=== PATIENT | female | born 1935 | race Caucasian/White ===

== ENCOUNTER 2016-10-19 12:52 | Inpatient (IN) | payer OTHER, MEDICARE ==
[2016-10-19] VITALS (7 sets, daily range): BP systolic 122–144; BP diastolic 60–70; PULSE 66–90; RESP 16–28; TEMP 97.6–97.7; O2SAT 98–100
[~2016-10-19] VITALS: Ht 152.4 cm; Wt 68.4 kg
[~2016-10-19 12:52] MED LIST: DEXAMETHASONE SOD PHOS 20 MG/5 ML VIAL IV ONE; LACTATED RINGER'S 1000 ML INJ 2,000 ML IV ONE; ONDANSETRON HCL 4 MG/2 ML VIAL IV PUSH ONE; PROPOFOL 200 MG/20 ML AMP IV ONE; ePHEDrine/NS 25 MG/5 ML SYR IV ONE
[2016-10-19] MEDS ORDERED: ONDANSETRON HCL 4 MG/2 ML VIAL ONE ×2 (12:58→13:30)
[2016-10-19] MEDS ORDERED: ceFAZolin 2 GM PREMIX 50 ML ONE (12:58)
[2016-10-19] MEDS ORDERED: GENTAMICIN 80 MG PREMIX 100 ML ONE (12:58)
[2016-10-19] MEDS ORDERED: MORPHINE SULFATE 8 MG/ML INJ ONE (12:58)
[2016-10-19 13:11] LABS: I-STAT POTASSIUM 4.9 MMOL/L (3.5-4.9)
[2016-10-19] MEDS ORDERED: DIPHTH/TETANUS/ACEL PERTUSSIS (BOOSTER) 0.5 ML VIAL/PFS IM ONE (13:15)
[2016-10-19] MEDS ORDERED: SODIUM CHLOR 0.9% 1000 ML INJ 1,000 ML IV SCH (13:19)
[2016-10-19 13:21] LABS: AUTOMATED NEUTROPHIL # 8.7 TH/MM3 (1.8-7.7); BASOPHIL % 0.3 % (0.0-2.0); EOSINOPHIL # 0.1 TH/MM3 (0-0.4); EOSINOPHIL % 0.4 % (0.0-4.0); HEMATOCRIT 34.7 % (35.0-46.0); HEMO FLAGS DIFF FINAL; LYMPH % 24.3 % (9.0-44.0); LYMPHOCYTE # 3.1 TH/MM3 (1.0-4.8); MEAN CELL VOLUME 90.8 FL (80.0-100.0); MEAN CORPUSCULAR HEMOGLOBIN 29.4 PG (27.0-34.0); MEAN CORPUSCULAR HGB CONC 32.4 % (32.0-36.0); MONO % 7.2 % (0.0-8.0); NEUT % 67.8 % (16.0-70.0); PLATELET COUNT 340 TH/MM3 (150-450); RED BLOOD COUNT 3.82 MIL/MM3 (4.00-5.30); RED CELL DISTRIBUTION WIDTH 12.8 % (11.6-17.2); WHITE BLOOD COUNT 12.8 TH/MM3 (4.0-11.0)
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
[2016-10-19 13:29] LABS: PROTHROMBIN TIME - PATIENT 11.2 SEC (9.8-11.6)
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
[2016-10-19] MEDS ORDERED: MORPHINE SULFATE 4 MG/ML INJ IV PRN (13:30)
[2016-10-19] MEDS ORDERED: SODIUM CHLORIDE 0.9% FLUSH 10 ML FLUSH IV FLUSH PRN (13:30)
[2016-10-19] MEDS ORDERED: ONDANSETRON HCL 4 MG/2 ML VIAL IV PRN (13:30)
[2016-10-19] MEDS ORDERED: Post-op Orders (for Pharmacy) MISC XX ONE ×2 (13:30→17:15)
[2016-10-19] MEDS ORDERED: NALOXONE HCL 0.4 MG/ML AMP IV PRN ×2 (13:30→17:15)
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
[2016-10-19] MEDS ORDERED: GENTAMICIN SULFATE 80 MG/2 ML VIAL ONE (13:44)
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
[2016-10-19] MEDS: fentaNYL 25 MCG/HR PATCH T-DERMAL SCH (14:00)
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
[2016-10-19] MEDS ORDERED: ACETAMINOPHEN 1000 MG/100 ML VIAL IV ONE (15:07)
[2016-10-19] MEDS ORDERED: FAMOTIDINE 20 MG/2 ML VIAL ONE (15:08)
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
[2016-10-19] MEDS ORDERED: TIZA4TAB PO (16:32)
[2016-10-19] MEDS ORDERED: LOVA40TA PO (16:32)
[2016-10-19] MEDS ORDERED: TRIMSOL LEFT EYE (16:32)
[2016-10-19] MEDS ORDERED: LORA-392 PO (16:32)
[2016-10-19] MEDS ORDERED: TYLETAB34 PO (16:32)
[2016-10-19] MEDS ORDERED: POTA-243 PO (16:32)
[2016-10-19] MEDS ORDERED: BUME1TAB PO (16:32)
[2016-10-19] MEDS ORDERED: CALC0.25 PO (16:32)
[2016-10-19] MEDS ORDERED: ZOFR4TAB PO (16:32)
[2016-10-19] MEDS ORDERED: MISCELLANEOUS PHARMACY INFORMATION XX ONE (17:15)
[2016-10-19] MEDS ORDERED: MISCELLANEOUS NURSING INFORMATION XX PRN (17:15)
[2016-10-19] MEDS ORDERED: SODIUM CHLORIDE 0.9% FLUSH 5 ML FLUSH IVF PRN (17:15)
[2016-10-19] MEDS ORDERED: diphenhydrAMINE HCL 25 MG CAP PO PRN (17:15)
[2016-10-19] MEDS ORDERED: Gentamicin Consult Pharmacy 1 EA IV PRN (17:15)
[2016-10-19] MEDS ORDERED: MAGNESIUM HYDROXIDE SUSP 30 ML CUP PO PRN (17:15)
[2016-10-19] MEDS ORDERED: ACETAMINOPHEN/HYDROcodone 325 MG/5 MG TAB PO PRN ×2 (17:15)
[2016-10-19] MEDS ORDERED: MIDAZOLAM HCL 2 MG/2 ML VIAL ONE (17:53)
[2016-10-19] MEDS ORDERED: fentaNYL CITRATE 250 MCG/5 ML AMP ONE (17:53)
[2016-10-19] MEDS: DEXT 5%-NACL 0.45% 1000 ML INJ 1,000 ML IV SCH (18:00)
[2016-10-19] MEDS ORDERED: DO NOT ADM ANY ANTICOAGULANT DRUGS PRN (18:15)
[2016-10-19] MEDS: PANTOPRAZOLE SODIUM 40 MG VIAL IV SCH (18:15)
[2016-10-19] MEDS: MORPHINE SULFATE 4 MG/ML INJ IV PUSH PRN (20:20)
[2016-10-19] MEDS: ONDANSETRON HCL 4 MG/2 ML VIAL IVP PRN (20:21)
[2016-10-19] MEDS ORDERED: SODIUM CHLORIDE 0.9% FLUSH 10 ML FLUSH IV FLUSH SCH (21:00)
[2016-10-19] MEDS: DOCUSATE SODIUM 50 MG/SENNA 8.6 MG TAB PO SCH (21:00)
[2016-10-19] MEDS ORDERED: DOCUSATE SODIUM 100 MG CAP PO SCH (21:00)
[2016-10-19] MEDS: MAGNESIUM HYDROXIDE SUSP 30 ML CUP PO SCH (21:00)
[2016-10-19] MEDS: SODIUM CHLORIDE 0.9% FLUSH 5 ML FLUSH IVF SCH (21:00)
[2016-10-19] MEDS ORDERED: BACITRACIN TOP OINT 15 GM TUBE TOPICAL PRN (21:30)
[2016-10-19] MEDS: BACITRACIN TOP OINT 15 GM TUBE TOPICAL SCH (21:36)
[2016-10-20] VITALS (13 sets, daily range): BP systolic 109–160; BP diastolic 53–76; PULSE 90–115; RESP 15–23; TEMP 98.5–99.3; O2SAT 96–100
[2016-10-20] MEDS: MORPHINE SULFATE 4 MG/ML INJ IV PUSH PRN (01:35)
[2016-10-20] MEDS: DEXT 5%-NACL 0.45% 1000 ML INJ 1,000 ML IV SCH (05:12)
[2016-10-20 05:35] LABS: AUTOMATED NEUTROPHIL # 11.2 TH/MM3 (1.8-7.7); BASOPHIL % 0.2 % (0.0-2.0); BICARBONATE 20.9 MEQ/L (21.0-32.0); HEMATOCRIT 28.2 % (35.0-46.0); HEMO FLAGS DIFF FINAL; LYMPH % 5.8 % (9.0-44.0); LYMPHOCYTE # 0.8 TH/MM3 (1.0-4.8); MEAN CELL VOLUME 90.8 FL (80.0-100.0); MEAN CORPUSCULAR HEMOGLOBIN 29.3 PG (27.0-34.0); MEAN CORPUSCULAR HGB CONC 32.3 % (32.0-36.0); MONO % 7.9 % (0.0-8.0); NEUT % 86.1 % (16.0-70.0); PLATELET COUNT 281 TH/MM3 (150-450); POTASSIUM 4.5 MEQ/L (3.5-5.1); RED CELL DISTRIBUTION WIDTH 13.1 % (11.6-17.2)
[2016-10-20] MEDS: MULTIVITAMINS/MINERALS THERAPEUTIC TAB PO SCH (08:14)
[2016-10-20] MEDS: DOCUSATE SODIUM 50 MG/SENNA 8.6 MG TAB PO SCH ×2 (08:14→21:14)
[2016-10-20] MEDS: SODIUM CHLORIDE 0.9% FLUSH 5 ML FLUSH IVF SCH ×2 (08:14→21:00)
[2016-10-20] MEDS: fentaNYL 25 MCG/HR PATCH T-DERMAL SCH (08:14)
[2016-10-20] MEDS: BACITRACIN TOP OINT 15 GM TUBE TOPICAL SCH ×2 (08:14→21:15)
[2016-10-20] MEDS ORDERED: GENTAMICIN 80 MG PREMIX 100 ML IV SCH (09:00)
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
--- NOTE | 2016-10-20 09:34 | RADRPT ---
EXAM DATE/TIME: 10/20/2016 08:45 [facility] COMPARISON: KNEE LEFT LTD (1 OR 2VWS), October 20, 2016, 8:39. INDICATIONS : Follow-up left ankle fracture. MEDICAL HISTORY : None. SURGICAL HISTORY : None. ENCOUNTER: Subsequent ACUITY: 2 days PAIN SCORE: 10/10 LOCATION: Left ankle. FINDINGS: The examination demonstrates a mildly displaced fracture of the distal fibula. The ankle mortise appe ars adequately aligned. Note is made of a moderately displaced fracture of the fifth metatarsal. The remainder of the foot is not well visualized. CONCLUSION: 1. Moderately displaced distal fibular fracture. 2. Fracture of the fifth metatarsal. Sukhdev So MD on October 20, 2016 at 9:32 Board Certified Radiologist. This report was verified electronically.
[2016-10-20] MEDS ORDERED: KETOROLAC TROMETHAMINE 30 MG/ML (IVP) VIAL IV PUSH SCH (12:00)
[2016-10-20] MEDS ORDERED: GENTAMICIN INJ 110 MG in SODIUM CHLORIDE 0.9% INJ 100 ML IV SCH (13:00)
[2016-10-20] MEDS: PANTOPRAZOLE SODIUM 40 MG VIAL IV SCH (13:02)
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
[2016-10-20] MEDS: POTASSIUM CHLORIDE 10 MEQ CONTROLLED RELEASE TAB PO SCH (15:08)
[2016-10-20] MEDS: BUMETANIDE 1 MG TAB PO SCH (15:08)
--- NOTE | 2016-10-20 15:55 | RADRPT ---
EXAM DATE/TIME: 10/20/2016 13:41 [facility] COMPARISON: CT ABDOMEN & PELVIS W/O CONTRAST, October 19, 2016, 13:19. INDICATIONS : Abnormal labs. MEDICAL HISTORY : Gastroesophageal reflux disease. Hypercholesterolemia. Hypertension. Anemia. Arthritis. Left knee fr acture. Left ankle fracture.Syncope. SURGICAL HISTORY : Wound debridement. ENCOUNTER: Initial ACUITY: 1 day PAIN SCORE: 0/10 LOCATION: Bilateral flank MEASUREMENTS: RIGHT KIDNEY: 9.6 x 5.1 x 4.2 cm LEFT KIDNEY: 8.6 x 5.0 x 4.3 cm FINDINGS: RIGHT KIDNEY: Renal cortex is normal in thickness with mildly increased echotexture. There is a simple cyst in the mid kidney measuring 13 mm. There is no hydronephrosis. LEFT KIDNEY: Renal cortex is normal in thickness with mildly increased echotexture. No hydronephrosis, stone, or m ass is visualized. BLADDER: Decompressed and therefore not evaluated. CONCLUSION: 1. Both kidneys demonstrate mild increased echotexture characteristic of medical renal disease. There is no hydronephrosis. 2. Simple benign-appearing 13 mm right renal cyst. Kenneth Arredondo MD on October 20, 2016 at 15:51 Board Certified Radiologist. This report was verified electronically.
--- NOTE | 2016-10-20 16:22 | EKG ---
Date Performed: 10/19/2016 Time Performed: 19:35:40 PTAGE: 80 years EKG: ECTOPIC ATRIAL RHYTHM NONSPECIFIC T-WAVE ABNORMALITY ABNORMAL ECG NO PREVIOUS TRACING DOCTOR: Raul Castillo Interpretating Date/Time 10/20/2016 16:20:34
[2016-10-20] MEDS ORDERED: ENOXAPARIN SODIUM 30 MG/0.3 ML SYRINGE SQ SCH (17:00)
--- NOTE | 2016-10-20 17:04 | RADRPT ---
EXAM DATE/TIME: 10/20/2016 15:34 [facility] COMPARISON: US KIDNEY/RENAL/BLADDER, October 20, 2016, 13:41. INDICATIONS : Syncope. Carotid bruit. Trama. MEDICAL HISTORY : Hypercholesterolemia. Hypertension. Gastroesophageal reflux disease. Anemia. Arthritis. Left knee fr acture. Left ankle fracture.Syncope. SURGICAL HISTORY : Wound debridement. ENCOUNTER: Initial ACUITY: 1 day PAIN SCORE: 0/10 LOCATION: Bilateral neck PEAK SYSTOLIC VELOCITIES (cm/sec): ICA/CCA RATIO: Right: 1.3 Left: 1.0 ICA: Right: 124.2 Left: 145.6 CCA: Right: 93.3 Left: 139.2 ECA: Right: 111.7 Left: 106.2 VERTEBRAL: Right: 83.9 antegrade Left: 116.1 antegrade Elevated flow velocities and ICA/CCA ratios have been found to correlate with increased degrees of vessel stenosis, calculated as percentage of diameter relative to a normal segment of distal ICA/CCA FINDINGS: RIGHT CAROTID: No significant stenosis is visualized. The waveforms are within normal limits. LEFT CAROTID: No significant stenosis is visualized. The waveforms are within normal limits. VERTEBRAL ARTERIES: Antegrade flow is seen in both vertebral arteries. MISCELLANEOUS: None. CONCLUSION: 1. There is mild atherosclerotic plaquing in the bifurcations bilaterally. 2. There is no hemodynamically significant carotid artery stenosis identified. Sukhdev So MD on October 20, 2016 at 16:15 Board Certified Radiologist. This report was verified electronically.
[2016-10-20] MEDS: POLYMYXIN/TRIMETHOPRIM OPHT SOLN 10 ML BTL LEFT EYE SCH (17:58)
[2016-10-20] MEDS ORDERED: SODIUM CHLOR 0.9% 1000 ML INJ 1,000 ML IV ONE (18:15)
[2016-10-20] MEDS: SODIUM CHLOR 0.9% 1000 ML INJ 1,000 ML IV SCH (19:09)
--- NOTE | 2016-10-20 20:32 | RADRPT ---
EXAM DATE/TIME: 10/20/2016 20:12 [facility] COMPARISON: No previous studies available for comparison. INDICATIONS : Follow-up left foot fractures. MEDICAL HISTORY : None. SURGICAL HISTORY : None. ENCOUNTER: Subsequent ACUITY: 2 days PAIN SCORE: Non-responsive. LOCATION: Left foot. FINDINGS: There is a comminuted segmental fracture of the distal shaft and neck region of the fifth metatarsal seen through a cast which obscures fine bony detail. The proximal portion of fracture has slight dors al angulation and about one half shaft width of medial displacement. The distal portion of the fractu re has slight plantar angulation. No intra-articular fracture seen. No subluxations. Second through fifth hammertoe again noted. Severe degenerative changes are present of the first meta tarsophalangeal joint and sesamoids. CONCLUSION: Comminuted, mildly displaced/angulated segmental fracture distally of the left fifth metatarsal as ab ove. Kenneth Macario MD on October 20, 2016 at 20:28 Board Certified Radiologist. This report was verified electronically.
--- NOTE | 2016-10-20 20:35 | RADRPT ---
EXAM DATE/TIME: 10/20/2016 20:20 [facility] COMPARISON: FOOT RIGHT (1 VW), October 19, 2016, 12:47. INDICATIONS : Follow-up foot fractures. MEDICAL HISTORY : None. SURGICAL HISTORY : None. ENCOUNTER: Subsequent ACUITY: 2 days PAIN SCORE: Non-responsive. LOCATION: Right foot. FINDINGS: Comminuted intra-articular fracture with minimal displacement seen base of the great toe distal phala nx. There are comminuted, essentially nondisplaced fractures in the neck regions of the second and third metatarsals. Minimally displaced intra-articular fracture seen of the base of the fourth toe proximal phalanx. No significant step off or incongruity seen of the articular surfaces. There are no subluxations. Sev ere osteoarthritis again seen in the first metatarsophalangeal and sesamoid. CONCLUSION: Non-to minimally displaced multifocal fracturing of the right foot including intra-articular fracture s of the great toe distal phalanx and fourth toe proximal phalanx and neck fractures of the second an d third metatarsals. Alignment is unchanged, near anatomic. No subluxations. No new fracture. Kenneth Macario MD on October 20, 2016 at 20:31 Board Certified Radiologist. This report was verified electronically.
[2016-10-20] MEDS: HEPARIN SODIUM - SQ 10,000 UNITS/ML VIAL SQ SCH (21:00)
[2016-10-20] MEDS: MAGNESIUM HYDROXIDE SUSP 30 ML CUP PO SCH (21:14)
[2016-10-21 04:00] VITALS: BP 142/67; PULSE 110; RESP 20; TEMP 99.6; O2SAT 93
[2016-10-21] MEDS: SODIUM CHLOR 0.9% 1000 ML INJ 1,000 ML IV SCH ×2 (04:00→14:00)
[2016-10-21] MEDS: POLYMYXIN/TRIMETHOPRIM OPHT SOLN 10 ML BTL LEFT EYE SCH ×4 (06:31→17:33)
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
[2016-10-21 08:00] VITALS: BP 149/78; PULSE 104; PULSE 111; RESP 18; TEMP 98.2; O2SAT 94
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
[2016-10-21 08:57] VITALS: O2SAT 94
[2016-10-21] MEDS: BACITRACIN TOP OINT 15 GM TUBE TOPICAL SCH ×2 (09:00→22:39)
[2016-10-21] MEDS: SODIUM CHLORIDE 0.9% FLUSH 5 ML FLUSH IVF SCH ×2 (09:00→22:54)
[2016-10-21] MEDS: BUMETANIDE 1 MG TAB PO SCH (09:00)
[2016-10-21] MEDS: HEPARIN SODIUM - SQ 10,000 UNITS/ML VIAL SQ SCH ×2 (09:00→22:38)
[2016-10-21] MEDS: POTASSIUM CHLORIDE 10 MEQ CONTROLLED RELEASE TAB PO SCH (09:00)
[2016-10-21] MEDS: MULTIVITAMINS/MINERALS THERAPEUTIC TAB PO SCH (09:00)
[2016-10-21] MEDS: DOCUSATE SODIUM 50 MG/SENNA 8.6 MG TAB PO SCH ×2 (09:00→22:38)
[2016-10-21 11:01] LABS: AUTOMATED NEUTROPHIL # 5.9 TH/MM3 (1.8-7.7); BASOPHIL % 0.1 % (0.0-2.0); EOSINOPHIL % 0.1 % (0.0-4.0); HEMATOCRIT 22.2 % (35.0-46.0); HEMO FLAGS DIFF FINAL; LYMPH % 11.7 % (9.0-44.0); LYMPHOCYTE # 0.9 TH/MM3 (1.0-4.8); MEAN CELL VOLUME 90.1 FL (80.0-100.0); MEAN CORPUSCULAR HGB CONC 33.3 % (32.0-36.0); MONO % 11.4 % (0.0-8.0); NEUT % 76.7 % (16.0-70.0); PLATELET COUNT 205 TH/MM3 (150-450); RED BLOOD COUNT 2.46 MIL/MM3 (4.00-5.30); RED CELL DISTRIBUTION WIDTH 13.2 % (11.6-17.2); WHITE BLOOD COUNT 7.7 TH/MM3 (4.0-11.0)
[2016-10-21 11:15] VITALS: BP 132/62; PULSE 108; RESP 18; TEMP 97.1; O2SAT 91
[2016-10-21 11:49] LABS: CALCIUM-PROTEIN CORRECTED 8.1 MG/DL (8.5-10.1); POTASSIUM 4.7 MEQ/L (3.5-5.1); TOTAL BILIRUBIN ADULT 0.2 MG/DL (0.2-1.0)
[2016-10-21] MEDS ORDERED: PROPOFOL 200 MG/20 ML AMP IV ONE (12:00)
[2016-10-21] MEDS ORDERED: ONDANSETRON HCL 4 MG/2 ML VIAL IV PUSH ONE (12:00)
[2016-10-21] MEDS ORDERED: NEOSTIGMINE 3 MG/3 ML SYR IV ONE (12:00)
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
[2016-10-21] MEDS ORDERED: GENTAMICIN SULFATE 80 MG/2 ML VIAL ONE (12:07)
[2016-10-21] MEDS ORDERED: ceFAZolin INJ 1,000 MG VIAL ONE (12:07)
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
[2016-10-21] MEDS ORDERED: SODIUM CHLOR 0.9% 250 ML INJ 250 ML IV ONE (12:15)
[2016-10-21] MEDS ORDERED: ACETAMINOPHEN 1000 MG/100 ML VIAL IV ONE (12:16)
[2016-10-21] MEDS ORDERED: fentaNYL CITRATE 250 MCG/5 ML AMP ONE (12:17)
[2016-10-21] MEDS ORDERED: FAMOTIDINE 20 MG/2 ML VIAL ONE (12:19)
[2016-10-21] MEDS ORDERED: VANCOMYCIN HCL 1000 MG VIAL ONE (12:22)
[2016-10-21] MEDS ORDERED: MAGN400S PO (13:35)
[2016-10-21] MEDS ORDERED: SENN1TAB PO (13:35)
[2016-10-21] MEDS ORDERED: ceFAZolin 2 GM PREMIX 50 ML IV SCH (13:45)
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
[2016-10-21] MEDS ORDERED: LACTATED RINGER'S 1000 ML INJ 1,000 ML IV SCH (14:00)
--- NOTE | 2016-10-21 14:29 | RADRPT ---
EXAM DATE/TIME: 10/21/2016 13:07 [facility] COMPARISON: ANKLE LEFT COMPLETE ([id number]), October 20, 2016, 8:45. INDICATIONS : Left ankle fracture. MEDICAL HISTORY : Hypercholesterolemia. Hypertension. Gastroesophageal reflux disease. Anemia. Arthritis. Left knee fra cture. Left ankle fracture.Syncope. SURGICAL HISTORY : Wound debridement. ENCOUNTER: Subsequent ACUITY: 1 day PAIN SCORE: Non-responsive. LOCATION: Left ankle FINDINGS: Two view exam was performed of the left ankle. There is fracture in the distal fibula. There is prox imal and lateral displacement distal fragment. The ankle is normally aligned. CONCLUSION: Distal fibula fracture. Kenneth Zambrano MD on October 21, 2016 at 14:25 Board Certified Radiologist. This report was verified electronically.
[2016-10-21] MEDS ORDERED: DO NOT ADM ANY ANTICOAGULANT DRUGS PRN (14:46)
[2016-10-21] MEDS ORDERED: *LABETALOL HCL 100 MG/20 ML VIAL PERIprocedural Use ONLY ONE (14:46)
[2016-10-21] MEDS ORDERED: *RESP: ALBUTEROL 2.5 MG/3 ML NEB (PRN) PERIprocedural Use ONLY NEB ONE (14:49)
[2016-10-21] MEDS: PANTOPRAZOLE SODIUM 40 MG VIAL IV SCH (16:00)
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
[2016-10-21 17:37] VITALS: BP 158/72; PULSE 74; RESP 16; TEMP 98.3; O2SAT 94
[2016-10-21 18:02] LABS: BACTERIA, URINE RARE /hpf; BLOOD, URINE SMALL (NEG); COMMENT (UR) CULT NOT INDICATED; CULTURE IF INDICATED CULT NOT INDICATED; GLUCOSE,URINE NEG (NEG); KETONE, URINE NEG (NEG); MUCUS URINE FEW /lpf (OCC); NITRITE,URINE NEG (NEG); URINE COLOR YELLOW (YELLW/STRAW)
[2016-10-21] MEDS: BUMETANIDE INJ 1 MG/4 ML VIAL IV PUSH SCH (19:36)
[2016-10-21 20:00] VITALS: BP 159/66; PULSE 79; PULSE 85; RESP 20; TEMP 97.8; O2SAT 96
[2016-10-21 20:21] LABS: CKMB 5.4 NG/ML (0.5-3.6)
[2016-10-21] MEDS: MAGNESIUM HYDROXIDE SUSP 30 ML CUP PO SCH (22:38)
[2016-10-21] MEDS: ceFAZolin 1,000 MG/NS 100 ML IV SCH ×2 (22:43)
[2016-10-22] VITALS (9 sets, daily range): BP systolic 149–189; BP diastolic 68–85; PULSE 57–106; RESP 16–22; TEMP 98.4–99.4; O2SAT 93–97
[2016-10-22] MEDS: POLYMYXIN/TRIMETHOPRIM OPHT SOLN 10 ML BTL LEFT EYE SCH ×4 (06:20→17:18)
--- NOTE | 2016-10-22 07:01 | RADRPT ---
EXAM DATE/TIME: 10/22/2016 05:59 [facility] COMPARISON: CHEST SINGLE AP, October 21, 2016, 6:09. INDICATIONS : Cough. Chest pressure. MEDICAL HISTORY : Hypercholesterolemia. Hypertension Gastroesophageal reflux disease. Anemia. Arthritis. SURGICAL HISTORY : None. ENCOUNTER: Subsequent ACUITY: 3 days PAIN SCORE: 2/10 LOCATION: Bilateral chest FINDINGS: A single view of the chest demonstrates the lungs to be symmetrically aerated without evidence of mas s, infiltrate or effusion. The cardiomediastinal contours are unremarkable. Age indeterminate left-s ided rib fractures are again noted . Prominent density posterior to the heart likely large hiatal he rnia CONCLUSION: Lungs remain grossly clear except for minimal left basilar atelectasis. Suspected large hiatal hernia . No interval change. Juan C Carrion MD on October 22, 2016 at 6:57 Board Certified Radiologist. This report was verified electronically.
[2016-10-22 07:40] LABS: AUTOMATED NEUTROPHIL # 7.2 TH/MM3 (1.8-7.7); BASOPHIL % 0.1 % (0.0-2.0); HEMO FLAGS DIFF FINAL; LYMPHOCYTE # 0.6 TH/MM3 (1.0-4.8); MEAN CELL VOLUME 89.3 FL (80.0-100.0); MEAN CORPUSCULAR HEMOGLOBIN 30.6 PG (27.0-34.0); MEAN CORPUSCULAR HGB CONC 34.3 % (32.0-36.0); MONO % 9.5 % (0.0-8.0); NEUT % 83.4 % (16.0-70.0); PLATELET COUNT 206 TH/MM3 (150-450); RED BLOOD COUNT 2.35 MIL/MM3 (4.00-5.30); RED CELL DISTRIBUTION WIDTH 13.1 % (11.6-17.2); WHITE BLOOD COUNT 8.7 TH/MM3 (4.0-11.0)
[2016-10-22 08:05] LABS: ANION GAP 8 MEQ/L (5-15); AST (GOT) 29 U/L (15-37); BICARBONATE 21.5 MEQ/L (21.0-32.0); BLOOD UREA NITROGEN 50 MG/DL (7-18); CHLORIDE 110 MEQ/L (98-107); GLOMERULAR FILTRATION RATE 18 ML/MIN (>89); POTASSIUM 4.5 MEQ/L (3.5-5.1); SODIUM (NA) 139 MEQ/L (136-145)
[2016-10-22 08:16] LABS: ALKALINE PHOSPHATASE 80 U/L (45-117); ALT (GPT) LESS THAN 6 U/L (10-53); CALCIUM-PROTEIN CORRECTED 7.9 MG/DL (8.5-10.1); RANDOM GENTAMICIN 1.7 MCG/ML; TOTAL BILIRUBIN ADULT 0.2 MG/DL (0.2-1.0)
[2016-10-22] MEDS: DOCUSATE SODIUM 50 MG/SENNA 8.6 MG TAB PO SCH ×3 (08:59→21:00)
[2016-10-22] MEDS: oxyCODONE/ACETAMINOPHEN 5 MG/325 MG TAB PO PRN ×2 (08:59→15:35)
[2016-10-22] MEDS: MULTIVITAMINS/MINERALS THERAPEUTIC TAB PO SCH (08:59)
[2016-10-22] MEDS: BUMETANIDE INJ 1 MG/4 ML VIAL IV PUSH SCH (09:00)
[2016-10-22] MEDS: LACTULOSE SYRUP 20 GM/30 ML CUP PO SCH (09:00)
[2016-10-22] MEDS: HEPARIN SODIUM - SQ 10,000 UNITS/ML VIAL SQ SCH ×3 (09:00→21:00)
[2016-10-22] MEDS: SODIUM CHLORIDE 0.9% FLUSH 5 ML FLUSH IVF SCH ×2 (09:01→21:00)
[2016-10-22] MEDS: BACITRACIN TOP OINT 15 GM TUBE TOPICAL SCH ×2 (09:01→20:35)
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
--- NOTE | 2016-10-22 11:49 | HHI.NPPN ---
Subjective General Problems: Edema, Hypertension Renal Failure: Acute Interval History Renal function is slightly better. She is more awake today, has good urine output. (Cristina Felipe) Review of Systems Cardiovascular Cardiac: Edema (Cristina Felipe) Musculoskeletal MS: Pain/Stiffness (Cristina Felipe) Objective Data Data 10/21/16 10/22/16 19:00 07:00 Intake Total 1982 ml Output Total 550 ml 800 ml Balance 1432 ml -800 ml Intake Oral 0 ml IV Total 1482 ml Other 500 ml Output Urine Total 450 ml 800 ml Estimated Blood Loss 100 ml Vital Signs Date Time Temp Pulse Resp B/P Pulse Ox O2 Delivery O2 Flow Rate FiO2 10/22/16 08:00 98.9 101 16 181/79 95 10/22/16 04:00 99.3 97 20 149/71 94 10/22/16 00:00 99.1 89 20 150/68 97 10/21/16 20:00 97.8 85 20 159/66 96 10/21/16 20:00 79 10/21/16 19:00 Nasal Cannula 3.00 10/21/16 17:37 98.3 74 16 158/72 94 10/21/16 16:00 97.8 78 16 149/72 94 Nasal Cannula 3 10/21/16 15:45 75 16 149/70 93 Nasal Cannula 3 10/21/16 15:30 79 15 152/69 92 Nasal Cannula 3 10/21/16 15:15 84 15 160/75 91 Nasal Cannula 3 10/21/16 15:00 98 15 168/80 95 Simple Mask 8 10/21/16 14:45 98.2 105 16 178/82 94 Simple Mask 8 (Cristina Felipe) -: 10/22/16 0538 10/22/16 0538 Imaging Last 72 hours Impressions Chest X-Ray 10/22/16 0600 Signed Impressions: Service Date/Time: Saturday, October 22, 2016 05:59 - CONCLUSION: Lungs remain grossly clear except for minimal left basilar atelectasis. Suspected large hiatal hernia. No interval change. Juan C Carrion MD Chest X-Ray 10/21/16 0600 Signed Impressions: Service Date/Time: Friday, October 21, 2016 06:09 - CONCLUSION: 1. Left basilar atelectasis. 2. Multiple left-sided rib fractures without pneumothorax. 3. Minimal lucency medially adjacent to the left heart border is likely from hiatal hernia versus less likely pneumothorax. Lakhwinder Scott MD Ankle X-Ray 10/21/16 Signed Impressions: Service Date/Time: Friday, October 21, 2016 13:07 - CONCLUSION: Distal fibula fracture. Kenneth Zambrano MD Renal Ultrasound 10/20/16 Signed Impressions: Service Date/Time: Thursday, October 20, 2016 13:41 - CONCLUSION: 1. Both kidneys demonstrate mild increased echotexture characteristic of medical renal disease. There is no hydronephrosis. 2. Simple benign-appearing 13 mm right renal cyst. Kenneth Arredondo MD Knee X-Ray 10/20/16 Signed Impressions: Service Date/Time: Thursday, October 20, 2016 08:39 - CONCLUSION: 1. The exam demonstrates advanced tricompartmental osteoarthritis. 2. There is a large, high density effusion in the suprapatella bursa. I do not see a definite fracture however, with a high density effusion occult fracture and hemorrhage cannot be excluded. CT imaging of the knee could be performed for more definitive assessment if it is felt clinically warranted. Sukhdev So MD Foot X-Ray 10/20/16 Signed Impressions: Service Date/Time: Thursday, October 20, 2016 20:20 - CONCLUSION: Non-to minimally displaced multifocal fracturing of the right foot including intra-articular fractures of the great toe distal phalanx and fourth toe proximal phalanx and neck fractures of the second and third metatarsals. Alignment is unchanged, near anatomic. No subluxations. No new fracture. Kenneth Macario MD Foot X-Ray 10/20/16 Signed Impressions: Service Date/Time: Thursday, October 20, 2016 20:12 - CONCLUSION: Comminuted, mildly displaced/angulated segmental fracture distally of the left fifth metatarsal as above. Kenneth Macario MD Carotid Artery Ultrasound 10/20/16 Signed Impressions: Service Date/Time: Thursday, October 20, 2016 15:34 - CONCLUSION: 1. There is mild atherosclerotic plaquing in the bifurcations bilaterally. 2. There is no hemodynamically significant carotid artery stenosis identified. Sukhdev So MD Ankle X-Ray 10/20/16 0000 Signed Impressions: Service Date/Time: Thursday, October 20, 2016 08:45 - CONCLUSION: 1. Moderately displaced distal fibular fracture. 2. Fracture of the fifth metatarsal. Sukhdev So MD Pelvis X-Ray 10/19/16 130 Signed Impressions: Service Date/Time: Wednesday, October 19, 2016 12:47 - CONCLUSION: No acute disease. Chad Wilkes MD Maxillofacial CT 10/19/16 130 Signed Impressions: Service Date/Time: Wednesday, October 19, 2016 13:10 - CONCLUSION: Soft tissue swelling. No evidence of acute fracture or paranasal sinus disease. Intact temporal mandibular joints. Chad Wilkes MD Head CT 10/19/16 130 Signed Impressions: Service Date/Time: Wednesday, October 19, 2016 13:09 - CONCLUSION: Aging brain with chronic ischemic white matter changes. No evidence of acute infarct, hemorrhage, mass or edema. No extra-axial fluid collections. Intact skull Chad Wilkes MD Chest X-Ray 10/19/16 130 Signed Impressions: Service Date/Time: Wednesday, October 19, 2016 12:47 - CONCLUSION: No acute cardiopulmonary process. Nondisplaced fractures of the left fourth through seventh ribs Chad Wilkes MD Chest CT 10/19/16 130 Signed Impressions: Service Date/Time: Wednesday, October 19, 2016 13:19 - CONCLUSION: 1. Left clavicle and left rib fractures with mild contusion along the lateral margin the left upper lobe. 2. Otherwise clear lungs 3. 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 4. Intact mediastinal structures. Chad Wilkes MD Cervical Spine CT 10/19/16 130 Signed Impressions: Service Date/Time: Wednesday, October 19, 2016 13:10 - CONCLUSION: 1. No evidence of acute fracture or traumatic listhesis. 2. Advanced right-sided facet arthropathy. 3. Moderate degenerative disc disease. 4. No acute soft tissue abnormality. Chad Wilkes MD Abdomen/Pelvis CT 10/19/16 130 Signed Impressions: Service Date/Time: Wednesday, October 19, 2016 13:19 - CONCLUSION: 1. 2.2 cm hepatic cyst. 2. Large paraesophageal diaphragmatic hernia containing stomach, left. 3. No evidence of soft tissue or bony traumatic injury. Chad Wilkes MD Tubes & Lines: [place] (Cristina Felipe [employer]AR MECH[employer]IC) Physical Exam General Appearance: Well Developed, No Acute Distress, Comfortable Appearance Remarks multiple facial abrasion. (Cristina Felipe B. [employer] MECH[employer]IC) Throat Throat Exam: Oral Mucosa [place] & Moist (Cristina Felipe B. [employer] MECH[employer]IC) Pulmonary Resp Exam: No Distress, Crackles (Cristina Felipe B. [employer] MECH[employer]IC) Cardiology CV Exam: Regular, Normal Sinus Rhythm (Cristina Felipe B. [employer] ME[employer]IC) Gastrointestinal/Abdomen GI Exam: Soft, Non-Tender, Bowel Sounds Present (Cristina Felipe B. [employer]) Musculoskeletal MS Exam: Joints Intact, Unable to Ambulate MS Remarks both lower extremities are wrapped, wound vac on left (Cristina Felipe B. [employer] ME[employer]IC) Integumentary Skin Exam: Warm, Dry, Intact (Cristina Felipe B. [employer]AR MECH[employer]IC) Extremeties Extremities Exam: Pedal Pulses Palpable, Moderate Edema (Cristnia Felipe B. [employer]AR MECH[employer]IC) Neurologic Neuro Exam: Alert, Awake, Oriented, Speech Clear, Moving All Extremities ( Cristina Felipe B. [employer]AR MECH[employer]IC) Psychiatric Psych Exam: Appropriate Responses (Cristina Felipe BJennifer [employer]AR MECH[employer]IC) Assessment/Plan Discussed Condition With: Patient, Spouse Assessment Summary: CAR/Acute Renal Failure, Fluid/Volume Overload, Proteinuria , Hypertension Problem List: (1) Acute renal failure Plan: She had elevated creatinine on arrival, suggesting underlying CKD, no baseline labs for comparison renal US suggesting medical renal disease CPK is not that high so rhabdomyolysis is unlikely she was started on diuretics yesterday as she has developed edema and has positive fluid balance change Bumex to PO dosage, 1 mg BID monitor urine output quantify proteinuria avoid nephrotoxic medications, renally dose medications when appropriate repeat renal panel in AM (2) Trauma Plan: s/p surgery defer to trauma team, continue pain control, wound care (3) Anemia Plan: check iron profile (Cristina Felipe B. [employer] MECH[employer]) Plan patient was seen and examined. UA is not consistent with rhabdomyolysis. CPK only mildly elevated. Change Bumex to PO. Avoid nephrotoxic agents. (Jose Luis Blackburn MD) Cristina Felipe [facility] Oct 22, 2016 11:49 Jose Luis Blackburn MD Oct 22, 2016 18:33
[2016-10-22] MEDS: ceFAZolin 1,000 MG/NS 100 ML IV SCH ×2 (12:05)
[2016-10-22] MEDS ORDERED: PHARMACY ORDERED LAB ONE ×2 (12:45→14:00)
[2016-10-22] MEDS: PANTOPRAZOLE SODIUM 40 MG VIAL IV SCH (13:40)
[2016-10-22] MEDS: REMOVE OLD DURAGESIC (FENTANYL) PATCH T-DERMAL SCH (13:40)
[2016-10-22] MEDS: BUMETANIDE 1 MG TAB PO SCH (17:18)
[2016-10-22] MEDS: MAGNESIUM HYDROXIDE SUSP 30 ML CUP PO SCH ×2 (20:34→21:00)
[2016-10-23] VITALS (13 sets, daily range): BP systolic 133–186; BP diastolic 61–90; PULSE 75–98; RESP 17–20; TEMP 98.2–99.2; O2SAT 95–98
[2016-10-23 00:04] LABS: HEMATOCRIT 25.8 % (35.0-46.0); REVIEW FLAG FINAL
[2016-10-23] MEDS: ceFAZolin 1,000 MG/NS 100 ML IV SCH ×6 (00:30→22:16)
[2016-10-23] MEDS ORDERED: MORPHINE SULFATE 4 MG/ML INJ IV SCH (01:30)
[2016-10-23] MEDS ORDERED: ACETAMINOPHEN 1000 MG/100 ML VIAL IV SCH (01:30)
[2016-10-23] MEDS ORDERED: HALOPERIDOL LACTATE 5 MG/ML AMP IV PRN (02:00)
[2016-10-23] MEDS: POLYMYXIN/TRIMETHOPRIM OPHT SOLN 10 ML BTL LEFT EYE SCH ×4 (02:08→17:20)
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
[2016-10-23] MEDS ORDERED: BISACODYL 10 MG SUPP RECTAL ONE (09:00)
[2016-10-23] MEDS ORDERED: BISACODYL EC 5 MG TABEC PO ONE (09:00)
[2016-10-23] MEDS: SODIUM CHLORIDE 0.9% FLUSH 5 ML FLUSH IVF SCH ×2 (09:00→21:00)
[2016-10-23 09:14] LABS: HEMATOCRIT 25.5 % (35.0-46.0); MEAN CELL VOLUME 86.8 FL (80.0-100.0); MEAN CORPUSCULAR HEMOGLOBIN 29.7 PG (27.0-34.0); MEAN CORPUSCULAR HGB CONC 34.2 % (32.0-36.0); PLATELET COUNT 257 TH/MM3 (150-450); RED BLOOD COUNT 2.93 MIL/MM3 (4.00-5.30); RED CELL DISTRIBUTION WIDTH 14.6 % (11.6-17.2); REVIEW FLAG FINAL
[2016-10-23 09:46] LABS: ANION GAP 8 MEQ/L (5-15); BICARBONATE 22.7 MEQ/L (21.0-32.0); BLOOD UREA NITROGEN 51 MG/DL (7-18); CHLORIDE 108 MEQ/L (98-107); FERRITIN 535 NG/ML (8-252); GLOMERULAR FILTRATION RATE 21 ML/MIN (>89); POTASSIUM 4.1 MEQ/L (3.5-5.1); RANDOM GENTAMICIN 0.6 MCG/ML; SODIUM (NA) 139 MEQ/L (136-145); TRANSFERRIN IRON PROFILE 127 MG/DL (200-360)
[2016-10-23] MEDS: HEPARIN SODIUM - SQ 10,000 UNITS/ML VIAL SQ SCH ×2 (10:03→22:15)
[2016-10-23] MEDS: LACTULOSE SYRUP 20 GM/30 ML CUP PO SCH (10:03)
[2016-10-23] MEDS: DOCUSATE SODIUM 50 MG/SENNA 8.6 MG TAB PO SCH ×2 (10:04→22:15)
[2016-10-23] MEDS: BUMETANIDE 1 MG TAB PO SCH ×2 (10:04→17:23)
[2016-10-23] MEDS: MULTIVITAMINS/MINERALS THERAPEUTIC TAB PO SCH (10:21)
[2016-10-23] MEDS: BACITRACIN TOP OINT 15 GM TUBE TOPICAL SCH ×2 (10:22→22:15)
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
[2016-10-23] MEDS: MORPHINE SULFATE 4 MG/ML INJ IV PRN (11:22)
[2016-10-23] MEDS: ACETAMINOPHEN 1000 MG/100 ML VIAL IV PRN (12:24)
[2016-10-23] MEDS: PANTOPRAZOLE SODIUM 40 MG VIAL IV SCH (13:32)
[2016-10-23] MEDS: ENALAPRILAT 1.25 MG/ML VIAL IV PUSH PRN (15:02)
--- NOTE | 2016-10-23 15:48 | HHI.NPPN ---
Subjective General Problems: Edema, Hypertension Renal Failure: Acute Interval History Renal function is better. She is having some pain. Good urine output. (Cristina Felipe) Review of Systems Cardiovascular Cardiac: Edema (Cristian Felipe) Musculoskeletal MS: Pain/Stiffness (Cristina Felipe) Objective Data Data 10/22/16 10/23/16 19:00 07:00 Intake Total 360 ml Output Total 1550 ml 1450 ml Balance -1190 ml -1450 ml Intake Oral 360 ml Output Urine Total 1550 ml 1450 ml Vital Signs Date Time Temp Pulse Resp B/P Pulse Ox O2 Delivery O2 Flow Rate FiO2 10/23/16 14:51 97 Nasal Cannula 3.00 10/23/16 14:13 95 185/88 10/23/16 12:00 98.6 94 17 186/87 97 10/23/16 09:54 96 Nasal Cannula 3.00 10/23/16 08:00 98.7 80 17 182/84 98 10/23/16 04:45 95 10/23/16 04:00 98.7 75 20 133/61 95 10/23/16 02:34 18 10/23/16 02:34 18 10/23/16 02:32 98.5 98 18 163/73 96 10/23/16 01:12 98 18 182/90 96 10/23/16 00:42 98.2 97 20 184/79 95 10/22/16 20:30 105 10/22/16 20:00 Nasal Cannula 3.00 10/22/16 20:00 98.4 57 18 166/85 10/22/16 16:25 99.1 100 22 189/75 96 10/22/16 16:00 99.3 103 16 177/77 94 (Cristina Felipe) -: 10/23/16 0821 10/23/16 0821 Imaging Last 72 hours Impressions Chest X-Ray 10/22/16599 Signed Impressions: Service Date/Time: Saturday, October 22, 2016 05:59 - CONCLUSION: Lungs remain grossly clear except for minimal left basilar atelectasis. Suspected large hiatal hernia. No interval change. Juan C Carrion MD Chest X-Ray 10/21/16 06 Signed Impressions: Service Date/Time: Friday, October 21, 2016 06:09 - CONCLUSION: 1. Left basilar atelectasis. 2. Multiple left-sided rib fractures without pneumothorax. 3. Minimal lucency medially adjacent to the left heart border is likely from hiatal hernia versus less likely pneumothorax. Lakhwinder Scott MD Ankle X-Ray 10/21/16 0000 Signed Impressions: Service Date/Time: Friday, October 21, 2016 13:07 - CONCLUSION: Distal fibula fracture. Kenneth Zambrano MD Tubes & Lines: [place] (Cristina Felipe B. TELEPHONE INTERCEPTOR OPERATOR) Physical Exam General Appearance: Well Developed, No Acute Distress, Comfortable Appearance Remarks multiple facial abrasion. (Cristina Felipe B. TELEPHONE INTERCEPTOR OPERATOR) Throat Throat Exam: Oral Mucosa [place] & Moist (Rocael Felipeon B. TELEPHONE INTERCEPTOR OPERATOR) Pulmonary Resp Exam: No Distress, Crackles (DestineeCristina B. TELEPHONE INTERCEPTOR OPERATOR) Cardiology CV Exam: Regular, Normal Sinus Rhythm (Cristina Felipe B. TELEPHONE INTERCEPTOR OPERATOR) Gastrointestinal/Abdomen GI Exam: Soft, Non-Tender, Bowel Sounds Present (DestineeCristina B. TELEPHONE INTERCEPTOR OPERATOR) Musculoskeletal MS Exam: Joints Intact, Unable to Ambulate MS Remarks both lower extremities are wrapped, wound vac on left (Cristina Felipe B. TELEPHONE INTERCEPTOR OPERATOR) Integumentary Skin Exam: Warm, Dry, Intact (DestineeCristina B. TELEPHONE INTERCEPTOR OPERATOR) Extremeties Extremities Exam: Pedal Pulses Palpable, Moderate Edema (DestineeCristina B. TELEPHONE INTERCEPTOR OPERATOR) Neurologic Neuro Exam: Alert, Awake, Oriented, Speech Clear, Moving All Extremities ( Cristina Felipe B. TELEPHONE INTERCEPTOR OPERATOR) Psychiatric Psych Exam: Appropriate Responses (Cristina Felipe B. TELEPHONE INTERCEPTOR OPERATOR) Assessment/Plan Discussed Condition With: Patient, Spouse Assessment Summary: CAR/Acute Renal Failure, Fluid/Volume Overload, Proteinuria , Hypertension Problem List: (1) Acute renal failure Plan: may have underlying CKD, no baseline labs for comparison renal US suggesting medical renal disease no electrolyte concerns continue Bumex BID, having good response monitor urine output avoid nephrotoxic medications, renally dose medications when appropriate daily renal panel (2) Trauma Plan: s/p surgery defer to trauma team, continue pain control, wound care (3) Anemia Plan: slight iron deficiency start oral iron (Cristina Felipe) Plan patient was seen and examined. Renal function is improving. Continue Bumex cautiously. (Jose Luis Blackburn MD) Cristina Felipe Oct 23, 2016 15:48 Jose Luis Blackburn MD Oct 24, 2016 20:25
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
[2016-10-23] MEDS: FERROUS SULFATE 325 MG (65 MG ELEMENTAL IRON) TAB PO SCH (17:23)
[2016-10-23] MEDS ORDERED: TRAM50TA PO (19:57)
[2016-10-23] MEDS ORDERED: DIFL0.0512 (19:59)
[2016-10-23] MEDS ORDERED: FERR325T8 PO (20:00)
[2016-10-23] MEDS ORDERED: OMEP20TA PO (20:01)
[2016-10-23] MEDS ORDERED: AMLO10TA2 PO (20:01)
[2016-10-23] MEDS ORDERED: ATOR10TA15 PO (20:02)
[2016-10-23] MEDS ORDERED: FLUO40CA PO (20:03)
[2016-10-23] MEDS: MAGNESIUM HYDROXIDE SUSP 30 ML CUP PO SCH (21:00)
[2016-10-23] MEDS: oxyCODONE/ACETAMINOPHEN 5 MG/325 MG TAB PO PRN (22:19)
[2016-10-24] VITALS (10 sets, daily range): BP systolic 137–195; BP diastolic 65–91; PULSE 72–100; RESP 16–20; TEMP 97.5–99; O2SAT 94–96
[2016-10-24] MEDS: POLYMYXIN/TRIMETHOPRIM OPHT SOLN 10 ML BTL LEFT EYE SCH ×4 (00:32→18:00)
[2016-10-24] MEDS: ENALAPRILAT 1.25 MG/ML VIAL IV PUSH PRN (06:34)
[2016-10-24] MEDS: oxyCODONE/ACETAMINOPHEN 5 MG/325 MG TAB PO PRN (06:35)
[2016-10-24] MEDS ORDERED: cloNIDine HCL 0.1 MG TAB PO PRN (08:15)
[2016-10-24] MEDS: LACTULOSE SYRUP 20 GM/30 ML CUP PO SCH (08:39)
[2016-10-24] MEDS: FAMOTIDINE 20 MG TAB PO SCH ×2 (08:40→22:09)
[2016-10-24] MEDS: DOCUSATE SODIUM 50 MG/SENNA 8.6 MG TAB PO SCH ×2 (08:40→21:00)
[2016-10-24] MEDS: MULTIVITAMINS/MINERALS THERAPEUTIC TAB PO SCH (08:40)
[2016-10-24] MEDS: FERROUS SULFATE 325 MG (65 MG ELEMENTAL IRON) TAB PO SCH (08:40)
[2016-10-24] MEDS: ATORVASTATIN 10 MG TAB PO SCH (08:40)
[2016-10-24] MEDS: HEPARIN SODIUM - SQ 10,000 UNITS/ML VIAL SQ SCH ×2 (08:41→22:16)
[2016-10-24] MEDS: BUMETANIDE 1 MG TAB PO SCH ×2 (08:41→18:04)
[2016-10-24] MEDS: BACITRACIN TOP OINT 15 GM TUBE TOPICAL SCH ×2 (08:42→22:08)
[2016-10-24] MEDS: SODIUM CHLORIDE 0.9% FLUSH 5 ML FLUSH IVF SCH ×2 (08:43→22:08)
[2016-10-24] MEDS ORDERED: FLUoxetine HCL 20 MG CAP PO SCH (09:00)
[2016-10-24] MEDS ORDERED: FERROUS SULFATE 325 MG (65 MG ELEMENTAL IRON) TAB PO SCH (09:00)
[2016-10-24] MEDS: FLUoxetine HCL 20 MG CAP PO SCH (09:20)
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
[2016-10-24] MEDS: ceFAZolin 1,000 MG/NS 100 ML IV SCH ×2 (12:11)
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
[2016-10-24 12:43] LABS: BICARBONATE 21.2 MEQ/L (21.0-32.0); POTASSIUM 3.6 MEQ/L (3.5-5.1)
[2016-10-24 14:04] LABS: HEMATOCRIT 26.4 % (35.0-46.0); MEAN CELL VOLUME 88.3 FL (80.0-100.0); MEAN CORPUSCULAR HEMOGLOBIN 29.6 PG (27.0-34.0); MEAN CORPUSCULAR HGB CONC 33.5 % (32.0-36.0); PLATELET COUNT 324 TH/MM3 (150-450); REVIEW FLAG FINAL; WHITE BLOOD COUNT 11.2 TH/MM3 (4.0-11.0)
--- NOTE | 2016-10-24 17:04 | HHI.PR ---
Subjective Subjective Notes pt states pain cotrolled pos BM no complaints Objective Vitals/I&O Vital Signs Date Time Temp Pulse Resp B/P Pulse Ox O2 Delivery O2 Flow Rate FiO2 10/24/16 12:00 99.0 100 20 142/65 94 10/24/16 09:58 Nasal Cannula 3.00 Labs Laboratory Tests Test 10/24/16 10:38 White Blood Count 11.2 Red Blood Count 3.00 Hemoglobin 8.9 Hematocrit 26.4 Mean Corpuscular Volume 88.3 Mean Corpuscular Hemoglobin 29.6 Mean Corpuscular Hemoglobin 33.5 Concent Red Cell Distribution Width 14.0 Platelet Count 324 Mean Platelet Volume 8.6 Sodium Level 136 Potassium Level 3.6 Chloride Level 102 Carbon Dioxide Level 21.2 Anion Gap 13 Blood Urea Nitrogen 57 Creatinine 1.98 Estimat Glomerular Filtration 24 Rate Random Glucose 71 Calcium Level 8.5 Radiology Last Impressions Chest X-Ray 10/21/16 0600 Signed Impressions: Service Date/Time: Friday, October 21, 2016 06:09 - CONCLUSION: 1. Left basilar atelectasis. 2. Multiple left-sided rib fractures without pneumothorax. 3. Minimal lucency medially adjacent to the left heart border is likely from hiatal hernia versus less likely pneumothorax. Lakhwinder Scott MD Renal Ultrasound 10/20/16 0000 Signed Impressions: Service Date/Time: Thursday, October 20, 2016 13:41 - CONCLUSION: 1. Both kidneys demonstrate mild increased echotexture characteristic of medical renal disease. There is no hydronephrosis. 2. Simple benign-appearing 13 mm right renal cyst. Kenneth Arredondo MD Knee X-Ray 10/20/16 0000 Signed Impressions: Service Date/Time: Thursday, October 20, 2016 08:39 - CONCLUSION: 1. The exam demonstrates advanced tricompartmental osteoarthritis. 2. There is a large, high density effusion in the suprapatella bursa. I do not see a definite fracture however, with a high density effusion occult fracture and hemorrhage cannot be excluded. CT imaging of the knee could be performed for more definitive assessment if it is felt clinically warranted. Sukhdev So MD Foot X-Ray 10/20/16 0000 Signed Impressions: Service Date/Time: Thursday, October 20, 2016 20:20 - CONCLUSION: Non-to minimally displaced multifocal fracturing of the right foot including intra-articular fractures of the great toe distal phalanx and fourth toe proximal phalanx and neck fractures of the second and third metatarsals. Alignment is unchanged, near anatomic. No subluxations. No new fracture. Kenneth Macario MD Carotid Artery Ultrasound 10/20/16 0000 Signed Impressions: Service Date/Time: Thursday, October 20, 2016 15:34 - CONCLUSION: 1. There is mild atherosclerotic plaquing in the bifurcations bilaterally. 2. There is no hemodynamically significant carotid artery stenosis identified. Sukhdev So MD Ankle X-Ray 10/20/16 0000 Signed Impressions: Service Date/Time: Thursday, October 20, 2016 08:45 - CONCLUSION: 1. Moderately displaced distal fibular fracture. 2. Fracture of the fifth metatarsal. Sukhdev So MD Pelvis X-Ray 10/19/16 1303 Signed Impressions: Service Date/Time: Wednesday, October 19, 2016 12:47 - CONCLUSION: No acute disease. Chad Wilkes MD Maxillofacial CT 10/19/16 130 Signed Impressions: Service Date/Time: Wednesday, October 19, 2016 13:10 - CONCLUSION: Soft tissue swelling. No evidence of acute fracture or paranasal sinus disease. Intact temporal mandibular joints. Chad Wilkes MD Head CT 10/19/16 130 Signed Impressions: Service Date/Time: Wednesday, October 19, 2016 13:09 - CONCLUSION: Aging brain with chronic ischemic white matter changes. No evidence of acute infarct, hemorrhage, mass or edema. No extra-axial fluid collections. Intact skull Chad Wilkes MD Chest CT 10/19/16 130 Signed Impressions: Service Date/Time: Wednesday, October 19, 2016 13:19 - CONCLUSION: 1. Left clavicle and left rib fractures with mild contusion along the lateral margin the left upper lobe. 2. Otherwise clear lungs 3. 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 4. Intact mediastinal structures. Chad Wilkes MD Cervical Spine CT 10/19/16 1303 Signed Impressions: Service Date/Time: Wednesday, October 19, 2016 13:10 - CONCLUSION: 1. No evidence of acute fracture or traumatic listhesis. 2. Advanced right-sided facet arthropathy. 3. Moderate degenerative disc disease. 4. No acute soft tissue abnormality. Chad Wilkes MD Abdomen/Pelvis CT 10/19/16 1303 Signed Impressions: Service Date/Time: Wednesday, October 19, 2016 13:19 - CONCLUSION: 1. 2.2 cm hepatic cyst. 2. Large paraesophageal diaphragmatic hernia containing stomach, left. 3. No evidence of soft tissue or bony traumatic injury. Chad Wilkes MD Tibia/Fibula X-Ray 10/19/16 0000 Signed Impressions: Service Date/Time: Wednesday, October 19, 2016 12:47 - CONCLUSION: Ankle fracture and foot fracture. Recommend complete 3 view ankle films and foot films Kenneth Ignacio MD Shoulder X-Ray 10/19/16 0000 Signed Impressions: Service Date/Time: Wednesday, October 19, 2016 00:00 - CONCLUSION: 1. Intact glenohumeral joint 2. Fractured left clavicle 3. Left rib fractures. Chad Wilkes MD Femur X-Ray 10/19/16 0000 Signed Impressions: Service Date/Time: Wednesday, October 19, 2016 12:47 - CONCLUSION: Unremarkable examination of the left femur. Kenneth Ignacio MD Lungs: Clear Abdomen: Non-tender Extremities: Other A/P Problem List: (1) Rib fractures (2) Laceration of lip (3) Avulsion of skin of lower leg (4) Foot fracture, right (5) Foot fracture, left (6) Closed left clavicular fracture Assessment and Plan S?P LONG-TERM multiple orthopedic injuries wound vac to be changed thursday by ortho RF being managed by nephrology Cont PT Problem Qualifiers (1) Rib fractures: Qualified Code: S22.42XA - Closed fracture of multiple ribs of left side, initial encounter (2) Laceration of lip: Qualified Code: S01.511A - Lip laceration, initial encounter (3) Avulsion of skin of lower leg: Qualified Code: S81.802A - Avulsion of skin of left lower leg, initial encounter (4) Foot fracture, right: Qualified Code: S92.901A - Closed fracture of right foot, initial encounter (5) Foot fracture, left: Qualified Code: S92.902A - Closed fracture of left foot, initial encounter (6) Closed left clavicular fracture: Qualified Code: S42.002A - Closed nondisplaced fracture of left clavicle, unspecified part of clavicle, initial encounter Jm Mireles MD Oct 24, 2016 17:04
[2016-10-24] MEDS: ONDANSETRON HCL 4 MG/2 ML VIAL IVP PRN (19:01)
[2016-10-24] MEDS: MAGNESIUM HYDROXIDE SUSP 30 ML CUP PO SCH (21:00)
[2016-10-25] VITALS (9 sets, daily range): BP systolic 119–194; BP diastolic 58–88; PULSE 70–109; RESP 16–20; TEMP 98–99.9; O2SAT 93–98
[2016-10-25] MEDS: MORPHINE SULFATE 4 MG/ML INJ IV PRN (00:15)
[2016-10-25] MEDS: ENALAPRILAT 1.25 MG/ML VIAL IV PUSH PRN (01:15)
[2016-10-25] MEDS: POLYMYXIN/TRIMETHOPRIM OPHT SOLN 10 ML BTL LEFT EYE SCH ×5 (05:06→23:49)
[2016-10-25] MEDS: MULTIVITAMINS/MINERALS THERAPEUTIC TAB PO SCH (08:54)
[2016-10-25] MEDS: FLUoxetine HCL 20 MG CAP PO SCH (08:54)
[2016-10-25] MEDS: ATORVASTATIN 10 MG TAB PO SCH (08:54)
[2016-10-25] MEDS: FERROUS SULFATE 325 MG (65 MG ELEMENTAL IRON) TAB PO SCH (08:55)
[2016-10-25] MEDS: oxyCODONE/ACETAMINOPHEN 5 MG/325 MG TAB PO PRN ×3 (08:55→21:57)
[2016-10-25] MEDS: BUMETANIDE 1 MG TAB PO SCH (08:55)
[2016-10-25] MEDS: DOCUSATE SODIUM 50 MG/SENNA 8.6 MG TAB PO SCH ×2 (08:55→21:58)
[2016-10-25] MEDS: FAMOTIDINE 20 MG TAB PO SCH ×2 (08:55→21:58)
[2016-10-25] MEDS: LACTULOSE SYRUP 20 GM/30 ML CUP PO SCH (08:55)
[2016-10-25] MEDS: SODIUM CHLORIDE 0.9% FLUSH 5 ML FLUSH IVF SCH ×2 (09:00→21:59)
[2016-10-25] MEDS: BACITRACIN TOP OINT 15 GM TUBE TOPICAL SCH ×2 (09:00→21:58)
[2016-10-25] MEDS: HEPARIN SODIUM - SQ 10,000 UNITS/ML VIAL SQ SCH ×2 (09:02→21:57)
--- NOTE | 2016-10-25 11:19 | PD.ORT.PN ---
Subjective Subjective Remarks no change. no issues. no CP/SOB Objective Vitals Vital Signs Date Time Temp Pulse Resp B/P Pulse Ox O2 Delivery O2 Flow Rate FiO2 10/25/16 08:45 98.0 92 18 177/77 98 10/25/16 04:00 98.8 90 16 171/78 98 10/25/16 02:05 92 143/67 10/25/16 01:12 94 178/83 10/25/16 00:10 Nasal Cannula 3.00 10/25/16 00:00 98.1 95 16 194/88 97 10/24/16 22:40 89 10/24/16 20:32 95 Nasal Cannula 3.00 10/24/16 20:00 98.2 89 16 172/79 95 10/24/16 12:00 99.0 100 20 142/65 94 I/O 10/24/16 10/24/16 10/24/16 10/25/16 10/25/16 10/25/16 07:00 15:00 23:00 07:00 15:00 23:00 Output Total 1000 ml 1000 ml 450 ml Balance -1000 ml -1000 ml -450 ml Output Urine Total 1000 ml 1000 ml 450 ml # Bowel Movements 1 Result Diagram: 10/24/16 1038 10/24/16 1038 Objective Remarks LLE: Dressings clean and dry. intact. +vac. good seal. vac removed at bedside. wounds visualized. healing. no drainage. skin flap viable. RLE: dressings clean and dry Assessment & Plan Assessment and Plan 1) Left Leg degloving with lateral malleolus fx s/p I&D with vac change - POD 4 2) s/p right leg degloving with I&D and wound closure - POD 7 3) Left clavicle Fracture - nonop -maintain vac at all times -will place in fracture boot for right foot fractures. Dr Monroy will be managing nonop foot fractures. -NWB LLE -Heel weight bearing with boot on to RLE -sling for left clavicle fracture and NWB -will do another vac change thursday. Randy Quick Jr., MD Oct 25, 2016 11:18
[2016-10-25] MEDS: REMOVE OLD DURAGESIC (FENTANYL) PATCH T-DERMAL SCH (12:37)
[2016-10-25] MEDS ORDERED: NIFEdipine 10 MG CAP PO ONE (13:45)
[2016-10-25] MEDS ORDERED: SODIUM CHLOR 0.9% 1000 ML INJ 1,000 ML IV SCH (13:45)
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
--- NOTE | 2016-10-25 18:43 | HHI.NPPN ---
Subjective General Problems: Edema, Hypertension Renal Failure: Acute Additional Remarks Feeling tired today Review of Systems Cardiovascular Cardiac: Edema Gastrointestinal Gastrointestinal: Diarrhea Musculoskeletal MS: Pain/Stiffness Objective Data Data 10/24/16 10/25/16 19:00 07:00 Output Total 1450 ml Balance -1450 ml Output Urine Total 1450 ml # Bowel Movements 1 Vital Signs Date Time Temp Pulse Resp B/P Pulse Ox O2 Delivery O2 Flow Rate FiO2 10/25/16 17:22 98.8 94 20 137/60 95 10/25/16 12:22 99.5 97 18 166/74 10/25/16 11:00 95 Nasal Cannula 2.50 10/25/16 11:00 95 Nasal Cannula 2.50 10/25/16 08:45 98.0 92 18 177/77 98 10/25/16 04:00 98.8 90 16 171/78 98 10/25/16 02:05 92 143/67 10/25/16 01:12 94 178/83 10/25/16 00:10 Nasal Cannula 3.00 10/25/16 00:00 98.1 95 16 194/88 97 10/24/16 22:40 89 10/24/16 20:32 95 Nasal Cannula 3.00 10/24/16 20:00 98.2 89 16 172/79 95 -: 10/24/16 1038 10/24/16 1038 Tubes & Lines: Randolph Physical Exam General Appearance: Well Developed, No Acute Distress, Comfortable Throat Throat Exam: Oral Mucosa [place] & Moist Pulmonary Resp Exam: No Distress, Crackles Cardiology CV Exam: Regular, Normal Sinus Rhythm Gastrointestinal/Abdomen GI Exam: Soft, Non-Tender, Bowel Sounds Present Musculoskeletal MS Exam: Joints Intact, Unable to Ambulate Integumentary Skin Exam: Warm, Dry, Intact Extremeties Extremities Exam: Pedal Pulses Palpable, Moderate Edema Neurologic Neuro Exam: Alert, Awake, Oriented, Speech Clear, Moving All Extremities Psychiatric Psych Exam: Appropriate Responses Assessment/Plan Discussed Condition With: Patient, Spouse Assessment Summary: CAR/Acute Renal Failure, Fluid/Volume Overload, Proteinuria , Hypertension Problem List: (1) Acute renal failure Plan: may have underlying CKD, no baseline labs for comparison renal function has been improving Continue PO bumex 1mg qd. no acute electrolyte concerns monitor urine output , remove randolph when able avoid nephrotoxic medications, renally dose medications when appropriate daily renal panel (2) Trauma Plan: s/p surgery defer to trauma team, continue pain control, wound care (3) Anemia Plan: slight iron deficiency on oral iron Sukhdev Hart MD Oct 25, 2016 18:43
[2016-10-25] MEDS: MAGNESIUM HYDROXIDE SUSP 30 ML CUP PO SCH (21:58)
[2016-10-25] MEDS: METOPROLOL TARTRATE 25 MG TAB PO SCH (21:58)
[2016-10-25] MEDS ORDERED: NIFEdipine 10 MG CAP PO SCH (22:00)
[2016-10-26 00:30] VITALS: BP 124/60; PULSE 83; PULSE 99; RESP 17; TEMP 98.7; O2SAT 93
[2016-10-26 04:30] VITALS: BP 152/65; PULSE 83; RESP 17; TEMP 98.5; O2SAT 93
[2016-10-26] MEDS: POLYMYXIN/TRIMETHOPRIM OPHT SOLN 10 ML BTL LEFT EYE SCH ×3 (05:23→18:03)
[2016-10-26 08:00] VITALS: BP 142/65; PULSE 74; RESP 18; TEMP 98.9; O2SAT 91
[2016-10-26] MEDS: BACITRACIN TOP OINT 15 GM TUBE TOPICAL SCH ×2 (08:41→21:29)
[2016-10-26] MEDS: FLUoxetine HCL 20 MG CAP PO SCH (08:41)
[2016-10-26] MEDS: FERROUS SULFATE 325 MG (65 MG ELEMENTAL IRON) TAB PO SCH (08:41)
[2016-10-26] MEDS: BUMETANIDE 1 MG TAB PO SCH (08:41)
[2016-10-26] MEDS: LACTULOSE SYRUP 20 GM/30 ML CUP PO SCH (08:41)
[2016-10-26] MEDS: METOPROLOL TARTRATE 25 MG TAB PO SCH ×2 (08:41→21:28)
[2016-10-26] MEDS: HEPARIN SODIUM - SQ 10,000 UNITS/ML VIAL SQ SCH ×2 (08:41→21:28)
[2016-10-26] MEDS: DOCUSATE SODIUM 50 MG/SENNA 8.6 MG TAB PO SCH ×2 (08:41→21:28)
[2016-10-26] MEDS: SODIUM CHLORIDE 0.9% FLUSH 5 ML FLUSH IVF SCH ×2 (08:41→21:29)
[2016-10-26] MEDS: MULTIVITAMINS/MINERALS THERAPEUTIC TAB PO SCH (08:41)
[2016-10-26] MEDS: FAMOTIDINE 20 MG TAB PO SCH ×2 (08:41→21:28)
[2016-10-26] MEDS: ATORVASTATIN 10 MG TAB PO SCH (08:41)
[2016-10-26 10:47] LABS: AUTOMATED NEUTROPHIL # 12.1 TH/MM3 (1.8-7.7); BASOPHIL # 0.1 TH/MM3 (0-0.2); BASOPHIL % 0.4 % (0.0-2.0); EOSINOPHIL # 0.2 TH/MM3 (0-0.4); EOSINOPHIL % 1.5 % (0.0-4.0); HEMATOCRIT 26.1 % (35.0-46.0); HEMO FLAGS DIFF FINAL; LYMPHOCYTE # 1.2 TH/MM3 (1.0-4.8); MEAN CELL VOLUME 87.5 FL (80.0-100.0); MEAN CORPUSCULAR HEMOGLOBIN 29.3 PG (27.0-34.0); MEAN CORPUSCULAR HGB CONC 33.5 % (32.0-36.0); MONO % 9.2 % (0.0-8.0); NEUT % 80.9 % (16.0-70.0); PLATELET COUNT 364 TH/MM3 (150-450); RED BLOOD COUNT 2.98 MIL/MM3 (4.00-5.30); RED CELL DISTRIBUTION WIDTH 13.7 % (11.6-17.2)
[2016-10-26 10:55] LABS: BICARBONATE 25.3 MEQ/L (21.0-32.0); POTASSIUM 3.7 MEQ/L (3.5-5.1)
[2016-10-26] MEDS: oxyCODONE/ACETAMINOPHEN 5 MG/325 MG TAB PO PRN ×2 (11:15→21:29)
--- NOTE | 2016-10-26 13:06 | RADRPT ---
EXAM DATE/TIME: 10/26/2016 12:23 [facility] COMPARISON: CHEST SINGLE AP, October 22, 2016, 5:59. INDICATIONS : Cough. MEDICAL HISTORY : Gastroesophageal reflux disease. Hypercholesterolemia. Hypertension. Anemia. SURGICAL HISTORY : wound debridement ENCOUNTER: Subsequent ACUITY: 3 days PAIN SCORE: 6/10 LOCATION: Bilateral upper chest FINDINGS: A single view of the chest demonstrates left basilar density. Cardiomegaly. The cardiomediastinal con tours are unremarkable. Osseous structures are intact. Hiatal hernia again seen. CONCLUSION: Persistent left basilar airspace disease. Lakhwinder Scott MD on October 26, 2016 at 13:03 Board Certified Radiologist. This report was verified electronically.
[2016-10-26 15:19] VITALS: PULSE 75
[2016-10-26 16:38] VITALS: BP 133/62; PULSE 80; RESP 20; TEMP 99.1; O2SAT 91
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
[2016-10-26] MEDS: LACTOBACILLUS ACIDOPHILUS TAB PO SCH (18:02)
[2016-10-26] MEDS: cefTRIAXone INJ 1,000 MG in SODIUM CHLORIDE 0.9% INJ 100 ML IV SCH (18:02)
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
[2016-10-26 20:00] VITALS: BP 141/64; PULSE 90; RESP 16; TEMP 99.8; O2SAT 93
[2016-10-26] MEDS: MAGNESIUM HYDROXIDE SUSP 30 ML CUP PO SCH (21:27)
[2016-10-26 22:29] LABS: BACTERIA, URINE OCC /hpf; BLOOD, URINE SMALL (NEG); GLUCOSE,URINE NEG (NEG); KETONE, URINE 10 mg/dL (NEG); MUCUS URINE FEW /lpf (OCC); NITRITE,URINE NEG (NEG); PH, URINE 5.5 (5.0-8.5); SQUAMOUS EPITHELIAL CELL URINE <1 /hpf (0-5); URINE COLOR YELLOW (YELLW/STRAW)
[2016-10-26 22:30] LABS: COMMENT (UR) CATH-CULTURE IND; CULTURE IF INDICATED CATH CULTURE IND
[2016-10-27] VITALS (7 sets, daily range): BP systolic 125–161; BP diastolic 58–86; PULSE 73–91; RESP 16–18; TEMP 98.6–99.1; O2SAT 94–96
[2016-10-27] MEDS: POLYMYXIN/TRIMETHOPRIM OPHT SOLN 10 ML BTL LEFT EYE SCH ×4 (05:21→17:23)
--- NOTE | 2016-10-27 07:14 | PD.ORT.PN ---
Subjective Subjective Remarks POD 6 s/p I&D left leg vac change day 3 s/p left lateral mal fx s/p multiple wounds right leg s/p right foot fractures s/p left clavicle fracture doing well. no complaints. no changes. nurse reports patient has been slightly confused. Objective Vitals Vital Signs Date Time Temp Pulse Resp B/P (MAP) Pulse Ox O2 Delivery O2 Flow Rate FiO2 10/27/16 04:30 98.6 76 16 145/69 (94) 95 10/27/16 02:15 90 10/27/16 00:47 98.9 73 16 125/58 (80) 95 10/26/16 20:00 99.8 90 16 141/64 (89) 93 10/26/16 19:04 Room Air 10/26/16 16:38 99.1 80 20 133/62 (85) 91 10/26/16 15:19 75 10/26/16 14:16 Room Air 10/26/16 08:00 98.9 74 18 142/65 (90) 91 I/O 10/26/16 10/26/16 10/26/16 10/27/16 10/27/16 10/27/16 07:00 15:00 23:00 07:00 15:00 23:00 Intake Total 120 ml 340 ml 240 ml Output Total 250 ml 725 ml 650 ml Balance -130 ml -385 ml -410 ml Intake Oral 120 ml 240 ml 240 ml IV Total 100 ml Output Urine Total 250 ml 725 ml 650 ml Result Diagram: 10/26/16 0750 10/26/16 0750 Objective Remarks LLE: Dressings clean and dry. intact. +vac. good seal. RLE: dressings clean and dry. +fracture boot LUE: no sling present. nvi. pain with movement Assessment & Plan Assessment and Plan 1) Left Leg degloving with lateral malleolus fx s/p I&D with vac change - POD 6 / s/p vac change at bedside POD 3 2) s/p right leg degloving with I&D and wound closure - POD 8 3) Left clavicle Fracture - nonop -maintain vac at all times -will place in fracture boot for right foot fractures. Dr Monroy will be managing nonop foot fractures. -NWB LLE -Heel weight bearing with boot on to RLE -sling for left clavicle fracture and NWB -plan for OR tomorrow for I&D and possible wound closure left ankle -sign consents -npo after MN Kana Walter Oct 27, 2016 07:14
[2016-10-27] MEDS: HEPARIN SODIUM - SQ 10,000 UNITS/ML VIAL SQ SCH ×3 (07:41→21:41)
[2016-10-27] MEDS: MULTIVITAMINS/MINERALS THERAPEUTIC TAB PO SCH (08:08)
[2016-10-27] MEDS: LACTOBACILLUS ACIDOPHILUS TAB PO SCH ×3 (08:08→17:23)
[2016-10-27] MEDS: LACTULOSE SYRUP 20 GM/30 ML CUP PO SCH (08:08)
[2016-10-27] MEDS: METOPROLOL TARTRATE 25 MG TAB PO SCH ×2 (08:09→21:41)
[2016-10-27] MEDS: ATORVASTATIN 10 MG TAB PO SCH (08:10)
[2016-10-27] MEDS: FLUoxetine HCL 20 MG CAP PO SCH (08:10)
[2016-10-27] MEDS: FAMOTIDINE 20 MG TAB PO SCH ×2 (08:11→21:41)
[2016-10-27] MEDS: SODIUM CHLORIDE 0.9% FLUSH 5 ML FLUSH IVF SCH ×2 (08:11→21:00)
[2016-10-27] MEDS: FERROUS SULFATE 325 MG (65 MG ELEMENTAL IRON) TAB PO SCH (08:11)
[2016-10-27] MEDS: BUMETANIDE 1 MG TAB PO SCH (08:11)
[2016-10-27] MEDS: DOCUSATE SODIUM 50 MG/SENNA 8.6 MG TAB PO SCH ×2 (08:11→21:41)
[2016-10-27] MEDS: BACITRACIN TOP OINT 15 GM TUBE TOPICAL SCH ×2 (08:12→21:41)
[2016-10-27 08:42] LABS: MAGNESIUM 2.3 MG/DL (1.5-2.5); POTASSIUM 3.5 MEQ/L (3.5-5.1)
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
[2016-10-27 12:03] LABS: AUTOMATED NEUTROPHIL # 11.2 TH/MM3 (1.8-7.7); BASOPHIL % 0.2 % (0.0-2.0); EOSINOPHIL # 0.1 TH/MM3 (0-0.4); EOSINOPHIL % 0.7 % (0.0-4.0); HEMATOCRIT 28.6 % (35.0-46.0); HEMO FLAGS DIFF FINAL; LYMPH % 8.6 % (9.0-44.0); LYMPHOCYTE # 1.2 TH/MM3 (1.0-4.8); MEAN CELL VOLUME 86.6 FL (80.0-100.0); MEAN CORPUSCULAR HEMOGLOBIN 29.1 PG (27.0-34.0); MEAN CORPUSCULAR HGB CONC 33.6 % (32.0-36.0); NEUT % 82.5 % (16.0-70.0); PLATELET COUNT 531 TH/MM3 (150-450); RED BLOOD COUNT 3.31 MIL/MM3 (4.00-5.30); RED CELL DISTRIBUTION WIDTH 13.6 % (11.6-17.2); WHITE BLOOD COUNT 13.6 TH/MM3 (4.0-11.0)
--- NOTE | 2016-10-27 12:50 | HHI.NPPN ---
Subjective General Problems: Edema, Hypertension Renal Failure: Acute Interval History Renal function is stable. She does have a course cough. (Cristina Felipe) Review of Systems Cardiovascular Cardiac: Edema Cardiac Remarks edema improved (Cristina Felipe) Gastrointestinal Gastrointestinal: Diarrhea (Cristina Felipe) Musculoskeletal MS: Pain/Stiffness (Cristina Felipe) Objective Data Data 10/27/16 10/28/16 18:59 06:59 Output Total 825 ml Balance -825 ml Output Urine Total 825 ml Vital Signs Date Time Temp Pulse Resp B/P (MAP) Pulse Ox O2 Delivery O2 Flow Rate FiO2 10/27/16 12:36 99.1 77 16 161/67 (98) 96 10/27/16 10:02 98.6 83 16 158/70 (99) 94 10/27/16 04:30 98.6 76 16 145/69 (94) 95 10/27/16 02:15 90 10/27/16 00:47 98.9 73 16 125/58 (80) 95 10/26/16 20:00 99.8 90 16 141/64 (89) 93 10/26/16 19:04 Room Air 10/26/16 16:38 99.1 80 20 133/62 (85) 91 10/26/16 15:19 75 10/26/16 14:16 Room Air (Cristina Felipe) -: 10/27/16 1136 10/27/16 0755 Microbiology 10/26/16 Urine Culture, Received Pending Imaging Last Impressions Chest X-Ray 10/22/16 0600 Signed Impressions: Service Date/Time: Saturday, October 22, 2016 05:59 - CONCLUSION: Lungs remain grossly clear except for minimal left basilar atelectasis. Suspected large hiatal hernia. No interval change. Juan C Carrion MD Ankle X-Ray 10/21/16 0000 Signed Impressions: Service Date/Time: Friday, October 21, 2016 13:07 - CONCLUSION: Distal fibula fracture. Kenneth Zambrano MD Renal Ultrasound 10/20/16 0000 Signed Impressions: Service Date/Time: Thursday, October 20, 2016 13:41 - CONCLUSION: 1. Both kidneys demonstrate mild increased echotexture characteristic of medical renal disease. There is no hydronephrosis. 2. Simple benign-appearing 13 mm right renal cyst. Kenneth Arredondo MD Knee X-Ray 10/20/16 0000 Signed Impressions: Service Date/Time: Thursday, October 20, 2016 08:39 - CONCLUSION: 1. The exam demonstrates advanced tricompartmental osteoarthritis. 2. There is a large, high density effusion in the suprapatella bursa. I do not see a definite fracture however, with a high density effusion occult fracture and hemorrhage cannot be excluded. CT imaging of the knee could be performed for more definitive assessment if it is felt clinically warranted. Sukhdev So MD Foot X-Ray 10/20/16 0000 Signed Impressions: Service Date/Time: Thursday, October 20, 2016 20:20 - CONCLUSION: Non-to minimally displaced multifocal fracturing of the right foot including intra-articular fractures of the great toe distal phalanx and fourth toe proximal phalanx and neck fractures of the second and third metatarsals. Alignment is unchanged, near anatomic. No subluxations. No new fracture. Kenneth Macario MD Carotid Artery Ultrasound 10/20/16 0000 Signed Impressions: Service Date/Time: Thursday, October 20, 2016 15:34 - CONCLUSION: 1. There is mild atherosclerotic plaquing in the bifurcations bilaterally. 2. There is no hemodynamically significant carotid artery stenosis identified. Sukhdev So MD Pelvis X-Ray 10/19/16 1303 Signed Impressions: Service Date/Time: Wednesday, October 19, 2016 12:47 - CONCLUSION: No acute disease. Chad Wilkes MD Maxillofacial CT 10/19/16 1303 Signed Impressions: Service Date/Time: Wednesday, October 19, 2016 13:10 - CONCLUSION: Soft tissue swelling. No evidence of acute fracture or paranasal sinus disease. Intact temporal mandibular joints. Chad Wilkes MD Head CT 10/19/16 130 Signed Impressions: Service Date/Time: Wednesday, October 19, 2016 13:09 - CONCLUSION: Aging brain with chronic ischemic white matter changes. No evidence of acute infarct, hemorrhage, mass or edema. No extra-axial fluid collections. Intact skull Chad Wilkes MD Chest CT 10/19/16 1303 Signed Impressions: Service Date/Time: Wednesday, October 19, 2016 13:19 - CONCLUSION: 1. Left clavicle and left rib fractures with mild contusion along the lateral margin the left upper lobe. 2. Otherwise clear lungs 3. 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 4. Intact mediastinal structures. Chad Wilkes MD Cervical Spine CT 10/19/16 1303 Signed Impressions: Service Date/Time: Wednesday, October 19, 2016 13:10 - CONCLUSION: 1. No evidence of acute fracture or traumatic listhesis. 2. Advanced right-sided facet arthropathy. 3. Moderate degenerative disc disease. 4. No acute soft tissue abnormality. Chad Wilkes MD Abdomen/Pelvis CT 10/19/16 1303 Signed Impressions: Service Date/Time: Wednesday, October 19, 2016 13:19 - CONCLUSION: 1. 2.2 cm hepatic cyst. 2. Large paraesophageal diaphragmatic hernia containing stomach, left. 3. No evidence of soft tissue or bony traumatic injury. Chad Wilkes MD Tibia/Fibula X-Ray 10/19/16 0000 Signed Impressions: Service Date/Time: Wednesday, October 19, 2016 12:47 - CONCLUSION: Ankle fracture and foot fracture. Recommend complete 3 view ankle films and foot films Kenneth Ignacio MD Shoulder X-Ray 10/19/16 0000 Signed Impressions: Service Date/Time: Wednesday, October 19, 2016 00:00 - CONCLUSION: 1. Intact glenohumeral joint 2. Fractured left clavicle 3. Left rib fractures. Chad Wilkes MD Femur X-Ray 10/19/16 0000 Signed Impressions: Service Date/Time: Wednesday, October 19, 2016 12:47 - CONCLUSION: Unremarkable examination of the left femur. Kenneth Ignacio MD Tubes & Lines: Randolph (Cristina Felipe) Physical Exam General Appearance: Well Developed, No Acute Distress, Comfortable Appearance Remarks multiple facial abrasion. (Cristina Felipe B. MACHINE OPERATIONS SUPERVISOR) Throat Throat Exam: Oral Mucosa [place] & Moist (Cristina Felipe MACHINE OPERATIONS SUPERVISOR) Pulmonary Resp Exam: Breath Sounds Equal, No Distress, Crackles, Rhonchi, Sputum (Cristina Felipe MACHINE OPERATIONS SUPERVISOR) Cardiology CV Exam: Regular, Normal Sinus Rhythm (Cristina Felipe) Gastrointestinal/Abdomen GI Exam: Soft, Non-Tender, Bowel Sounds Present (Cristina Felipe) Musculoskeletal MS Exam: Joints Intact, Unable to Ambulate MS Remarks both lower extremities are wrapped, wound vac on left (Cristina Felipe) Integumentary Skin Exam: Warm, Dry, Intact (Cristina Felipe) Extremeties Extremities Exam: Pedal Pulses Palpable, Moderate Edema (Cristina Felipe) Neurologic Neuro Exam: Alert, Awake, Oriented, Speech Clear, Moving All Extremities (Cristina Felipe) Psychiatric Psych Exam: Appropriate Responses (Cristina Felipe) Assessment/Plan Discussed Condition With: Patient, Spouse Assessment Summary: CAR/Acute Renal Failure, Fluid/Volume Overload, Proteinuria , Hypertension Problem List: (1) Acute renal failure ICD Codes: N17.9 - Acute kidney failure, unspecified Status: Acute Plan: may have underlying CKD, no baseline labs for comparison renal function has been improving continue bumex once daily po intake encouraged no acute electrolyte concerns monitor urine output , remove randolph when able avoid nephrotoxic medications, renally dose medications when appropriate daily renal panel (2) Trauma ICD Codes: T14.90 - Injury, unspecified Status: Acute Plan: s/p surgery defer to trauma team, continue pain control, wound care she may need additional surgeries (3) Anemia ICD Codes: D64.9 - Anemia, unspecified Status: Acute Plan: slight iron deficiency on oral iron (Cristina Felipe) Plan patient was seen and examined. Agree with above assessment and plan. (Jose Luis Blackburn MD) Cristina Felipe Oct 27, 2016 12:50 Jose Luis Blackburn MD Oct 28, 2016 11:23
--- NOTE | 2016-10-27 13:58 | HHI.PR ---
Subjective Subjective Notes Complains that everything hurts Reports her appetite is the same as it is when she is at home Objective Vitals/I&O Vital Signs Date Time Temp Pulse Resp B/P (MAP) Pulse Ox O2 Delivery O2 Flow Rate FiO2 10/27/16 12:36 99.1 77 16 161/67 (98) 96 10/26/16 19:04 Room Air 10/26/16 00:03 2.50 Labs Laboratory Tests Test 10/26/16 21:50 10/27/16 07:55 10/27/16 11:36 Urine Color YELLOW Urine Turbidity CLEAR Urine pH 5.5 Urine Specific Dinosaur 1.015 Urine Protein 30 Urine Glucose (UA) NEG Urine Ketones 10 Urine Occult Blood SMALL Urine Nitrite NEG Urine Bilirubin NEG Urine Urobilinogen LESS THAN 2.0 Urine Leukocyte Esterase NEG Urine RBC 2 Urine WBC 3 Urine Squamous Epithelial Cells <1 Urine Amorphous Sediment RARE Urine Bacteria OCC Urine Mucus FEW Microscopic Urinalysis Comment CATH-CULTURE IND Blood Urea Nitrogen 59 Creatinine 1.60 Random Glucose 70 Calcium Level 8.4 Magnesium Level 2.3 Sodium Level 134 Potassium Level 3.5 Chloride Level 102 Carbon Dioxide Level 18.0 Anion Gap 14 Estimat Glomerular Filtration Rate 31 White Blood Count 13.6 Red Blood Count 3.31 Hemoglobin 9.6 Hematocrit 28.6 Mean Corpuscular Volume 86.6 Mean Corpuscular Hemoglobin 29.1 Mean Corpuscular Hemoglobin Concent 33.6 Red Cell Distribution Width 13.6 Platelet Count 531 Mean Platelet Volume 7.3 Neutrophils (%) (Auto) 82.5 Lymphocytes (%) (Auto) 8.6 Monocytes (%) (Auto) 8.0 Eosinophils (%) (Auto) 0.7 Basophils (%) (Auto) 0.2 Neutrophils # (Auto) 11.2 Lymphocytes # (Auto) 1.2 Monocytes # (Auto) 1.1 Eosinophils # (Auto) 0.1 Basophils # (Auto) 0.0 CBC Comment DIFF FINAL Differential Comment Date/Time Source Procedure Growth Status 10/26/16 21:50 Urine Catheterized Urine Urine Culture Pending Received Radiology Last Impressions Chest X-Ray 10/21/16 0600 Signed Impressions: Service Date/Time: Friday, October 21, 2016 06:09 - CONCLUSION: 1. Left basilar atelectasis. 2. Multiple left-sided rib fractures without pneumothorax. 3. Minimal lucency medially adjacent to the left heart border is likely from hiatal hernia versus less likely pneumothorax. Lakhwinder Soctt MD Renal Ultrasound 10/20/16 0000 Signed Impressions: Service Date/Time: Thursday, October 20, 2016 13:41 - CONCLUSION: 1. Both kidneys demonstrate mild increased echotexture characteristic of medical renal disease. There is no hydronephrosis. 2. Simple benign-appearing 13 mm right renal cyst. Kenneth Arredondo MD Knee X-Ray 10/20/16 0000 Signed Impressions: Service Date/Time: Thursday, October 20, 2016 08:39 - CONCLUSION: 1. The exam demonstrates advanced tricompartmental osteoarthritis. 2. There is a large, high density effusion in the suprapatella bursa. I do not see a definite fracture however, with a high density effusion occult fracture and hemorrhage cannot be excluded. CT imaging of the knee could be performed for more definitive assessment if it is felt clinically warranted. Sukhdev So MD Foot X-Ray 10/20/16 0000 Signed Impressions: Service Date/Time: Thursday, October 20, 2016 20:20 - CONCLUSION: Non-to minimally displaced multifocal fracturing of the right foot including intra-articular fractures of the great toe distal phalanx and fourth toe proximal phalanx and neck fractures of the second and third metatarsals. Alignment is unchanged, near anatomic. No subluxations. No new fracture. Kenneth Macario MD Carotid Artery Ultrasound 10/20/16 0000 Signed Impressions: Service Date/Time: Thursday, October 20, 2016 15:34 - CONCLUSION: 1. There is mild atherosclerotic plaquing in the bifurcations bilaterally. 2. There is no hemodynamically significant carotid artery stenosis identified. Sukhdev So MD Ankle X-Ray 10/20/16 0000 Signed Impressions: Service Date/Time: Thursday, October 20, 2016 08:45 - CONCLUSION: 1. Moderately displaced distal fibular fracture. 2. Fracture of the fifth metatarsal. Sukhdev So MD Pelvis X-Ray 10/19/16 1303 Signed Impressions: Service Date/Time: Wednesday, October 19, 2016 12:47 - CONCLUSION: No acute disease. Chad Wilkes MD Maxillofacial CT 10/19/16 1303 Signed Impressions: Service Date/Time: Wednesday, October 19, 2016 13:10 - CONCLUSION: Soft tissue swelling. No evidence of acute fracture or paranasal sinus disease. Intact temporal mandibular joints. Chad Wilkes MD Head CT 10/19/16 1303 Signed Impressions: Service Date/Time: Wednesday, October 19, 2016 13:09 - CONCLUSION: Aging brain with chronic ischemic white matter changes. No evidence of acute infarct, hemorrhage, mass or edema. No extra-axial fluid collections. Intact skull Chad Wilkes MD Chest CT 10/19/16 1303 Signed Impressions: Service Date/Time: Wednesday, October 19, 2016 13:19 - CONCLUSION: 1. Left clavicle and left rib fractures with mild contusion along the lateral margin the left upper lobe. 2. Otherwise clear lungs 3. 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 4. Intact mediastinal structures. Chad Wilkes MD Cervical Spine CT 10/19/16 1303 Signed Impressions: Service Date/Time: Wednesday, October 19, 2016 13:10 - CONCLUSION: 1. No evidence of acute fracture or traumatic listhesis. 2. Advanced right-sided facet arthropathy. 3. Moderate degenerative disc disease. 4. No acute soft tissue abnormality. Chad Wilkes MD Abdomen/Pelvis CT 10/19/16 1303 Signed Impressions: Service Date/Time: Wednesday, October 19, 2016 13:19 - CONCLUSION: 1. 2.2 cm hepatic cyst. 2. Large paraesophageal diaphragmatic hernia containing stomach, left. 3. No evidence of soft tissue or bony traumatic injury. Chad Wilkes MD Tibia/Fibula X-Ray 10/19/16 0000 Signed Impressions: Service Date/Time: Wednesday, October 19, 2016 12:47 - CONCLUSION: Ankle fracture and foot fracture. Recommend complete 3 view ankle films and foot films Kenneth Ignacio MD Shoulder X-Ray 10/19/16 0000 Signed Impressions: Service Date/Time: Wednesday, October 19, 2016 00:00 - CONCLUSION: 1. Intact glenohumeral joint 2. Fractured left clavicle 3. Left rib fractures. Chad Wilkes MD Femur X-Ray 10/19/16 0000 Signed Impressions: Service Date/Time: Wednesday, October 19, 2016 12:47 - CONCLUSION: Unremarkable examination of the left femur. Kenneth Ignacio MD Narrative Exam GENERAL: 81 year old well-nourished, well developed female lying in bed in no distress. SKIN: Warm and dry. LEFT chin ecchymosis and facial abrasions noted. HEAD: Normocephalic. EYES: PERRL. ENT: No nasal bleeding or discharge. Mucous membranes pink and moist. NECK: Trachea midline. No JVD. CARDIOVASCULAR: Regular rate and rhythm. RESPIRATORY: No accessory muscle use. Lungs clear to auscultation. Breath sounds equal bilaterally. GASTROINTESTINAL: Abdomen soft, non-tender, nondistended. + BS. MUSCULOSKELETAL: Extremities without cyanosis, or edema. LLE soft splint with wound vac in place. RLE racquel wrap and fracture boot. MAEW. NEUROLOGICAL: Awake and alert. Normal speech. A/P Problem List: (1) Rib fractures ICD Codes: S22.39XA - Fracture of one rib, unspecified side, initial encounter for closed fracture Status: Acute (2) Laceration of lip ICD Codes: S01.511A - Laceration without foreign body of lip, initial encounter Status: Acute (3) Avulsion of skin of lower leg ICD Codes: S81.809A - Avulsion of skin of lower leg Status: Acute (4) Foot fracture, right ICD Codes: S92.901A - Unspecified fracture of right foot, initial encounter for closed fracture Status: Acute (5) Foot fracture, left ICD Codes: S92.902A - Unspecified fracture of left foot, initial encounter for closed fracture Status: Acute (6) Closed left clavicular fracture ICD Codes: S42.002A - Fracture of unspecified part of left clavicle, initial encounter for closed fracture Status: Acute Assessment and Plan INJURIES: LEFT lip laceration LEFT front incisor fx LEFT clavicle fx (non-op) LEFT rib fx (4-7) Pulmonary contusions LEFT lower leg degloving injury LEFT distal tibia fx RIGHT lower leg degloving injury RIGHT great, 2nd, 3rd, and 4th phalanx fxs (non-op) LEFT 5th phalanx fx (non-op) 10/19: Bilateral lower extremity I&D w/ wound vac to LEFT. LEFT ankle and LEFT patellar arthrotomy. Repair of tendons 10/21: I&D LEFT patella and knee. I&D LEFT fibula, talus and ankle. Complex closure of 20cm laceration. LEFT wound vac application Diet: ADA Pulm: IS, acapella, EZ-pap. Pain: Percocet. Morphine IV. Tylenol IV. Activity: OOB to stretcher chair. PT and OT ordered (NWB LLE, NWB LUE, Heel weight bearing with boot on to RLE) GI: Pepcid BID. Bowel: Colace BID. MOM. Lactulose. LBM: 10/24 DVT: SCD's. Heparin 5000 BID LEFT rib fxs, Pulmonary contusions Supportive care Pain control Pulmonary toileting OOB-PT RIGHT great, 2nd, 3rd, and 4th phalanx fxs, LEFT 5th phalanx fx, LEFT clavicle fx Orthopedics consulted Nonoperative management Pain control NWB LUE, Heel weight bearing with boot on to RLE Maintain sling to LUE BILATERAL lower leg degloving injury, LEFT distal tibia fx Orthopedics consulted 10/19: Bilateral lower extremity I&D w/ wound vac to LEFT. LEFT ankle and LEFT patellar arthrotomy. Repair of tendons 10/21: I&D LEFT patella and knee. I&D LEFT fibula, talus and ankle. Complex closure of 20cm laceration. LEFT wound vac application. Wound vac changes as ordered by Ortho Maintain sling to LUE OOB- PT/OT IV abx: Ancef. Rocephin NWB LLE, NWB LUE, Heel weight bearing with boot on to RLE OR tomorrow for left leg with Ortho Hypertension HEPAS consulted for medical management Norvasc Metoprolol Clonidine ARF Nephrology following Bumex 1 mg daily Avoid nephrotoxic agents Monitor creatinine Plan of care discussed with patient at bedside. No family at bedside. Case management consult to assist with discharge planning. Patient will likely need inpatient rehabilitation placement. Attending Statement patient seen at bedside will need rehab continue pain control Attestation The exam, history, and the medical decision-making described in the above note were completed with the assistance of the mid-level provider. I reviewed and agree with the findings presented. I attest that I had a [id number] encounter with the patient on the same day, and personally performed and documented my assessment and findings in the medical record. Problem Qualifiers (1) Rib fractures: (2) Laceration of lip: (3) Avulsion of skin of lower leg: (4) Foot fracture, right: (5) Foot fracture, left: (6) Closed left clavicular fracture: Felix Glover Oct 27, 2016 13:58 Abimael Chung MD Nov 03, 2016 22:03
[2016-10-27] MEDS: cefTRIAXone INJ 1,000 MG in SODIUM CHLORIDE 0.9% INJ 100 ML IV SCH (17:23)
[2016-10-27] MEDS ORDERED: SODIUM CHLORID 0.9% 500 ML IV PRN (19:00)
[2016-10-27] MEDS ORDERED: METOPROLOL TARTRATE 25 MG TAB PO PRN (19:00)
[2016-10-27] MEDS ORDERED: CHLORHEXIDINE GLUCONATE 2 % 1 PACK (2 CLOTHS) TOPICAL PRN (19:00)
[2016-10-27] MEDS ORDERED: LACTATED RINGER'S 1000 ML IV PRN (19:00)
[2016-10-27] MEDS ORDERED: POVIDONE IODINE 5% (ANTISEPSIS KIT) 4 APPLICATIONS EACH NARE PRN (19:00)
[2016-10-27] MEDS ORDERED: INSULIN HUMAN REGULAR 1,000 UNITS/10 ML VIAL SQ PRN (19:00)
[2016-10-27] MEDS: MAGNESIUM HYDROXIDE SUSP 30 ML CUP PO SCH (21:40)
[2016-10-28] VITALS: BP 154/68; PULSE 73; RESP 18; TEMP 99.2; O2SAT 95
[2016-10-28 04:00] VITALS: BP 159/70; PULSE 88; RESP 18; TEMP 98.3; O2SAT 92
[2016-10-28] MEDS: POLYMYXIN/TRIMETHOPRIM OPHT SOLN 10 ML BTL LEFT EYE SCH ×4 (05:52→17:10)
[2016-10-28 05:57] LABS: BICARBONATE 24.1 MEQ/L (21.0-32.0); POTASSIUM 3.3 MEQ/L (3.5-5.1)
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
[2016-10-28] MEDS: HEPARIN SODIUM - SQ 10,000 UNITS/ML VIAL SQ SCH ×3 (07:16→21:03)
[2016-10-28 08:00] VITALS: BP 145/66; PULSE 88; RESP 16; TEMP 98.7; O2SAT 96
[2016-10-28] MEDS: DOCUSATE SODIUM 50 MG/SENNA 8.6 MG TAB PO SCH ×2 (08:36→20:51)
[2016-10-28] MEDS: FLUoxetine HCL 20 MG CAP PO SCH (08:36)
[2016-10-28] MEDS: FAMOTIDINE 20 MG TAB PO SCH ×2 (08:37→20:51)
[2016-10-28] MEDS: MULTIVITAMINS/MINERALS THERAPEUTIC TAB PO SCH (08:38)
[2016-10-28] MEDS: ATORVASTATIN 10 MG TAB PO SCH (08:38)
[2016-10-28] MEDS: FERROUS SULFATE 325 MG (65 MG ELEMENTAL IRON) TAB PO SCH (08:38)
[2016-10-28] MEDS: LACTOBACILLUS ACIDOPHILUS TAB PO SCH ×3 (08:38→17:10)
[2016-10-28] MEDS: SODIUM CHLORIDE 0.9% FLUSH 5 ML FLUSH IVF SCH ×2 (08:39→20:51)
[2016-10-28] MEDS: METOPROLOL TARTRATE 25 MG TAB PO SCH ×2 (08:39→20:51)
[2016-10-28] MEDS: BUMETANIDE 1 MG TAB PO SCH (08:39)
[2016-10-28] MEDS: LACTULOSE SYRUP 20 GM/30 ML CUP PO SCH (08:39)
[2016-10-28] MEDS: BACITRACIN TOP OINT 15 GM TUBE TOPICAL SCH ×2 (08:40→20:51)
[2016-10-28] MEDS ORDERED: POTASSIUM CHLORIDE 10 MEQ CONTROLLED RELEASE TAB PO ONE (08:45)
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
[2016-10-28 12:00] VITALS: BP 134/64; PULSE 73; RESP 16; TEMP 98.9; O2SAT 98
[2016-10-28] MEDS ORDERED: fentaNYL CITRATE 250 MCG/5 ML AMP IV ONE (12:00)
[2016-10-28] MEDS ORDERED: ePHEDrine/NS 25 MG/5 ML SYR IV ONE (12:00)
[2016-10-28] MEDS ORDERED: LACTATED RINGER'S 1000 ML INJ 1,000 ML IV ONE (12:00)
[2016-10-28] MEDS ORDERED: PROPOFOL 200 MG/20 ML AMP IV ONE (12:00)
[2016-10-28] MEDS ORDERED: ONDANSETRON HCL 4 MG/2 ML VIAL IV PUSH ONE (12:00)
[2016-10-28] MEDS: REMOVE OLD DURAGESIC (FENTANYL) PATCH T-DERMAL SCH (12:33)
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
--- NOTE | 2016-10-28 12:53 | HHI.PR ---
Subjective Subjective Notes OR today with Ortho for LEFT leg I&D and wound closure OOB in wheelchair, complains of leg pain but not taking pain medications Objective Vitals/I&O Vital Signs Date Time Temp Pulse Resp B/P (MAP) Pulse Ox O2 Delivery O2 Flow Rate FiO2 10/28/16 12:00 98.9 73 16 134/64 (87) 98 10/26/16 19:04 Room Air 10/26/16 00:03 2.50 Labs Laboratory Tests Test 10/28/16 04:27 Blood Urea Nitrogen 47 Creatinine 1.49 Random Glucose 109 Calcium Level 8.4 Sodium Level 138 Potassium Level 3.3 Chloride Level 101 Carbon Dioxide Level 24.1 Anion Gap 13 Estimat Glomerular Filtration Rate 33 Date/Time Source Procedure Growth Status 10/26/16 21:50 Urine Catheterized Urine Urine Culture - Final NO GROWTH IN 48 HOURS. Complete Radiology Last Impressions Chest X-Ray 10/21/16 0600 Signed Impressions: Service Date/Time: Friday, October 21, 2016 06:09 - CONCLUSION: 1. Left basilar atelectasis. 2. Multiple left-sided rib fractures without pneumothorax. 3. Minimal lucency medially adjacent to the left heart border is likely from hiatal hernia versus less likely pneumothorax. Lakhwinder Scott MD Renal Ultrasound 10/20/16 0000 Signed Impressions: Service Date/Time: Thursday, October 20, 2016 13:41 - CONCLUSION: 1. Both kidneys demonstrate mild increased echotexture characteristic of medical renal disease. There is no hydronephrosis. 2. Simple benign-appearing 13 mm right renal cyst. Kenneth Arredondo MD Knee X-Ray 10/20/16 0000 Signed Impressions: Service Date/Time: Thursday, October 20, 2016 08:39 - CONCLUSION: 1. The exam demonstrates advanced tricompartmental osteoarthritis. 2. There is a large, high density effusion in the suprapatella bursa. I do not see a definite fracture however, with a high density effusion occult fracture and hemorrhage cannot be excluded. CT imaging of the knee could be performed for more definitive assessment if it is felt clinically warranted. Sukhdev So MD Foot X-Ray 10/20/16 0000 Signed Impressions: Service Date/Time: Thursday, October 20, 2016 20:20 - CONCLUSION: Non-to minimally displaced multifocal fracturing of the right foot including intra-articular fractures of the great toe distal phalanx and fourth toe proximal phalanx and neck fractures of the second and third metatarsals. Alignment is unchanged, near anatomic. No subluxations. No new fracture. Kenneth Macario MD Carotid Artery Ultrasound 10/20/16 0000 Signed Impressions: Service Date/Time: Thursday, October 20, 2016 15:34 - CONCLUSION: 1. There is mild atherosclerotic plaquing in the bifurcations bilaterally. 2. There is no hemodynamically significant carotid artery stenosis identified. Sukhdev So MD Ankle X-Ray 10/20/16 0000 Signed Impressions: Service Date/Time: Thursday, October 20, 2016 08:45 - CONCLUSION: 1. Moderately displaced distal fibular fracture. 2. Fracture of the fifth metatarsal. Sukhdev So MD Pelvis X-Ray 10/19/16 130 Signed Impressions: Service Date/Time: Wednesday, October 19, 2016 12:47 - CONCLUSION: No acute disease. Chad Wilkes MD Maxillofacial CT 10/19/16 130 Signed Impressions: Service Date/Time: Wednesday, October 19, 2016 13:10 - CONCLUSION: Soft tissue swelling. No evidence of acute fracture or paranasal sinus disease. Intact temporal mandibular joints. Chad Wilkes MD Head CT 10/19/16 130 Signed Impressions: Service Date/Time: Wednesday, October 19, 2016 13:09 - CONCLUSION: Aging brain with chronic ischemic white matter changes. No evidence of acute infarct, hemorrhage, mass or edema. No extra-axial fluid collections. Intact skull Chad Wilkes MD Chest CT 10/19/16 130 Signed Impressions: Service Date/Time: Wednesday, October 19, 2016 13:19 - CONCLUSION: 1. Left clavicle and left rib fractures with mild contusion along the lateral margin the left upper lobe. 2. Otherwise clear lungs 3. 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 4. Intact mediastinal structures. Chad Wilkes MD Cervical Spine CT 10/19/16 1303 Signed Impressions: Service Date/Time: Wednesday, October 19, 2016 13:10 - CONCLUSION: 1. No evidence of acute fracture or traumatic listhesis. 2. Advanced right-sided facet arthropathy. 3. Moderate degenerative disc disease. 4. No acute soft tissue abnormality. Chad Wilkes MD Abdomen/Pelvis CT 10/19/16 1303 Signed Impressions: Service Date/Time: Wednesday, October 19, 2016 13:19 - CONCLUSION: 1. 2.2 cm hepatic cyst. 2. Large paraesophageal diaphragmatic hernia containing stomach, left. 3. No evidence of soft tissue or bony traumatic injury. Chad Wilkes MD Tibia/Fibula X-Ray 10/19/16 0000 Signed Impressions: Service Date/Time: Wednesday, October 19, 2016 12:47 - CONCLUSION: Ankle fracture and foot fracture. Recommend complete 3 view ankle films and foot films Kenneth Ignacio MD Shoulder X-Ray 10/19/16 0000 Signed Impressions: Service Date/Time: Wednesday, October 19, 2016 00:00 - CONCLUSION: 1. Intact glenohumeral joint 2. Fractured left clavicle 3. Left rib fractures. Chad Wilkes MD Femur X-Ray 10/19/16 0000 Signed Impressions: Service Date/Time: Wednesday, October 19, 2016 12:47 - CONCLUSION: Unremarkable examination of the left femur. Kenneth Ignacio MD Narrative Exam GENERAL: 81 year old well-nourished, well developed female OOB in wheelchair. SKIN: Warm and dry. LEFT chin ecchymosis and facial abrasions noted. HEAD: Normocephalic. EYES: PERRL. ENT: No nasal bleeding or discharge. Mucous membranes pink and moist. NECK: Trachea midline. No JVD. CARDIOVASCULAR: Regular rate and rhythm. RESPIRATORY: No accessory muscle use. Lungs clear to auscultation. Breath sounds equal bilaterally. GASTROINTESTINAL: Abdomen soft, non-tender, nondistended. + BS. MUSCULOSKELETAL: Extremities without cyanosis, or edema. LLE soft splint with wound vac in place. RLE racquel wrap and fracture boot. MAEW. NEUROLOGICAL: Awake and alert. Normal speech. A/P Problem List: (1) Rib fractures ICD Codes: S22.39XA - Fracture of one rib, unspecified side, initial encounter for closed fracture Status: Acute (2) Laceration of lip ICD Codes: S01.511A - Laceration without foreign body of lip, initial encounter Status: Acute (3) Avulsion of skin of lower leg ICD Codes: S81.809A - Avulsion of skin of lower leg Status: Acute (4) Foot fracture, right ICD Codes: S92.901A - Unspecified fracture of right foot, initial encounter for closed fracture Status: Acute (5) Foot fracture, left ICD Codes: S92.902A - Unspecified fracture of left foot, initial encounter for closed fracture Status: Acute (6) Closed left clavicular fracture ICD Codes: S42.002A - Fracture of unspecified part of left clavicle, initial encounter for closed fracture Status: Acute Assessment and Plan INJURIES: LEFT lip laceration LEFT front incisor fx LEFT clavicle fx (non-op) LEFT rib fx (4-7) Pulmonary contusions LEFT lower leg degloving injury LEFT distal tibia fx RIGHT lower leg degloving injury RIGHT great, 2nd, 3rd, and 4th phalanx fxs (non-op) LEFT 5th phalanx fx (non-op) 10/19: Bilateral lower extremity I&D w/ wound vac to LEFT. LEFT ankle and LEFT patellar arthrotomy. Repair of tendons 10/21: I&D LEFT patella and knee. I&D LEFT fibula, talus and ankle. Complex closure of 20cm laceration. LEFT wound vac application Diet: ADA Pulm: IS, acapella, EZ-pap. Pain: Percocet. Morphine IV. Tylenol IV. Activity: OOB to stretcher chair. PT and OT ordered (NWB LLE, NWB LUE, Heel weight bearing with boot on to RLE) GI: Pepcid BID. Bowel: Colace BID. MOM. Lactulose. LBM: 10/24 DVT: SCD's. Heparin 5000 BID LEFT rib fxs, Pulmonary contusions Supportive care Pain control Pulmonary toileting OOB-PT RIGHT great, 2nd, 3rd, and 4th phalanx fxs, LEFT 5th phalanx fx, LEFT clavicle fx Orthopedics consulted Nonoperative management Pain control NWB LUE, Heel weight bearing with boot on to RLE Maintain sling to LUE BILATERAL lower leg degloving injury, LEFT distal tibia fx Orthopedics consulted 10/19: Bilateral lower extremity I&D w/ wound vac to LEFT. LEFT ankle and LEFT patellar arthrotomy. Repair of tendons 10/21: I&D LEFT patella and knee. I&D LEFT fibula, talus and ankle. Complex closure of 20cm laceration. LEFT wound vac application. Wound vac changes as ordered by Ortho Maintain sling to LUE OOB- PT/OT IV abx: Ancef. Rocephin NWB LLE, NWB LUE, Heel weight bearing with boot on to RLE OR today with Ortho SQ Heparin Hypertension HEPAS consulted for medical management Norvasc Metoprolol Clonidine ARF Nephrology following Bumex 1 mg daily Avoid nephrotoxic agents Monitor BUN/creatinine Plan of care discussed with patient at bedside. Case management consult to assist with discharge planning. Patient will likely need inpatient rehabilitation placement, [place] following. The exam, history, and the medical decision-making described in the above note were completed with the assistance of the mid-level provider. I reviewed and agree with the findings presented. I attest that I had a [id number] encounter with the patient on the same day, and personally performed and documented my assessment and findings in the medical record. Problem Qualifiers (1) Rib fractures: (2) Laceration of lip: (3) Avulsion of skin of lower leg: (4) Foot fracture, right: (5) Foot fracture, left: (6) Closed left clavicular fracture: Felix Glover Oct 28, 2016 12:53 Jm Mireles MD Nov 23, 2016 17:02
[2016-10-28] MEDS ORDERED: GENTAMICIN SULFATE 80 MG/2 ML VIAL ONE (13:30)
[2016-10-28] MEDS ORDERED: DEXAMETHASONE SOD PHOS 4 MG/ML VIAL ONE (13:31)
[2016-10-28] MEDS ORDERED: MIDAZOLAM HCL 2 MG/2 ML VIAL ONE (13:31)
[2016-10-28] MEDS ORDERED: FAMOTIDINE 20 MG/2 ML VIAL ONE (13:31)
[2016-10-28] MEDS: LACTATED RINGER'S 1000 ML INJ 1,000 ML IV SCH (14:56)
--- NOTE | 2016-10-28 15:04 | PD.OP ---
cc: Sander Monroy MD Operative Report Date of Surgery: Oct 28, 2016 Preoperative Diagnosis: Open left ankle fracture with degloving injury Postoperative Diagnosis: Procedure: Irrigation and debridement of left open fibula fracture, complex closure of 5 cm of wound, application wound VAC dressing Surgeon: Sander Monroy Watershed Manager(s): Kana Walter PA-C The surgical procedure was assisted by my physician mailing machine assistant. My P.A. presence was necessary throughout this case for the manipulation and positioning of the surgical extremity. My P.A. was assisting me throughout the duration of this procedure. The skill set of a physician mailing machine assistant was medically necessary to complete this procedure. During the surgical case the surgical instrument mechanic was working at the back table and the physician mailing machine assistant was directly assisting me. Operation and Findings: Patient was seen and examined preoperatively. Informed consent was obtained. Operative site was marked. She is brought to operating room. She is given IV sedation and general anesthesia. She received IV antibiotics. Left leg was prepped with alcohol followed by Hibiclens and draped usual sterile fashion. Timeout procedure was performed. Procedure began with the left ankle. The traumatic laceration was opened. At this point was turned to debridement of the wound and fractures. Skin subcutaneous tissue and fascia were sharply debrided. Scalpel and rongeur were used to debride the soft tissue. Overall the wound was relatively clean and healthy. Curettes were used to debride the fracture of the distal fibula and talus. After thorough debridement of the ankle, talus, and fibula the wound was now thoroughly irrigated with sterile saline. Next attention was turned to closure of the ankle wound. There was a large flap of skin. Some areas of the skin flap did look necrotic. The majority of the skin appeared tenuous, but still viable The open fractures were completely covered. Subcutaneous tissue was reapproximated with 3-0 PDS. Skin was now closed with 3-0 nylon. The proximal aspect of the wound over the mid tibia was left open. After completion of closure there was minimal skin tension. Some of the skin did have some darkening and has questionable viability. A combination of vertical mattress and retention sutures were used for closure. This point attention was turned to VAC dressing change. A large VAC dressing was cut to fit over the ankle wound. Skin was covered with a Xeroform. VAC dressing was now sealed appropriately using Ioban. Sterile dressings were applied. Patient was placed into a splint. She was awakened and transferred to recovery in stable condition. Sander Monroy MD Oct 28, 2016 15:04
[2016-10-28] MEDS ORDERED: DO NOT ADM ANY ANTICOAGULANT DRUGS PRN (15:21)
[2016-10-28] MEDS: cefTRIAXone INJ 1,000 MG in SODIUM CHLORIDE 0.9% INJ 100 ML IV SCH (17:10)
[2016-10-28 20:00] VITALS: PULSE 99
[2016-10-28] MEDS: MAGNESIUM HYDROXIDE SUSP 30 ML CUP PO SCH (20:50)
[2016-10-28] MEDS: oxyCODONE/ACETAMINOPHEN 5 MG/325 MG TAB PO PRN (21:00)
[2016-10-28 21:09] VITALS: BP 118/56; PULSE 114; RESP 16; TEMP 98.4; O2SAT 95
[2016-10-29] VITALS (8 sets, daily range): BP systolic 116–148; BP diastolic 55–67; PULSE 71–91; RESP 16–22; TEMP 97.3–98.9; O2SAT 95–97
[2016-10-29] MEDS: POLYMYXIN/TRIMETHOPRIM OPHT SOLN 10 ML BTL LEFT EYE SCH ×4 (06:00→18:00)
[2016-10-29] MEDS: LACTATED RINGER'S 1000 ML INJ 1,000 ML IV SCH ×4 (06:07→21:00)
[2016-10-29] MEDS ORDERED: BISACODYL EC 5 MG TABEC PO ONE (08:30)
[2016-10-29] MEDS ORDERED: BISACODYL 10 MG SUPP RECTAL ONE (08:30)
[2016-10-29] MEDS: SODIUM CHLORIDE 0.9% FLUSH 5 ML FLUSH IVF SCH ×2 (09:00→22:30)
[2016-10-29] MEDS: LACTULOSE SYRUP 20 GM/30 ML CUP PO SCH (09:14)
[2016-10-29] MEDS: MULTIVITAMINS/MINERALS THERAPEUTIC TAB PO SCH (09:14)
[2016-10-29] MEDS: LACTOBACILLUS ACIDOPHILUS TAB PO SCH ×3 (09:14→18:04)
[2016-10-29] MEDS: DOCUSATE SODIUM 50 MG/SENNA 8.6 MG TAB PO SCH ×2 (09:14→22:32)
[2016-10-29] MEDS: METOPROLOL TARTRATE 25 MG TAB PO SCH ×2 (09:15→22:32)
[2016-10-29] MEDS: ATORVASTATIN 10 MG TAB PO SCH (09:15)
[2016-10-29] MEDS: FAMOTIDINE 20 MG TAB PO SCH ×2 (09:16→22:32)
[2016-10-29] MEDS: FLUoxetine HCL 20 MG CAP PO SCH (09:16)
[2016-10-29] MEDS: FERROUS SULFATE 325 MG (65 MG ELEMENTAL IRON) TAB PO SCH (09:16)
[2016-10-29] MEDS: HEPARIN SODIUM - SQ 10,000 UNITS/ML VIAL SQ SCH ×2 (09:23→22:33)
[2016-10-29] MEDS: BACITRACIN TOP OINT 15 GM TUBE TOPICAL SCH ×2 (09:24→22:34)
--- NOTE | 2016-10-29 09:38 | PD.ORT.PN ---
Subjective Subjective Remarks POD 1 s/p I&D with vac change left leg s/p left lateral mal fx s/p multiple wounds right leg s/p right foot fractures s/p left clavicle fracture doing well. no complaints. no changes. n Objective Vitals Vital Signs Date Time Temp Pulse Resp B/P (MAP) Pulse Ox O2 Delivery O2 Flow Rate FiO2 10/29/16 08:00 98.0 79 16 142/66 (91) 96 10/29/16 06:01 98.9 71 16 126/59 (81) 96 10/29/16 00:44 98.9 91 18 129/55 (79) 96 10/28/16 21:09 98.4 114 16 118/56 (76) 95 10/28/16 20:00 99 10/28/16 16:00 94 16 138/58 (84) 98 Nasal Cannula 3 10/28/16 15:45 95 16 123/57 (79) 98 Nasal Cannula 3 10/28/16 15:24 97.6 93 13 117/55 (75) 95 Nasal Cannula 3 10/28/16 12:00 98.9 73 16 134/64 (87) 98 I/O 10/28/16 10/28/16 10/28/16 10/29/16 10/29/16 10/29/16 07:00 15:00 23:00 07:00 15:00 23:00 Intake Total 2000 ml Output Total 3000 ml 50 ml 350 ml Balance -3000 ml 1950 ml -350 ml Other 2000 ml Output Urine Total 350 ml Estimated Blood Loss 50 ml Other 3000 ml # Bowel Movements 0 Result Diagram: 10/27/16 1136 10/28/16 0427 Objective Remarks LLE: Dressings clean and dry. intact. +vac. good seal. RLE: dressings clean and dry. +fracture boot LUE: no sling present. nvi. pain with movement Assessment & Plan Assessment and Plan 1) Left Leg degloving with lateral malleolus fx s/p I&D with vac change - POD 1 2) s/p right leg degloving with I&D and wound closure - POD 10 3) Left clavicle Fracture - nonop -maintain vac at all times -fracture boot right leg -NWB LLE -Heel weight bearing with boot on to RLE -sling for left clavicle fracture and NWB -plan for vac change at bedside on thursday. will need xeroform/ioband/and large vac sponge Kana Walter Oct 29, 2016 09:38
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
[2016-10-29 10:36] LABS: AUTOMATED NEUTROPHIL # 17.7 TH/MM3 (1.8-7.7); BASOPHIL # 0.1 TH/MM3 (0-0.2); BASOPHIL % 0.3 % (0.0-2.0); EOSINOPHIL % 0.1 % (0.0-4.0); HEMATOCRIT 24.9 % (35.0-46.0); LYMPH % 5.4 % (9.0-44.0); LYMPHOCYTE # 1.1 TH/MM3 (1.0-4.8); MEAN CELL VOLUME 88.3 FL (80.0-100.0); MEAN CORPUSCULAR HEMOGLOBIN 29.9 PG (27.0-34.0); MEAN CORPUSCULAR HGB CONC 33.9 % (32.0-36.0); MONO % 6.8 % (0.0-8.0); NEUT % 87.4 % (16.0-70.0); PLATELET COUNT 536 TH/MM3 (150-450); RED BLOOD COUNT 2.82 MIL/MM3 (4.00-5.30); RED CELL DISTRIBUTION WIDTH 13.4 % (11.6-17.2); WHITE BLOOD COUNT 20.2 TH/MM3 (4.0-11.0)
[2016-10-29 10:45] LABS: HEMO FLAGS AUTO DIFF
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
[2016-10-29 11:02] LABS: BICARBONATE 22.8 MEQ/L (21.0-32.0); POTASSIUM 4.3 MEQ/L (3.5-5.1)
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
[2016-10-29 11:20] LABS: SCAN/DIFF AUTO DIFF CONFIRMED
[2016-10-29] MEDS: cefTRIAXone INJ 1,000 MG in SODIUM CHLORIDE 0.9% INJ 100 ML IV SCH (18:04)
[2016-10-29] MEDS: MAGNESIUM HYDROXIDE SUSP 30 ML CUP PO SCH (22:32)
[2016-10-29] MEDS: oxyCODONE/ACETAMINOPHEN 5 MG/325 MG TAB PO PRN (22:33)
[2016-10-30] VITALS (7 sets, daily range): BP systolic 124–163; BP diastolic 60–70; PULSE 71–95; RESP 16–20; TEMP 97.5–99; O2SAT 92–97
[2016-10-30] MEDS: LACTATED RINGER'S 1000 ML INJ 1,000 ML IV SCH (03:13)
[2016-10-30] MEDS: POLYMYXIN/TRIMETHOPRIM OPHT SOLN 10 ML BTL LEFT EYE SCH ×2 (06:00)
[2016-10-30 07:22] LABS: BASOPHIL % 0.4 % (0.0-2.0); EOSINOPHIL # 0.1 TH/MM3 (0-0.4); EOSINOPHIL % 0.7 % (0.0-4.0); HEMATOCRIT 24.7 % (35.0-46.0); LYMPH % 14.1 % (9.0-44.0); LYMPHOCYTE # 1.9 TH/MM3 (1.0-4.8); MEAN CELL VOLUME 87.8 FL (80.0-100.0); MEAN CORPUSCULAR HEMOGLOBIN 29.9 PG (27.0-34.0); MONO % 10.6 % (0.0-8.0); NEUT % 74.2 % (16.0-70.0); PLATELET COUNT 530 TH/MM3 (150-450); RED BLOOD COUNT 2.82 MIL/MM3 (4.00-5.30); RED CELL DISTRIBUTION WIDTH 13.4 % (11.6-17.2); WHITE BLOOD COUNT 13.4 TH/MM3 (4.0-11.0)
--- NOTE | 2016-10-30 07:22 | RADRPT ---
EXAM DATE/TIME: 10/30/2016 06:19 [facility] COMPARISON: CHEST SINGLE AP, October 26, 2016, 12:23. INDICATIONS : Cough MEDICAL HISTORY : Gastroesophageal reflux disease. Hypercholesterolemia. Hypertension. SURGICAL HISTORY : wound debridement ENCOUNTER: Subsequent ACUITY: 1 week PAIN SCORE: 6/10 LOCATION: Bilateral chest FINDINGS: Again appreciated are atherosclerotic changes of aorta with borderline left ventricular configuration . Hiatal hernia appreciated and left basilar opacity unchanged. CONCLUSION: Stable chest Luis Angel Luna MD on October 30, 2016 at 7:20 Board Certified Radiologist. This report was verified electronically.
[2016-10-30 07:28] LABS: ALT (GPT) 24 U/L (10-53); ANION GAP 9 MEQ/L (5-15); AST (GOT) 40 U/L (15-37); BICARBONATE 26.1 MEQ/L (21.0-32.0); BLOOD UREA NITROGEN 42 MG/DL (7-18); CHLORIDE 103 MEQ/L (98-107); GLOMERULAR FILTRATION RATE 35 ML/MIN (>89); POTASSIUM 4.1 MEQ/L (3.5-5.1); SODIUM (NA) 138 MEQ/L (136-145)
[2016-10-30 07:31] LABS: ALKALINE PHOSPHATASE 86 U/L (45-117); TOTAL BILIRUBIN ADULT 0.2 MG/DL (0.2-1.0)
[2016-10-30 08:00] LABS: HEMO FLAGS AUTO DIFF
[2016-10-30 09:10] LABS: BANDS 1 % (0-6); MYELOCYTES 1 % (0-0); NEUTROPHIL # MANUAL DIFF 10.7 TH/MM3 (1.8-7.7); POLYS (SEG NEUTROPHILS) 78 % (16-70); WBC DIFF SAMPLE 100
[2016-10-30 09:11] LABS: PLATELET ESTIMATE SMEAR HIGH (NORMAL); PLATELET MORPHOLOGY NORMAL (NORMAL); SCAN/DIFF FINAL DIFF MANUAL
[2016-10-30] MEDS: HEPARIN SODIUM - SQ 10,000 UNITS/ML VIAL SQ SCH ×2 (09:29→23:00)
[2016-10-30] MEDS: LACTOBACILLUS ACIDOPHILUS TAB PO SCH ×3 (09:31→17:06)
[2016-10-30] MEDS: FERROUS SULFATE 325 MG (65 MG ELEMENTAL IRON) TAB PO SCH (09:31)
[2016-10-30] MEDS: FLUoxetine HCL 20 MG CAP PO SCH (09:31)
[2016-10-30] MEDS: MULTIVITAMINS/MINERALS THERAPEUTIC TAB PO SCH (09:32)
[2016-10-30] MEDS: LACTULOSE SYRUP 20 GM/30 ML CUP PO SCH (09:32)
[2016-10-30] MEDS: FAMOTIDINE 20 MG TAB PO SCH ×2 (09:32→22:59)
[2016-10-30] MEDS: ATORVASTATIN 10 MG TAB PO SCH (09:32)
[2016-10-30] MEDS: METOPROLOL TARTRATE 25 MG TAB PO SCH ×2 (09:32→23:00)
[2016-10-30] MEDS: SODIUM CHLORIDE 0.9% FLUSH 5 ML FLUSH IVF SCH ×2 (09:35→23:00)
[2016-10-30] MEDS: BACITRACIN TOP OINT 15 GM TUBE TOPICAL SCH ×2 (09:39→23:01)
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
[2016-10-30] MEDS: oxyCODONE/ACETAMINOPHEN 5 MG/325 MG TAB PO PRN (17:07)
[2016-10-30] MEDS: cefTRIAXone INJ 1,000 MG in SODIUM CHLORIDE 0.9% INJ 100 ML IV SCH (17:10)
[2016-10-30] MEDS: DOCUSATE SODIUM 50 MG/SENNA 8.6 MG TAB PO SCH (22:59)
[2016-10-30] MEDS: cloNIDine HCL 0.1 MG TAB PO PRN (23:06)
[2016-10-31 00:14] VITALS: BP 130/61; PULSE 74; RESP 16; TEMP 98.4; O2SAT 97
[2016-10-31 08:00] VITALS: BP 153/67; PULSE 71; PULSE 78; RESP 19; TEMP 99.1; O2SAT 96
[2016-10-31] MEDS: SODIUM CHLORIDE 0.9% FLUSH 5 ML FLUSH IVF SCH ×2 (09:00→23:09)
[2016-10-31] MEDS: DOCUSATE SODIUM 50 MG/SENNA 8.6 MG TAB PO SCH ×2 (09:00→23:08)
[2016-10-31] MEDS: BACITRACIN TOP OINT 15 GM TUBE TOPICAL SCH ×2 (09:00→23:09)
[2016-10-31] MEDS: LACTULOSE SYRUP 20 GM/30 ML CUP PO SCH (09:00)
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
[2016-10-31] MEDS: FLUoxetine HCL 20 MG CAP PO SCH (10:27)
[2016-10-31] MEDS: FERROUS SULFATE 325 MG (65 MG ELEMENTAL IRON) TAB PO SCH (10:27)
[2016-10-31] MEDS: FAMOTIDINE 20 MG TAB PO SCH ×2 (10:28→23:09)
[2016-10-31] MEDS: ATORVASTATIN 10 MG TAB PO SCH (10:29)
[2016-10-31] MEDS: LACTOBACILLUS ACIDOPHILUS TAB PO SCH ×3 (10:29→18:59)
[2016-10-31] MEDS: MULTIVITAMINS/MINERALS THERAPEUTIC TAB PO SCH (10:29)
[2016-10-31] MEDS: METOPROLOL TARTRATE 25 MG TAB PO SCH ×2 (10:29→23:08)
[2016-10-31] MEDS: oxyCODONE/ACETAMINOPHEN 5 MG/325 MG TAB PO PRN ×2 (10:36→23:08)
[2016-10-31] MEDS: HEPARIN SODIUM - SQ 10,000 UNITS/ML VIAL SQ SCH ×2 (10:37→23:09)
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
[2016-10-31 12:00] VITALS: BP 134/63; PULSE 77; RESP 20; TEMP 98.7; O2SAT 96
--- NOTE | 2016-10-31 13:35 | PD.ORT.PN ---
Subjective Subjective Remarks POD 3 s/p I&D with vac change left leg s/p left lateral mal fx s/p multiple wounds right leg s/p right foot fractures s/p left clavicle fracture doing well. no complaints. no changes. Objective Vitals Vital Signs Date Time Temp Pulse Resp B/P (MAP) Pulse Ox O2 Delivery O2 Flow Rate FiO2 10/31/16 08:00 99.1 78 19 153/67 (95) 96 10/31/16 00:14 98.4 74 16 130/61 (84) 97 10/30/16 20:51 97.5 95 16 163/69 (100) 97 10/30/16 16:50 98.7 77 16 150/67 (94) 94 I/O 10/30/16 10/30/16 10/30/16 10/31/16 10/31/16 10/31/16 07:00 15:00 23:00 07:00 15:00 23:00 Intake Total 612 ml 100 ml Output Total 700 ml 1000 ml Balance -88 ml 100 ml -1000 ml IV Total 612 ml 100 ml Output Urine Total 700 ml 1000 ml # Bowel Movements 2 Result Diagram: 10/30/16 0545 10/30/16 0545 Objective Remarks LLE: Dressings clean and dry. intact. +vac. good seal. vac removed at bedside. wound healing. increased areas of tenuous skin and dusky skin. RLE: dressings clean and dry. +fracture boot LUE: no sling present. nvi. pain with movement Assessment & Plan Assessment and Plan 1) Left Leg degloving with lateral malleolus fx s/p I&D with vac change - POD 3 2) s/p right leg degloving with I&D and wound closure - POD 12 3) Left clavicle Fracture - nonop 4) Bilateral Foot Fractures of metatarsals -maintain vac at all times -vac changed at bedside today -fracture boot right leg -NWB LLE -Heel weight bearing with boot on to RLE -sling for left clavicle fracture and NWB -plan for vac change at bedside on thursday/thursday Kana Walter Oct 31, 2016 13:35
[2016-10-31] MEDS: REMOVE OLD DURAGESIC (FENTANYL) PATCH T-DERMAL SCH (14:00)
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
[2016-10-31 16:00] VITALS: BP 114/64; PULSE 74; RESP 18; TEMP 99.3; O2SAT 96
[2016-10-31] MEDS: cefTRIAXone INJ 1,000 MG in SODIUM CHLORIDE 0.9% INJ 100 ML IV SCH (18:57)
[2016-10-31 20:55] VITALS: BP 142/6; PULSE 87; RESP 20; TEMP 99.6; O2SAT 97
[2016-10-31] MEDS: MAGNESIUM HYDROXIDE SUSP 30 ML CUP PO SCH (21:00)
[2016-11-01] VITALS (8 sets, daily range): BP systolic 131–163; BP diastolic 65–74; PULSE 68–85; RESP 16–20; TEMP 96.6–99.8; O2SAT 94–98
[2016-11-01 08:44] LABS: HEMATOCRIT 25.9 % (35.0-46.0); MEAN CELL VOLUME 89.6 FL (80.0-100.0); MEAN CORPUSCULAR HEMOGLOBIN 29.2 PG (27.0-34.0); MEAN CORPUSCULAR HGB CONC 32.6 % (32.0-36.0); PLATELET COUNT 530 TH/MM3 (150-450); RED BLOOD COUNT 2.89 MIL/MM3 (4.00-5.30); RED CELL DISTRIBUTION WIDTH 13.6 % (11.6-17.2); REVIEW FLAG FINAL; WHITE BLOOD COUNT 15.4 TH/MM3 (4.0-11.0)
[2016-11-01 08:57] LABS: BICARBONATE 24.6 MEQ/L (21.0-32.0); POTASSIUM 4.2 MEQ/L (3.5-5.1)
[2016-11-01] MEDS: BACITRACIN TOP OINT 15 GM TUBE TOPICAL SCH ×2 (09:00→22:47)
[2016-11-01] MEDS: SODIUM CHLORIDE 0.9% FLUSH 5 ML FLUSH IVF SCH ×2 (09:00→22:45)
[2016-11-01] MEDS: METOPROLOL TARTRATE 25 MG TAB PO SCH ×2 (09:26→22:46)
[2016-11-01] MEDS: FLUoxetine HCL 20 MG CAP PO SCH (09:27)
[2016-11-01] MEDS: FERROUS SULFATE 325 MG (65 MG ELEMENTAL IRON) TAB PO SCH (09:27)
[2016-11-01] MEDS: LACTOBACILLUS ACIDOPHILUS TAB PO SCH ×3 (09:27→17:00)
[2016-11-01] MEDS: DOCUSATE SODIUM 50 MG/SENNA 8.6 MG TAB PO SCH ×2 (09:28→22:46)
[2016-11-01] MEDS: FAMOTIDINE 20 MG TAB PO SCH ×2 (09:29→22:46)
[2016-11-01] MEDS: ATORVASTATIN 10 MG TAB PO SCH (09:30)
[2016-11-01] MEDS: MULTIVITAMINS/MINERALS THERAPEUTIC TAB PO SCH (09:30)
[2016-11-01] MEDS: LACTULOSE SYRUP 20 GM/30 ML CUP PO SCH (09:31)
[2016-11-01] MEDS: HEPARIN SODIUM - SQ 10,000 UNITS/ML VIAL SQ SCH ×2 (09:31→22:47)
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
[2016-11-01] MEDS: MEGESTROL ACETATE SUSP 400 MG/10 ML CUP PO SCH (14:00)
[2016-11-01] MEDS: cefTRIAXone INJ 1,000 MG in SODIUM CHLORIDE 0.9% INJ 100 ML IV SCH (16:59)
[2016-11-01] MEDS: MAGNESIUM HYDROXIDE SUSP 30 ML CUP PO SCH (22:46)
[2016-11-01] MEDS: oxyCODONE/ACETAMINOPHEN 5 MG/325 MG TAB PO PRN (22:48)
[2016-11-02] VITALS (7 sets, daily range): BP systolic 130–174; BP diastolic 62–79; PULSE 68–83; RESP 16–18; TEMP 98.2–99.4; O2SAT 95–98
[2016-11-02] MEDS: BACITRACIN TOP OINT 15 GM TUBE TOPICAL SCH ×2 (09:00→22:59)
[2016-11-02] MEDS: SODIUM CHLORIDE 0.9% FLUSH 5 ML FLUSH IVF SCH ×2 (09:00→21:00)
[2016-11-02] MEDS: HEPARIN SODIUM - SQ 10,000 UNITS/ML VIAL SQ SCH ×2 (09:39→22:59)
[2016-11-02] MEDS: MEGESTROL ACETATE SUSP 400 MG/10 ML CUP PO SCH (09:40)
[2016-11-02] MEDS: LACTULOSE SYRUP 20 GM/30 ML CUP PO SCH (09:40)
[2016-11-02] MEDS: FLUoxetine HCL 20 MG CAP PO SCH (09:40)
[2016-11-02] MEDS: FAMOTIDINE 20 MG TAB PO SCH ×2 (09:41→22:58)
[2016-11-02] MEDS: LACTOBACILLUS ACIDOPHILUS TAB PO SCH ×3 (09:41→16:54)
[2016-11-02] MEDS: METOPROLOL TARTRATE 25 MG TAB PO SCH ×2 (09:43→22:58)
[2016-11-02] MEDS: MULTIVITAMINS/MINERALS THERAPEUTIC TAB PO SCH (09:44)
[2016-11-02] MEDS: ATORVASTATIN 10 MG TAB PO SCH (09:44)
[2016-11-02] MEDS: FERROUS SULFATE 325 MG (65 MG ELEMENTAL IRON) TAB PO SCH (09:44)
[2016-11-02] MEDS: DOCUSATE SODIUM 50 MG/SENNA 8.6 MG TAB PO SCH ×2 (09:44→22:58)
--- NOTE | 2016-11-02 10:43 | HHI.PR ---
Subjective Subjective Notes Complains of stomach cramps and left arm pain States she ate too much Objective Vitals/I&O Vital Signs Date Time Temp Pulse Resp B/P (MAP) Pulse Ox O2 Delivery O2 Flow Rate FiO2 11/02/16 08:00 98.3 81 16 174/79 (110) 97 Labs Date/Time Source Procedure Growth Status 10/26/16 21:50 Urine Catheterized Urine Urine Culture - Final NO GROWTH IN 48 HOURS. Complete Radiology Last 72 hours Impressions Chest X-Ray 10/30/16 0600 Signed Impressions: Service Date/Time: , October 30, 2016 06:19 - CONCLUSION: Stable chest Luis Angel Luna MD Narrative Exam GENERAL: 81 year old well-nourished, well developed female OOB in wheelchair. SKIN: Warm and dry. LEFT chin ecchymosis and facial abrasions noted. HEAD: Normocephalic. EYES: PERRL. ENT: No nasal bleeding or discharge. Mucous membranes pink and moist. NECK: Trachea midline. No JVD. CARDIOVASCULAR: Regular rate and rhythm. RESPIRATORY: No accessory muscle use. Lungs clear to auscultation. Breath sounds equal bilaterally. GASTROINTESTINAL: Abdomen soft, non-tender, nondistended. + BS. MUSCULOSKELETAL: Extremities without cyanosis, or edema. LLE soft splint with wound vac in place. RLE racquel wrap and fracture boot. MAEW. NEUROLOGICAL: Awake and alert. Normal speech. A/P Problem List: (1) Rib fractures ICD Codes: S22.39XA - Fracture of one rib, unspecified side, initial encounter for closed fracture Status: Acute (2) Laceration of lip ICD Codes: S01.511A - Laceration without foreign body of lip, initial encounter Status: Acute (3) Avulsion of skin of lower leg ICD Codes: S81.809A - Avulsion of skin of lower leg Status: Acute (4) Foot fracture, right ICD Codes: S92.901A - Unspecified fracture of right foot, initial encounter for closed fracture Status: Acute (5) Foot fracture, left ICD Codes: S92.902A - Unspecified fracture of left foot, initial encounter for closed fracture Status: Acute (6) Closed left clavicular fracture ICD Codes: S42.002A - Fracture of unspecified part of left clavicle, initial encounter for closed fracture Status: Acute Assessment and Plan INJURIES: LEFT lip laceration LEFT front incisor fx LEFT clavicle fx (non-op) LEFT rib fx (4-7) Pulmonary contusions LEFT lower leg degloving injury LEFT distal tibia fx RIGHT lower leg degloving injury RIGHT great, 2nd, 3rd, and 4th phalanx fxs (non-op) LEFT 5th phalanx fx (non-op) 10/19: Bilateral lower extremity I&D w/ wound vac to LEFT. LEFT ankle and LEFT patellar arthrotomy. Repair of tendons 10/21: I&D LEFT patella and knee. I&D LEFT fibula, talus and ankle. Complex closure of 20cm laceration. LEFT wound vac application 10/28: I&D of LEFT open fibula fx, complex wound closure, application wound vac dressing Diet: ADA, Megace Pulm: IS, acapella, EZ-pap. Pain: Percocet. Morphine IV. Tylenol IV. Activity: OOB to stretcher chair. PT and OT ordered (NWB LLE, NWB LUE, Heel weight bearing with boot on to RLE) GI: Pepcid BID. Bowel: Sofie-colace. MOM. Lactulose. LBM: 11/02 DVT: SCD's. Heparin 5000mg SQ BID LEFT rib fxs, Pulmonary contusions Supportive care Pain control Pulmonary toileting OOB-PT RIGHT foot fxs, LEFT 5th phalanx fx, LEFT clavicle fx Orthopedics consulted Podiatry consulted Nonoperative management Pain control NWB LUE, Heel weight bearing with boot on to RLE Maintain sling to LUE BILATERAL lower leg degloving injury, LEFT distal tibia fx Orthopedics consulted 10/19: Bilateral lower extremity I&D w/ wound vac to LEFT. LEFT ankle and LEFT patellar arthrotomy. Repair of tendons 10/21: I&D LEFT patella and knee. I&D LEFT fibula, talus and ankle. Complex closure of 20cm laceration. LEFT wound vac application 10/28: I&D of LEFT open fibula fx, complex wound closure, application wound vac dressing OOB- PT/OT IV abx: Ancef. Rocephin NWB LLE, NWB LUE, Heel weight bearing with boot on to RLE SQ Heparin Rehab placement Hypertension HEPAS consulted for medical management Norvasc Metoprolol Clonidine PRN Vasotec ARF Nephrology following Bumex on hold Avoid nephrotoxic agents Monitor BUN/creatinine Depression Prozac 60mg QD Neuropsychology consulted Plan of care discussed with patient at bedside. Case management consult to assist with discharge planning. Josias cabrera. Problem Qualifiers (1) Rib fractures: (2) Laceration of lip: (3) Avulsion of skin of lower leg: (4) Foot fracture, right: (5) Foot fracture, left: (6) Closed left clavicular fracture: Felix [facility] Nov 02, 2016 10:43
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
[2016-11-02] MEDS: cefTRIAXone INJ 1,000 MG in SODIUM CHLORIDE 0.9% INJ 100 ML IV SCH (16:51)
[2016-11-02] MEDS: MAGNESIUM HYDROXIDE SUSP 30 ML CUP PO SCH (22:58)
[2016-11-02] MEDS: oxyCODONE/ACETAMINOPHEN 5 MG/325 MG TAB PO PRN (23:00)
[2016-11-03] VITALS (7 sets, daily range): BP systolic 100–145; BP diastolic 56–75; PULSE 70–96; RESP 16–20; TEMP 98.2–100.1; O2SAT 95–98
[2016-11-03] MEDS: ACETAMINOPHEN 1000 MG/100 ML VIAL IV PRN (04:01)
--- NOTE | 2016-11-03 07:50 | PD.ORT.PN ---
Subjective Subjective Remarks POD 6 s/p I&D with vac change left leg s/p bedside vac change day 3 s/p left lateral mal fx s/p multiple wounds right leg s/p right foot fractures s/p left clavicle fracture doing well. no complaints. no changes. Objective Vitals Vital Signs Date Time Temp Pulse Resp B/P (MAP) Pulse Ox O2 Delivery O2 Flow Rate FiO2 11/02/16 20:00 98.7 83 18 148/69 (95) 98 11/02/16 20:00 98.7 83 18 148/69 (95) 98 11/02/16 20:00 83 11/02/16 16:00 99.4 78 17 157/70 (99) 96 11/02/16 12:00 98.2 82 17 169/74 (105) 98 11/02/16 08:00 98.3 81 16 174/79 (110) 97 I/O 11/02/16 11/02/16 11/02/16 11/03/16 11/03/16 11/03/16 07:00 15:00 23:00 07:00 15:00 23:00 Output Total 575 ml Balance -575 ml Output Urine Total 575 ml # Bowel Movements 0 1 Result Diagram: 11/01/16 0734 11/01/16 0731 Objective Remarks LLE: Dressings clean and dry. intact. +vac. good seal. vac removed at bedside. wound healing. increased areas of skin necrosis around proximal incision. wound beginning to dehisce. RLE: dressings clean and dry. +fracture boot LUE: no sling present. nvi. pain with movement Assessment & Plan Assessment and Plan 1) Left Leg degloving with lateral malleolus fx s/p I&D with vac change - POD 6 / vac change at bedside day 3 2) s/p right leg degloving with I&D and wound closure - POD 15 3) Left clavicle Fracture - nonop 4) Bilateral Foot Fractures of metatarsals -vac removed at bedside today. DC vac. -orthotech to place left ankle in fracture boot -will consult plastics for help with wound management left ankle -begin daily dressing changes with Bacitracin/xeroform/4x4/KYLER -fracture boot right leg -NWB LLE -Heel weight bearing with boot on to RLE -sling for left clavicle fracture and NWB -will order xrays of left clavicle, left ankle, left foot, and right foot today Kana Walter Nov 03, 2016 07:50
[2016-11-03] MEDS: SODIUM CHLORIDE 0.9% FLUSH 5 ML FLUSH IVF SCH ×2 (09:00→20:52)
[2016-11-03] MEDS: BACITRACIN TOP OINT 15 GM TUBE TOPICAL SCH ×3 (09:00→20:52)
--- NOTE | 2016-11-03 09:52 | RADRPT ---
EXAM DATE/TIME: 11/03/2016 08:59 [facility] COMPARISON: CHEST SINGLE AP, October 30, 2016, 6:19. INDICATIONS : Follow-up left clavicle fracture. MEDICAL HISTORY : None. SURGICAL HISTORY : None. ENCOUNTER: Subsequent ACUITY: 2 weeks PAIN SCORE: 10/10 LOCATION: Left clavicle. FINDINGS: 2 views of the clavicle show it fracture involving the distal left clavicle. There is 3 mm of separat ion of the fracture fragments. No angulation. The acromioclavicular and coracoclavicular distances ar e normal. Soft tissue swelling noted. CONCLUSION: Distal left clavicular fracture with 3 mm of separation. Espinoza Vee Jr., MD on November 03, 2016 at 9:34 Board Certified Radiologist. This report was verified electronically.
--- NOTE | 2016-11-03 09:55 | RADRPT ---
EXAM DATE/TIME: 11/03/2016 09:04 [facility] COMPARISON: FOOT LEFT COMPLETE ([id number]), October 20, 2016, 20:12. INDICATIONS : Follow-up foot fractures. MEDICAL HISTORY : None. SURGICAL HISTORY : None. ENCOUNTER: Subsequent ACUITY: 2 weeks PAIN SCORE: 10/10 LOCATION: Left foot. FINDINGS: 3 views left foot reveal a fracture involving the fifth metatarsal. There is 30 of angulation noted at the fracture site. The angulation is more pronounced than the prior exam. No significant callus fo rmation observed. The remaining bony structures show no fracture. Osteoarthritis of the first metatar geovanna phalangeal joint. No radiopaque foreign bodies. See ankle report is separately. CONCLUSION: No significant callus formation involving the fifth metatarsal fracture site. Worsening angulation re lative to the prior study. Espinoza Vee Jr., MD on November 03, 2016 at 9:50 Board Certified Radiologist. This report was verified electronically.
--- NOTE | 2016-11-03 09:56 | RADRPT ---
EXAM DATE/TIME: 11/03/2016 09:08 [facility] COMPARISON: ANKLE LEFT COMPLETE ([id number]), October 20, 2016, 8:45. INDICATIONS : Follow-up left ankle fracture. MEDICAL HISTORY : None. SURGICAL HISTORY : None. ENCOUNTER: Subsequent ACUITY: 2 weeks PAIN SCORE: 10/10 LOCATION: Left ankle. FINDINGS: 3 views of the ankle reveal a distal fibular fracture. No change in its appearance relative the prior study. No significant callus formation. No significant angulation or distraction. Soft tissues are u nremarkable. CONCLUSION: Unchanged distal fibular fracture. Espinoza Vee Jr., MD on November 03, 2016 at 9:54 Board Certified Radiologist. This report was verified electronically.
--- NOTE | 2016-11-03 09:58 | RADRPT ---
EXAM DATE/TIME: 11/03/2016 09:13 [facility] COMPARISON: FOOT RIGHT COMPLETE ([id number]), October 20, 2016, 20:20. INDICATIONS : Follw-up right foot fracture. MEDICAL HISTORY : None. SURGICAL HISTORY : None. ENCOUNTER: Subsequent ACUITY: 2 weeks PAIN SCORE: 10/10 LOCATION: Right foot. FINDINGS: 3 views of the right foot show no interval change. Fractures are seen involving the distal phalanx of the great toe, second and third metatarsal bones within the neck, and base of the fourth proximal ph alanx. No significant callus formation. No angulation or distraction. Osteopenia. Osteoarthritis of t he great toe. CONCLUSION: No change in the multiple fractures as detailed above. Espinoza Vee Jr., MD on November 03, 2016 at 9:55 Board Certified Radiologist. This report was verified electronically.
[2016-11-03] MEDS: FLUoxetine HCL 20 MG CAP PO SCH (10:12)
[2016-11-03] MEDS: METOPROLOL TARTRATE 25 MG TAB PO SCH ×2 (10:13→20:52)
[2016-11-03] MEDS: FAMOTIDINE 20 MG TAB PO SCH ×2 (10:13→20:52)
[2016-11-03] MEDS: MULTIVITAMINS/MINERALS THERAPEUTIC TAB PO SCH (10:13)
[2016-11-03] MEDS: DOCUSATE SODIUM 50 MG/SENNA 8.6 MG TAB PO SCH ×2 (10:13→20:52)
[2016-11-03] MEDS: FERROUS SULFATE 325 MG (65 MG ELEMENTAL IRON) TAB PO SCH (10:13)
[2016-11-03] MEDS: HEPARIN SODIUM - SQ 10,000 UNITS/ML VIAL SQ SCH ×2 (10:14→20:52)
[2016-11-03] MEDS: oxyCODONE/ACETAMINOPHEN 5 MG/325 MG TAB PO PRN ×2 (10:14→20:52)
[2016-11-03] MEDS: ATORVASTATIN 10 MG TAB PO SCH (10:14)
[2016-11-03] MEDS: LACTOBACILLUS ACIDOPHILUS TAB PO SCH ×3 (10:15→18:00)
[2016-11-03] MEDS: MEGESTROL ACETATE SUSP 400 MG/10 ML CUP PO SCH (10:15)
[2016-11-03] MEDS: LACTULOSE SYRUP 20 GM/30 ML CUP PO SCH (10:15)
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
--- NOTE | 2016-11-03 11:57 | HHI.PR ---
Subjective Subjective Notes Complains of left clavicle pain Objective Vitals/I&O Vital Signs Date Time Temp Pulse Resp B/P (MAP) Pulse Ox O2 Delivery O2 Flow Rate FiO2 11/03/16 08:44 98.4 79 16 145/75 (98) 96 Labs Date/Time Source Procedure Growth Status 10/26/16 21:50 Urine Catheterized Urine Urine Culture - Final NO GROWTH IN 48 HOURS. Complete Radiology Last 72 hours Impressions Chest X-Ray 10/30/16 0600 Signed Impressions: Service Date/Time: , October 30, 2016 06:19 - CONCLUSION: Stable chest Luis Angel Luna MD Narrative Exam GENERAL: 81 year old well-nourished, well developed female lying in bed. SKIN: Warm and dry. LEFT chin ecchymosis and facial abrasions noted. HEAD: Normocephalic. EYES: PERRL. ENT: No nasal bleeding or discharge. Mucous membranes pink and moist. NECK: Trachea midline. No JVD. CARDIOVASCULAR: Regular rate and rhythm. RESPIRATORY: No accessory muscle use. Lungs clear to auscultation. Breath sounds equal bilaterally. GASTROINTESTINAL: Abdomen soft, non-tender, nondistended. + BS. MUSCULOSKELETAL: Extremities without cyanosis, or edema. LLE racquel wrap with fracture boot in place. RLE racquel wrap and fracture boot. MAEW. NEUROLOGICAL: Awake and alert. Normal speech. A/P Problem List: (1) Rib fractures ICD Codes: S22.39XA - Fracture of one rib, unspecified side, initial encounter for closed fracture Status: Acute (2) Laceration of lip ICD Codes: S01.511A - Laceration without foreign body of lip, initial encounter Status: Acute (3) Avulsion of skin of lower leg ICD Codes: S81.809A - Avulsion of skin of lower leg Status: Acute (4) Foot fracture, right ICD Codes: S92.901A - Unspecified fracture of right foot, initial encounter for closed fracture Status: Acute (5) Foot fracture, left ICD Codes: S92.902A - Unspecified fracture of left foot, initial encounter for closed fracture Status: Acute (6) Closed left clavicular fracture ICD Codes: S42.002A - Fracture of unspecified part of left clavicle, initial encounter for closed fracture Status: Acute Assessment and Plan INJURIES: LEFT lip laceration LEFT front incisor fx LEFT clavicle fx (non-op) LEFT rib fx (4-7) Pulmonary contusions LEFT lower leg degloving injury LEFT distal tibia fx RIGHT lower leg degloving injury RIGHT great, 2nd, 3rd, and 4th phalanx fxs (non-op) LEFT 5th phalanx fx (non-op) 10/19: Bilateral lower extremity I&D w/ wound vac to LEFT. LEFT ankle and LEFT patellar arthrotomy. Repair of tendons 10/21: I&D LEFT patella and knee. I&D LEFT fibula, talus and ankle. Complex closure of 20cm laceration. LEFT wound vac application 10/28: I&D of LEFT open fibula fx, complex wound closure, application wound vac dressing Diet: ADA, Megace Pulm: IS, acapella, EZ-pap. Pain: Percocet. Morphine IV. Tylenol IV. Activity: OOB to stretcher chair. PT and OT ordered (NWB LLE, NWB LUE, Heel weight bearing with boot on to RLE) GI: Pepcid BID. Bowel: Sofie-colace. MOM. Lactulose. LBM: 11/03 DVT: SCD's. Heparin 5000mg SQ BID LEFT rib fxs, Pulmonary contusions Supportive care Pain control Pulmonary toileting OOB-PT RIGHT foot fxs, LEFT 5th phalanx fx, LEFT clavicle fx Orthopedics consulted Podiatry consulted Nonoperative management Pain control NWB LUE, Heel weight bearing with boot on to RLE Maintain sling to LUE BILATERAL lower leg degloving injury, LEFT distal tibia fx Orthopedics consulted 10/19: Bilateral lower extremity I&D w/ wound vac to LEFT. LEFT ankle and LEFT patellar arthrotomy. Repair of tendons 10/21: I&D LEFT patella and knee. I&D LEFT fibula, talus and ankle. Complex closure of 20cm laceration. LEFT wound vac application 10/28: I&D of LEFT open fibula fx, complex wound closure, application wound vac dressing OOB- PT/OT IV abx: Ancef. Rocephin NWB LLE, NWB LUE, Heel weight bearing with boot on to RLE SQ Heparin Rehab placement Plastics consulted for left ankle wound Ortho tentatively planning more surgeries Hypertension HEPAS consulted for medical management Norvasc Metoprolol Clonidine PRN Vasotec ARF Nephrology following Bumex on hold Avoid nephrotoxic agents Monitor BUN/creatinine Depression Prozac 60mg QD Neuropsychology consulted Plan of care discussed with patient at bedside. Case management consult to assist with discharge planning. Josias following. Plan to DC once cleared by Orthopedics. Problem Qualifiers (1) Rib fractures: (2) Laceration of lip: (3) Avulsion of skin of lower leg: (4) Foot fracture, right: (5) Foot fracture, left: (6) Closed left clavicular fracture: Felix Glover CLAIMS SUPERVISOR Nov 03, 2016 11:57
[2016-11-03] MEDS: REMOVE OLD DURAGESIC (FENTANYL) PATCH T-DERMAL SCH (14:00)
[2016-11-03] MEDS: cefTRIAXone INJ 1,000 MG in SODIUM CHLORIDE 0.9% INJ 100 ML IV SCH (18:00)
[2016-11-03] MEDS: MAGNESIUM HYDROXIDE SUSP 30 ML CUP PO SCH (20:51)
[2016-11-04 03:54] VITALS: BP 132/63; PULSE 72; RESP 18; TEMP 99; O2SAT 97
[2016-11-04 08:00] VITALS: BP 137/63; PULSE 80; RESP 16; TEMP 99.8; O2SAT 99
[2016-11-04] MEDS: BACITRACIN TOP OINT 15 GM TUBE TOPICAL SCH ×3 (09:00→21:00)
[2016-11-04] MEDS: SODIUM CHLORIDE 0.9% FLUSH 5 ML FLUSH IVF SCH ×2 (09:00→21:00)
[2016-11-04] MEDS: FERROUS SULFATE 325 MG (65 MG ELEMENTAL IRON) TAB PO SCH (09:02)
[2016-11-04] MEDS: FAMOTIDINE 20 MG TAB PO SCH ×2 (09:02→22:01)
[2016-11-04] MEDS: LACTOBACILLUS ACIDOPHILUS TAB PO SCH ×3 (09:02→17:32)
[2016-11-04] MEDS: ATORVASTATIN 10 MG TAB PO SCH (09:03)
[2016-11-04] MEDS: METOPROLOL TARTRATE 25 MG TAB PO SCH ×2 (09:03→22:02)
[2016-11-04] MEDS: DOCUSATE SODIUM 50 MG/SENNA 8.6 MG TAB PO SCH ×2 (09:03→22:02)
[2016-11-04] MEDS: MEGESTROL ACETATE SUSP 400 MG/10 ML CUP PO SCH (09:03)
[2016-11-04] MEDS: MULTIVITAMINS/MINERALS THERAPEUTIC TAB PO SCH (09:03)
[2016-11-04] MEDS: LACTULOSE SYRUP 20 GM/30 ML CUP PO SCH (09:04)
[2016-11-04] MEDS: HEPARIN SODIUM - SQ 10,000 UNITS/ML VIAL SQ SCH ×2 (09:07→22:01)
[2016-11-04] MEDS: FLUoxetine HCL 20 MG CAP PO SCH (09:07)
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
--- NOTE | 2016-11-04 10:54 | HHI.PR ---
Subjective Subjective Notes Having diarrhea Still painful in left arm Objective Vitals/I&O Vital Signs Date Time Temp Pulse Resp B/P (MAP) Pulse Ox O2 Delivery O2 Flow Rate FiO2 11/04/16 08:00 99.8 80 16 137/63 (87) 99 Labs Date/Time Source Procedure Growth Status 10/26/16 21:50 Urine Catheterized Urine Urine Culture - Final NO GROWTH IN 48 HOURS. Complete Radiology Last 72 hours Impressions Chest X-Ray 10/30/16 0600 Signed Impressions: Service Date/Time: , October 30, 2016 06:19 - CONCLUSION: Stable chest Luis Angel Luna MD Narrative Exam GENERAL: 81 year old well-nourished, well developed female sitting at the side of the bed. SKIN: Warm and dry. LEFT chin ecchymosis and facial abrasions noted. HEAD: Normocephalic. EYES: PERRL. ENT: No nasal bleeding or discharge. Mucous membranes pink and moist. NECK: Trachea midline. No JVD. CARDIOVASCULAR: Regular rate and rhythm. RESPIRATORY: No accessory muscle use. Lungs clear to auscultation. Breath sounds equal bilaterally. GASTROINTESTINAL: Abdomen soft, non-tender, nondistended. + BS. MUSCULOSKELETAL: Extremities without cyanosis, or edema. LLE racquel wrap with fracture boot in place. RLE racquel wrap and fracture boot. MAEW. NEUROLOGICAL: Awake and alert. Normal speech. A/P Problem List: (1) Rib fractures ICD Codes: S22.39XA - Fracture of one rib, unspecified side, initial encounter for closed fracture Status: Acute (2) Laceration of lip ICD Codes: S01.511A - Laceration without foreign body of lip, initial encounter Status: Acute (3) Avulsion of skin of lower leg ICD Codes: S81.809A - Avulsion of skin of lower leg Status: Acute (4) Foot fracture, right ICD Codes: S92.901A - Unspecified fracture of right foot, initial encounter for closed fracture Status: Acute (5) Foot fracture, left ICD Codes: S92.902A - Unspecified fracture of left foot, initial encounter for closed fracture Status: Acute (6) Closed left clavicular fracture ICD Codes: S42.002A - Fracture of unspecified part of left clavicle, initial encounter for closed fracture Status: Acute Assessment and Plan INJURIES: LEFT lip laceration LEFT front incisor fx LEFT clavicle fx (non-op) LEFT rib fx (4-7) Pulmonary contusions LEFT lower leg degloving injury LEFT distal tibia fx RIGHT lower leg degloving injury RIGHT great, 2nd, 3rd, and 4th phalanx fxs (non-op) LEFT 5th phalanx fx (non-op) 10/19: Bilateral lower extremity I&D w/ wound vac to LEFT. LEFT ankle and LEFT patellar arthrotomy. Repair of tendons 10/21: I&D LEFT patella and knee. I&D LEFT fibula, talus and ankle. Complex closure of 20cm laceration. LEFT wound vac application 10/28: I&D of LEFT open fibula fx, complex wound closure, application wound vac dressing Diet: ADA, Megace Pulm: IS, acapella, EZ-pap. Pain: Percocet. Morphine IV. Tylenol IV. Activity: OOB to stretcher chair. PT and OT ordered (NWB LLE, NWB LUE, Heel weight bearing with boot on to RLE) GI: Pepcid BID. Bowel: Sofie-colace. MOM. LBM: 11/04- diarrhea, hold Lactulose. R/O c diff DVT: SCD's. Heparin 5000mg SQ BID LEFT rib fxs, Pulmonary contusions Supportive care Pain control Pulmonary toileting OOB-PT RIGHT foot fxs, LEFT 5th phalanx fx, LEFT clavicle fx Orthopedics consulted Podiatry consulted Nonoperative management Pain control NWB LUE, Heel weight bearing with boot on to RLE Maintain sling to LUE BILATERAL lower leg degloving injury, LEFT distal tibia fx Orthopedics consulted 10/19: Bilateral lower extremity I&D w/ wound vac to LEFT. LEFT ankle and LEFT patellar arthrotomy. Repair of tendons 10/21: I&D LEFT patella and knee. I&D LEFT fibula, talus and ankle. Complex closure of 20cm laceration. LEFT wound vac application 10/28: I&D of LEFT open fibula fx, complex wound closure, application wound vac dressing OOB- PT/OT IV abx per Ortho: Rocephin NWB LLE, NWB LUE, Heel weight bearing with boot on to RLE SQ Heparin Rehab placement Plastics consulted for left ankle wound Ortho tentatively planning more surgeries Hypertension HEPAS consulted for medical management- cleared for DC Norvasc Metoprolol Clonidine PRN Vasotec ARF Nephrology following Bumex on hold Avoid nephrotoxic agents Monitor BUN/creatinine Depression Prozac 60mg QD Neuropsychology consulted Plan of care discussed with patient at bedside. Case management consult to assist with discharge planning. Josias following. Plan to DC once cleared by Orthopedics. Problem Qualifiers (1) Rib fractures: (2) Laceration of lip: (3) Avulsion of skin of lower leg: (4) Foot fracture, right: (5) Foot fracture, left: (6) Closed left clavicular fracture: Felix Glover Nov 04, 2016 10:54
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
[2016-11-04 12:00] VITALS: BP 116/55; PULSE 75; RESP 16; TEMP 98.8; O2SAT 96
[2016-11-04] MEDS: SILVER SULFADIAZINE 1% CR 400 GM JAR TOPICAL SCH (12:15)
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
[2016-11-04] MEDS: oxyCODONE/ACETAMINOPHEN 5 MG/325 MG TAB PO PRN ×2 (14:07→19:42)
[2016-11-04 14:47] LABS: AUTOMATED NEUTROPHIL # 13.4 TH/MM3 (1.8-7.7); BASOPHIL # 0.1 TH/MM3 (0-0.2); BASOPHIL % 0.6 % (0.0-2.0); EOSINOPHIL # 0.1 TH/MM3 (0-0.4); EOSINOPHIL % 0.3 % (0.0-4.0); HEMATOCRIT 27.2 % (35.0-46.0); HEMO FLAGS DIFF FINAL; LYMPH % 7.7 % (9.0-44.0); LYMPHOCYTE # 1.3 TH/MM3 (1.0-4.8); MEAN CELL VOLUME 89.8 FL (80.0-100.0); MEAN CORPUSCULAR HEMOGLOBIN 28.4 PG (27.0-34.0); MEAN CORPUSCULAR HGB CONC 31.6 % (32.0-36.0); MONO % 10.9 % (0.0-8.0); NEUT % 80.5 % (16.0-70.0); PLATELET COUNT 596 TH/MM3 (150-450); RED BLOOD COUNT 3.03 MIL/MM3 (4.00-5.30); RED CELL DISTRIBUTION WIDTH 13.8 % (11.6-17.2); WHITE BLOOD COUNT 16.7 TH/MM3 (4.0-11.0)
[2016-11-04 15:07] LABS: BICARBONATE 21.3 MEQ/L (21.0-32.0); POTASSIUM 4.7 MEQ/L (3.5-5.1)
[2016-11-04 16:00] VITALS: BP 127/60; PULSE 77; RESP 16; TEMP 98.3; O2SAT 96
[2016-11-04] MEDS: cefTRIAXone INJ 1,000 MG in SODIUM CHLORIDE 0.9% INJ 100 ML IV SCH (17:21)
[2016-11-04 20:00] VITALS: BP 144/76; PULSE 88; RESP 18; TEMP 99.3; O2SAT 98
[2016-11-04 21:20] VITALS: PULSE 83
[2016-11-04] MEDS: MAGNESIUM HYDROXIDE SUSP 30 ML CUP PO SCH (22:00)
[2016-11-05] VITALS (7 sets, daily range): BP systolic 111–161; BP diastolic 53–70; PULSE 71–80; RESP 18–20; TEMP 98.3–99.5; O2SAT 95–98
[2016-11-05] MEDS: oxyCODONE/ACETAMINOPHEN 5 MG/325 MG TAB PO PRN (03:35)
[2016-11-05] MEDS: cloNIDine HCL 0.1 MG TAB PO PRN (03:35)
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
[2016-11-05] MEDS: DOCUSATE SODIUM 50 MG/SENNA 8.6 MG TAB PO SCH ×2 (09:00→21:00)
[2016-11-05] MEDS: BACITRACIN TOP OINT 15 GM TUBE TOPICAL SCH ×3 (09:00→21:00)
[2016-11-05] MEDS: SILVER SULFADIAZINE 1% CR 400 GM JAR TOPICAL SCH (09:00)
[2016-11-05] MEDS: LACTOBACILLUS ACIDOPHILUS TAB PO SCH ×3 (09:18→17:16)
[2016-11-05] MEDS: FERROUS SULFATE 325 MG (65 MG ELEMENTAL IRON) TAB PO SCH (09:18)
[2016-11-05] MEDS: FLUoxetine HCL 20 MG CAP PO SCH (09:18)
[2016-11-05] MEDS: FAMOTIDINE 20 MG TAB PO SCH ×2 (09:18→22:36)
[2016-11-05] MEDS: METOPROLOL TARTRATE 25 MG TAB PO SCH ×2 (09:18→22:38)
[2016-11-05] MEDS: MULTIVITAMINS/MINERALS THERAPEUTIC TAB PO SCH (09:18)
[2016-11-05] MEDS: SODIUM CHLORIDE 0.9% FLUSH 5 ML FLUSH IVF SCH ×2 (09:19→21:00)
[2016-11-05] MEDS: HEPARIN SODIUM - SQ 10,000 UNITS/ML VIAL SQ SCH ×2 (09:19→22:39)
[2016-11-05] MEDS: MEGESTROL ACETATE SUSP 400 MG/10 ML CUP PO SCH (09:19)
[2016-11-05] MEDS: ATORVASTATIN 10 MG TAB PO SCH (09:19)
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
[2016-11-05] MEDS ORDERED: LACT PO (11:50)
[2016-11-05] MEDS ORDERED: MEGE40SU PO (11:50)
[2016-11-05] MEDS ORDERED: SILV1CRE20 TOPICAL (11:50)
[2016-11-05] MEDS ORDERED: METO25TA3 PO (11:50)
[2016-11-05] MEDS ORDERED: HEPA10003 SQ (11:50)
[2016-11-05] MEDS ORDERED: THERM PO (11:50)
[2016-11-05] MEDS ORDERED: OXYC1TAB63 PO (11:50)
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
[2016-11-05] MEDS: MAGNESIUM HYDROXIDE SUSP 30 ML CUP PO SCH (21:00)
[2016-11-06] VITALS: BP 128/62; PULSE 77; RESP 18; TEMP 98.6; O2SAT 98
[2016-11-06] MEDS: oxyCODONE/ACETAMINOPHEN 5 MG/325 MG TAB PO PRN (01:54)
[2016-11-06 04:00] VITALS: BP 135/61; PULSE 72; RESP 18; TEMP 97.9; O2SAT 98
[2016-11-06 08:00] VITALS: BP 131/76; PULSE 78; RESP 16; TEMP 99.1; O2SAT 96
[2016-11-06] MEDS: MEGESTROL ACETATE SUSP 400 MG/10 ML CUP PO SCH (08:49)
[2016-11-06] MEDS: FLUoxetine HCL 20 MG CAP PO SCH (08:50)
[2016-11-06] MEDS: FAMOTIDINE 20 MG TAB PO SCH (08:50)
[2016-11-06] MEDS: METOPROLOL TARTRATE 25 MG TAB PO SCH (08:50)
[2016-11-06] MEDS: HEPARIN SODIUM - SQ 10,000 UNITS/ML VIAL SQ SCH (08:50)
[2016-11-06] MEDS: MULTIVITAMINS/MINERALS THERAPEUTIC TAB PO SCH (08:51)
[2016-11-06] MEDS: FERROUS SULFATE 325 MG (65 MG ELEMENTAL IRON) TAB PO SCH (08:51)
[2016-11-06] MEDS: DOCUSATE SODIUM 50 MG/SENNA 8.6 MG TAB PO SCH (08:51)
[2016-11-06] MEDS: ATORVASTATIN 10 MG TAB PO SCH (08:51)
[2016-11-06] MEDS: LACTOBACILLUS ACIDOPHILUS TAB PO SCH ×3 (08:51→18:00)
[2016-11-06] MEDS: SODIUM CHLORIDE 0.9% FLUSH 5 ML FLUSH IVF SCH (08:51)
[2016-11-06] MEDS: BACITRACIN TOP OINT 15 GM TUBE TOPICAL SCH ×2 (08:51→08:52)
[2016-11-06] MEDS: SILVER SULFADIAZINE 1% CR 400 GM JAR TOPICAL SCH (08:52)
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
[2016-11-06 12:00] VITALS: BP 122/60; PULSE 68; RESP 18; TEMP 99; O2SAT 97
--- NOTE | 2016-11-06 12:37 | HHI.PR ---
Subjective Subjective Notes Reports she feels sore, but pain is better Awaiting SNF placement Objective Vitals/I&O Vital Signs Date Time Temp Pulse Resp B/P (MAP) Pulse Ox O2 Delivery O2 Flow Rate FiO2 11/06/16 04:00 97.9 72 18 135/61 (85) 98 Labs Date/Time Source Procedure Growth Status 10/26/16 21:50 Urine Catheterized Urine Urine Culture - Final NO GROWTH IN 48 HOURS. Complete Radiology Last 72 hours Impressions Chest X-Ray 10/30/16 0600 Signed Impressions: Service Date/Time: , October 30, 2016 06:19 - CONCLUSION: Stable chest Luis Angel Luna MD Narrative Exam GENERAL: 81 year old well-nourished, well developed female lying in bed. SKIN: Warm and dry. LEFT chin ecchymosis and facial abrasions noted. HEAD: Normocephalic. EYES: PERRL. ENT: No nasal bleeding or discharge. Mucous membranes pink and moist. NECK: Trachea midline. No JVD. CARDIOVASCULAR: Regular rate and rhythm. RESPIRATORY: No accessory muscle use. Lungs clear to auscultation. Breath sounds equal bilaterally. GASTROINTESTINAL: Abdomen soft, non-tender, nondistended. + BS. MUSCULOSKELETAL: Extremities without cyanosis, or edema. LLE kyler wrap with fracture boot in place. RLE kyler wrap and fracture boot. MAEW. NEUROLOGICAL: Awake and alert. Normal speech. A/P Problem List: (1) Rib fractures ICD Codes: S22.39XA - Fracture of one rib, unspecified side, initial encounter for closed fracture Status: Acute (2) Laceration of lip ICD Codes: S01.511A - Laceration without foreign body of lip, initial encounter Status: Acute (3) Avulsion of skin of lower leg ICD Codes: S81.809A - Avulsion of skin of lower leg Status: Acute (4) Foot fracture, right ICD Codes: S92.901A - Unspecified fracture of right foot, initial encounter for closed fracture Status: Acute (5) Foot fracture, left ICD Codes: S92.902A - Unspecified fracture of left foot, initial encounter for closed fracture Status: Acute (6) Closed left clavicular fracture ICD Codes: S42.002A - Fracture of unspecified part of left clavicle, initial encounter for closed fracture Status: Acute Assessment and Plan INJURIES: LEFT lip laceration LEFT front incisor fx LEFT clavicle fx (non-op) LEFT rib fx (4-7) Pulmonary contusions LEFT lower leg degloving injury LEFT distal tibia fx RIGHT lower leg degloving injury RIGHT great, 2nd, 3rd, and 4th phalanx fxs (non-op) LEFT 5th phalanx fx (non-op) 10/19: Bilateral lower extremity I&D w/ wound vac to LEFT. LEFT ankle and LEFT patellar arthrotomy. Repair of tendons 10/21: I&D LEFT patella and knee. I&D LEFT fibula, talus and ankle. Complex closure of 20cm laceration. LEFT wound vac application 10/28: I&D of LEFT open fibula fx, complex wound closure, application wound vac dressing Diet: ADA, Megace Pulm: IS, acapella, EZ-pap. Pain: Percocet. Morphine IV. Tylenol IV. Activity: OOB to stretcher chair. PT and OT ordered (NWB LLE, NWB LUE, Heel weight bearing with boot on to RLE) GI: Pepcid BID. Bowel: Sofie-colace. MOM. LBM: 11/05 DVT: SCD's. Heparin 5000mg SQ BID LEFT rib fxs, Pulmonary contusions Supportive care Pain control Pulmonary toileting OOB-PT RIGHT foot fxs, LEFT 5th phalanx fx, LEFT clavicle fx Orthopedics consulted Podiatry consulted Nonoperative management Pain control NWB LUE, Heel weight bearing with boot on to RLE Maintain sling to LUE BILATERAL lower leg degloving injury, LEFT distal tibia fx Orthopedics consulted and cleared for DC 10/19: Bilateral lower extremity I&D w/ wound vac to LEFT. LEFT ankle and LEFT patellar arthrotomy. Repair of tendons 10/21: I&D LEFT patella and knee. I&D LEFT fibula, talus and ankle. Complex closure of 20cm laceration. LEFT wound vac application 10/28: I&D of LEFT open fibula fx, complex wound closure, application wound vac dressing OOB- PT/OT NWB LLE, NWB LUE, Heel weight bearing with boot on to RLE Wound vac removed 11/03 Daily dressing changes to left ankle with bacitracin/xeroform/4x4/KYLER Daily dressing changes to the lower legs. Apply silvadene cream to telfa pads and apply to wounds. Cover with 4x4 and wrap loosely with oswaldo. Reapply kyler wrap and boots SQ Heparin Rehab placement Plastics consulted for left ankle wound- No coverage F/U as outpatient Hypertension HEPAS consulted for medical management- cleared for DC Norvasc Metoprolol Clonidine PRN Vasotec ARF Nephrology consulted, signed off Back to baseline creatinine Avoid nephrotoxic agents Depression Prozac 60mg QD Neuropsychology consulted Plan of care discussed with patient at bedside. Case management consult to assist with discharge planning. Clear for discharge to rehab. CM assisting with placement. Attending Statement patient seen and examined as above cleared by hepas await snf when bed available Attestation The exam, history, and the medical decision-making described in the above note were completed with the assistance of the mid-level provider. I reviewed and agree with the findings presented. I attest that I had a [id number] encounter with the patient on the same day, and personally performed and documented my assessment and findings in the medical record. Problem Qualifiers (1) Rib fractures: (2) Laceration of lip: (3) Avulsion of skin of lower leg: (4) Foot fracture, right: (5) Foot fracture, left: (6) Closed left clavicular fracture: Felix Glover Nov 06, 2016 12:37 Abimael Chung MD Nov 11, 2016 10:47
[2016-11-06] MEDS: REMOVE OLD DURAGESIC (FENTANYL) PATCH T-DERMAL SCH (14:00)
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
== END 2016-11-06 18:17 | DRG 464 ==
LOC: NEPI 12:52 → NEDH 13:26 → EDBD 13:26 → N03A 13:41 → N05B 10-20 22:15
PROVIDERS: ADMIT Surgery; ATTEND Surgery
PROC: 0QBF0ZZ Excision of Left Patella, Open Approach (ICD-10-PCS; 2016-10-19)
PROC: 0KBT0ZZ Excision of Left Lower Leg Muscle, Open Approach (ICD-10-PCS; 2016-10-19)
PROC: 0LBP0ZZ Excision of Left Lower Leg Tendon, Open Approach (ICD-10-PCS; 2016-10-19)
PROC: 0JQN0ZZ Repair Right Lower Leg Subcutaneous Tissue and Fascia, Open Approach (ICD-10-PCS; 2016-10-19)
PROC: 0KBS0ZZ Excision of Right Lower Leg Muscle, Open Approach (ICD-10-PCS; 2016-10-19)
PROC: 0JQP0ZZ Repair Left Lower Leg Subcutaneous Tissue and Fascia, Open Approach (ICD-10-PCS; 2016-10-19)
PROC: 0SQD0ZZ Repair Left Knee Joint, Open Approach (ICD-10-PCS; 2016-10-19)
PROC: 0JBP0ZZ Excision of Left Lower Leg Subcutaneous Tissue and Fascia, Open Approach (ICD-10-PCS; 2016-10-21)
PROC: 0SBD0ZZ Excision of Left Knee Joint, Open Approach (ICD-10-PCS; 2016-10-21)
PROC: 0SBG0ZZ Excision of Left Ankle Joint, Open Approach (ICD-10-PCS; 2016-10-21)
PROC: 0QBF0ZZ Excision of Left Patella, Open Approach (ICD-10-PCS; 2016-10-21)
PROC: 0JBR0ZZ Excision of Left Foot Subcutaneous Tissue and Fascia, Open Approach (ICD-10-PCS; principal; 2016-10-21 12:39)
PROC: 30233N1 Transfusion of Nonautologous Red Blood Cells into Peripheral Vein, Percutaneous Approach (ICD-10-PCS; 2016-10-22)
PROC: 0JBR0ZZ Excision of Left Foot Subcutaneous Tissue and Fascia, Open Approach (ICD-10-PCS; 2016-10-28)
PROC: 0QBK0ZZ Excision of Left Fibula, Open Approach (ICD-10-PCS; 2016-10-28)
PROC: 0QBM0ZZ Excision of Left Tarsal, Open Approach (ICD-10-PCS; 2016-10-28)
DX: S82.092B Other fracture of left patella, initial encounter for open fracture type I or II (principal); S22.42XA Multiple fractures of ribs, left side, initial encounter for closed fracture; N17.9 Acute kidney failure, unspecified; S27.329A Contusion of lung, unspecified, initial encounter; D62 Acute posthemorrhagic anemia; E87.1 Hypo-osmolality and hyponatremia; S92.142B Displaced dome fracture of left talus, initial encounter for open fracture; S82.62XB Displaced fracture of lateral malleolus of left fibula, initial encounter for open fracture type I or II; S96.122A Laceration of muscle and tendon of long extensor muscle of toe at ankle and foot level, left foot, initial encounter; I10 Essential (primary) hypertension; S42.002A Fracture of unspecified part of left clavicle, initial encounter for closed fracture; V28.5XXA Motorcycle passenger injured in noncollision transport accident in traffic accident, initial encounter; Y92.411 Interstate highway as the place of occurrence of the external cause; S92.401A Displaced unspecified fracture of right great toe, initial encounter for closed fracture; S92.512A Displaced fracture of proximal phalanx of left lesser toe(s), initial encounter for closed fracture; S92.321A Displaced fracture of second metatarsal bone, right foot, initial encounter for closed fracture; S92.352A Displaced fracture of fifth metatarsal bone, left foot, initial encounter for closed fracture; E78.5 Hyperlipidemia, unspecified; K21.9 Gastro-esophageal reflux disease without esophagitis; M19.90 Unspecified osteoarthritis, unspecified site; F32.9 Major depressive disorder, single episode, unspecified; S50.02XA Contusion of left elbow, initial encounter; S50.01XA Contusion of right elbow, initial encounter; S60.222A Contusion of left hand, initial encounter; S60.221A Contusion of right hand, initial encounter; G89.29 Other chronic pain; M54.5 Low back pain; D72.829 Elevated white blood cell count, unspecified; E87.70 Fluid overload, unspecified; F41.9 Anxiety disorder, unspecified; K59.00 Constipation, unspecified; N28.1 Cyst of kidney, acquired; S01.511A Laceration without foreign body of lip, initial encounter; T38.0X5A Adverse effect of glucocorticoids and synthetic analogues, initial encounter; R05 Cough; R19.7 Diarrhea, unspecified; R40.2412 Glasgow coma scale score 13-15, at arrival to emergency department; R55 Syncope and collapse
CPT/HCPCS: 36430; 70450; 70486; 71010; 71250; 72125; 72170; 73000; 73020; 73030; 73551; 73560; 73600; 73610; 73630; 74176; 76000; 76775; 76937; 80048; 80053; 80069; 80170; 81001; 82435; 82550; 82552; 82565; 82728; 82947; 83540; 83550; 83735; 84132; 84295; 84520; 85007; 85014; 85018; 85025; 85027; 85610; 85730; 86850; 86900; 86901; 86920; 87086; 87641; 93005; 93880; 94150; 94640; 94664; 94667; 94668; 96374; 96375; 99291; C9113; G0390; J0131; J0690; J0696; J1100; J1580; J1644; J1885; J2250; J2270; J2405; J2710; J3010; J3370; J7030; J7120; J7613; L2114; P9016

== ENCOUNTER 2016-11-27 16:26 | Inpatient (IN) | payer OTHER, MEDICAID, MEDICARE ==
[~2016-11-27] VITALS: Ht 154.9 cm; Wt 54.0 kg
[~2016-11-27 16:26] MED LIST changes: +AMLO10TA2 PO; +ATOR10TA15 PO; +BUME1TAB PO; +CALC0.25 PO; -DEXAMETHASONE SOD PHOS 20 MG/5 ML VIAL IV ONE; +DIFL0.0512; +FERR325T8 PO; +FLUO40CA PO; +HEPA10003 SQ; +LACT PO; -LACTATED RINGER'S 1000 ML INJ 2,000 ML IV ONE; +LORA-392 PO; +LOVA40TA PO; +MAGN400S PO; +MEGE40SU PO; +METO25TA3 PO; +OMEP20TA PO; -ONDANSETRON HCL 4 MG/2 ML VIAL IV PUSH ONE; +OXYC1TAB63 PO; +POTA-243 PO; -PROPOFOL 200 MG/20 ML AMP IV ONE; +SENN1TAB PO; +SILV1CRE20 TOPICAL; +THERM PO; +TIZA4TAB PO; +TRAM50TA PO; +TRIMSOL LEFT EYE; +TYLETAB34 PO; +ZOFR4TAB PO; -ePHEDrine/NS 25 MG/5 ML SYR IV ONE
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
[2016-11-27 16:40] VITALS: BP 140/61; PULSE 107; RESP 20; O2SAT 99
[2016-11-27] MEDS ORDERED: ONDANSETRON HCL 4 MG/2 ML VIAL IV PUSH ONE (16:45)
[2016-11-27] MEDS ORDERED: SODIUM CHLOR 0.9% 1000 ML INJ 1,000 ML IV ONE ×2 (16:45→18:45)
[2016-11-27] MEDS ORDERED: CIPR-9 PO (17:15)
[2016-11-27 17:18] VITALS: O2SAT 100
[2016-11-27] MEDS ORDERED: ATOR40TA16 PO (17:20)
[2016-11-27 17:44] LABS: BASOPHIL % 0.5 % (0.0-2.0); EOSINOPHIL % 0.4 % (0.0-4.0); HEMATOCRIT 24.9 % (35.0-46.0); LYMPH % 22.7 % (9.0-44.0); LYMPHOCYTE # 2.1 TH/MM3 (1.0-4.8); MEAN CELL VOLUME 90.1 FL (80.0-100.0); MEAN CORPUSCULAR HEMOGLOBIN 32.5 PG (27.0-34.0); MONO % 11.2 % (0.0-8.0); NEUT % 65.2 % (16.0-70.0); PLATELET COUNT 482 TH/MM3 (150-450); RED BLOOD COUNT 2.76 MIL/MM3 (4.00-5.30); RED CELL DISTRIBUTION WIDTH 15.2 % (11.6-17.2); WHITE BLOOD COUNT 9.3 TH/MM3 (4.0-11.0)
--- NOTE | 2016-11-27 17:49 | RADRPT ---
EXAM DATE/TIME: 11/27/2016 17:17 [facility] COMPARISON: CHEST SINGLE AP, October 30, 2016, 6:19. INDICATIONS : Patient is here to have bilateral lower extremity surgery. MEDICAL HISTORY : Hypercholesterolemia. Hypertension. Gastroesophageal reflux disease. Anemia SURGICAL HISTORY : wound debridement ENCOUNTER: Initial ACUITY: 1 day PAIN SCORE: 0/10 LOCATION: upper chest FINDINGS: A single view of the chest demonstrates the lungs to be symmetrically aerated with minimal atelectati c changes in the left lingula and left lung base. Associated moderate-sized hiatal hernia. No effusio ns. Heart size is normal. Degenerative spurring of the dorsal spine. Osseous structures are otherwise intact. CONCLUSION: 1. Moderate-sized hiatal hernia with concomitant left lingular and left basilar atelectatic changes. 2. No acute infiltrate. Trevor Royal MD on November 27, 2016 at 17:46 Board Certified Radiologist. This report was verified electronically.
[2016-11-27 17:55] LABS: HEMO FLAGS AUTO DIFF
[2016-11-27 18:05] LABS: ALT (GPT) 25 U/L (10-53); ANION GAP 10 MEQ/L (5-15); AST (GOT) 17 U/L (15-37); BLOOD UREA NITROGEN 62 MG/DL (7-18); CHLORIDE 100 MEQ/L (98-107); GLOMERULAR FILTRATION RATE 25 ML/MIN (>89); POTASSIUM 4.9 MEQ/L (3.5-5.1); SODIUM (NA) 131 MEQ/L (136-145)
[2016-11-27 18:07] LABS: ALKALINE PHOSPHATASE 86 U/L (45-117); TOTAL BILIRUBIN ADULT 0.3 MG/DL (0.2-1.0)
[2016-11-27 18:15] VITALS: BP 116/54; PULSE 104; RESP 18; O2SAT 99
[2016-11-27 18:28] LABS: PLATELET ESTIMATE SMEAR HIGH (NORMAL); PLATELET MORPHOLOGY NORMAL (NORMAL); SCAN/DIFF AUTO DIFF CONFIRMED
[2016-11-27] MEDS ORDERED: PIPERACIL-TAZO 4.5 GM PREMIX 100 ML IV ONE (18:45)
[2016-11-27] MEDS ORDERED: VANCOMYCIN INJ 1,000 MG in SODIUM CHLOR 0.9% 250 ML INJ 250 ML IV ONE (18:45)
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
[2016-11-27] MEDS ORDERED: Vancomycin Consult Pharmacy 1 EA OTHER SCH (19:15)
[2016-11-27] MEDS ORDERED: SENNOSIDES 8.6 MG TAB PO PRN (19:15)
[2016-11-27] MEDS ORDERED: BISACODYL 10 MG SUPP RECTAL PRN (19:15)
[2016-11-27] MEDS ORDERED: ONDANSETRON HCL 4 MG/2 ML VIAL IVP PRN (19:15)
[2016-11-27] MEDS ORDERED: SODIUM CHLORIDE 0.9% FLUSH 10 ML FLUSH IV FLUSH PRN (19:15)
[2016-11-27] MEDS ORDERED: LACTULOSE SYRUP 20 GM/30 ML CUP PO PRN (19:15)
[2016-11-27] MEDS ORDERED: ACETAMINOPHEN/HYDROcodone 325 MG/5 MG TAB PO PRN (19:15)
[2016-11-27] MEDS ORDERED: MAGNESIUM HYDROXIDE SUSP 30 ML CUP PO PRN (19:15)
[2016-11-27] MEDS ORDERED: ACETAMINOPHEN 325 MG TAB PO PRN (19:15)
[2016-11-27 19:28] LABS: LACTIC ACID GHOST NOT REPORTABLE
[2016-11-27 20:23] VITALS: BP 125/60; PULSE 92; RESP 18; O2SAT 99
[2016-11-27 20:38] VITALS: TEMP 97.9
[2016-11-27] MEDS: DOCUSATE SODIUM 50 MG/SENNA 8.6 MG TAB PO SCH (21:00)
[2016-11-27] MEDS: SODIUM CHLORIDE 0.9% FLUSH 10 ML FLUSH IV FLUSH SCH (21:00)
[2016-11-27] MEDS ORDERED: VANCOMYCIN INJ 1,200 MG in SODIUM CHLOR 0.9% 250 ML INJ 250 ML IV ONE (21:00)
[2016-11-27] MEDS: ATORVASTATIN 40 MG TAB PO SCH (21:00)
[2016-11-27] MEDS: SODIUM CHLOR 0.9% 1000 ML INJ 1,000 ML IV SCH (21:20)
[2016-11-27 22:00] VITALS: PULSE 94
[2016-11-27] MEDS: MORPHINE SULFATE 4 MG/ML INJ IV PUSH PRN (23:12)
[2016-11-28] VITALS (7 sets, daily range): BP systolic 100–156; BP diastolic 52–70; PULSE 77–112; RESP 16–20; TEMP 96.6–99.3; O2SAT 95–98
[2016-11-28 01:56] LABS: BLOOD, URINE MOD (NEG); COMMENT (UR) CATH-CULTURE IND; CULTURE IF INDICATED CATH CULTURE IND; GLUCOSE,URINE NEG (NEG); KETONE, URINE NEG (NEG); NITRITE,URINE NEG (NEG); URINE COLOR YELLOW (YELLW/STRAW)
[2016-11-28] MEDS: SODIUM CHLOR 0.9% 1000 ML INJ 1,000 ML IV SCH ×2 (06:15→15:01)
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
[2016-11-28 07:23] LABS: AUTOMATED NEUTROPHIL # 4.6 TH/MM3 (1.8-7.7); BASOPHIL % 0.4 % (0.0-2.0); EOSINOPHIL # 0.1 TH/MM3 (0-0.4); EOSINOPHIL % 1.1 % (0.0-4.0); HEMO FLAGS DIFF FINAL; LYMPH % 25.6 % (9.0-44.0); LYMPHOCYTE # 1.9 TH/MM3 (1.0-4.8); MEAN CELL VOLUME 90.3 FL (80.0-100.0); MEAN CORPUSCULAR HEMOGLOBIN 29.7 PG (27.0-34.0); MEAN CORPUSCULAR HGB CONC 32.9 % (32.0-36.0); NEUT % 60.9 % (16.0-70.0); PLATELET COUNT 388 TH/MM3 (150-450); RED BLOOD COUNT 2.44 MIL/MM3 (4.00-5.30); RED CELL DISTRIBUTION WIDTH 15.4 % (11.6-17.2); WHITE BLOOD COUNT 7.5 TH/MM3 (4.0-11.0)
[2016-11-28 08:02] LABS: BICARBONATE 18.7 MEQ/L (21.0-32.0); CALCIUM-PROTEIN CORRECTED 8.6 MG/DL (8.5-10.1); POTASSIUM 4.2 MEQ/L (3.5-5.1); TOTAL BILIRUBIN ADULT 0.3 MG/DL (0.2-1.0)
[2016-11-28] MEDS ORDERED: CEFEPIME INJ 1,000 MG in SODIUM CHLORIDE 0.9% INJ 100 ML IV SCH (09:00)
[2016-11-28] MEDS ORDERED: FLUoxetine HCL 20 MG CAP PO SCH (09:00)
[2016-11-28] MEDS ORDERED: VANCOMYCIN 1,000 MG/NS 250 ML IV ONE ×2 (10:00)
[2016-11-28] MEDS: MEGESTROL ACETATE SUSP 400 MG/10 ML CUP PO SCH (10:56)
[2016-11-28] MEDS: CEFEPIME INJ 1,000 MG in SODIUM CHLORIDE 0.9% INJ 100 ML IV SCH (10:56)
[2016-11-28] MEDS: PANTOPRAZOLE SOD 20 MG DELAYED RELEASE TAB PO SCH (10:57)
[2016-11-28] MEDS: FLUoxetine HCL 20 MG CAP PO SCH (10:57)
[2016-11-28] MEDS: DOCUSATE SODIUM 50 MG/SENNA 8.6 MG TAB PO SCH ×2 (10:58→20:05)
[2016-11-28] MEDS: FERROUS SULFATE 325 MG (65 MG ELEMENTAL IRON) TAB PO SCH ×2 (10:58→17:17)
[2016-11-28] MEDS: MULTIVITAMINS/MINERALS THERAPEUTIC TAB PO SCH (10:58)
[2016-11-28] MEDS: BUMETANIDE 1 MG TAB PO SCH (10:59)
[2016-11-28] MEDS: SODIUM CHLORIDE 0.9% FLUSH 10 ML FLUSH IV FLUSH SCH ×2 (10:59→20:04)
[2016-11-28] MEDS ORDERED: GLYCOPYRROLATE 1 MG/5 ML SYRINGE IV PUSH ONE (12:00)
[2016-11-28] MEDS ORDERED: LIDOCAINE HCL 1% PF 5 ML AMPULE OTHER ONE (12:00)
[2016-11-28] MEDS ORDERED: ROCURONIUM INJ 50 MG/5 ML SYRINGE IV PUSH ONE (12:00)
[2016-11-28] MEDS ORDERED: NEOSTIGMINE 3 MG/3 ML SYR IV ONE (12:00)
[2016-11-28] MEDS ORDERED: PHENYLEPH/NS 1000 MCG/10 ML SYR IV ONE (12:00)
[2016-11-28] MEDS ORDERED: ONDANSETRON HCL 4 MG/2 ML VIAL IV PUSH ONE (12:00)
[2016-11-28] MEDS ORDERED: ceFAZolin INJ 1,000 MG VIAL IV ONE (12:00)
[2016-11-28] MEDS ORDERED: PROPOFOL 200 MG/20 ML AMP IV ONE (12:00)
[2016-11-28] MEDS ORDERED: SODIUM CHLORIDE 0.9% 20 ML VIAL IV ONE (12:00)
[2016-11-28] MEDS ORDERED: GENTAMICIN SULFATE 80 MG/2 ML VIAL ONE (12:25)
[2016-11-28] MEDS ORDERED: SODIUM CHLOR 0.9% 250 ML INJ 250 ML IV ONE (13:30)
[2016-11-28] MEDS ORDERED: CALCIUM CARBONATE 1.25 GM (CA 500 MG) TAB PO ONE (13:30)
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
[2016-11-28] MEDS ORDERED: BACITRACIN TOP OINT 15 GM TUBE ONE (14:18)
--- NOTE | 2016-11-28 14:24 | PD.ORT.PN ---
Subjective Subjective Remarks POD 0 s/p I&D with vac application bilateral lower legs stable in PACU Objective Vitals Vital Signs Date Time Temp Pulse Resp B/P (MAP) Pulse Ox O2 Delivery O2 Flow Rate FiO2 11/28/16 12:00 98.3 109 16 143/70 (94) 98 11/28/16 08:00 99.3 108 19 138/65 (89) 98 11/28/16 04:00 98.9 112 20 156/70 (98) 98 11/28/16 00:00 98.9 102 18 123/55 (77) 97 11/27/16 23:17 18 11/27/16 22:00 94 11/27/16 20:38 97.9 11/27/16 20:23 92 18 125/60 (81) 99 Room Air 11/27/16 18:15 104 18 116/54 (74) 99 Room Air 11/27/16 17:36 (87) 11/27/16 17:19 Room Air 11/27/16 17:18 100 Room Air 11/27/16 16:40 107 20 140/61 (87) 99 Room Air I/O 11/27/16 11/27/16 11/27/16 11/28/16 11/28/16 11/28/16 07:00 15:00 23:00 07:00 15:00 23:00 Intake Total 2100 ml 240 ml Output Total 300 ml 650 ml Balance 1800 ml -410 ml Intake Oral 240 ml IV Total 2100 ml Output Urine Total 300 ml 650 ml # Voids 1 # Bowel Movements 1 0 Result Diagram: 11/28/16 0550 11/28/16 0550 Imaging Last 24 hours Impressions Chest X-Ray 11/27/16 1645 Signed Impressions: Service Date/Time: November 17:17 - CONCLUSION: 1. Moderate-sized hiatal hernia with concomitant left lingular and left basilar atelectatic changes. 2. No acute infiltrate. Trevor Royal MD Objective Remarks LLE: dressings clean and dry. intact. vac in place. good seal RLE: dressings clean and dry. intact. vac in place. good seal Assessment & Plan Assessment and Plan 1) Left Ankle fx with degloving and skin necrosis 2) Left Clavicle Fx 3) Right Foot Fxs 4) Right Leg Traumatic wound with wound necrosis -maintain vacs bilateral legs. -vac settings: 100mmHg, low, 3:1 bilateral vacs -consult plastics for definitive care of lower legs. -probable I&D next week -WBAT on RLE -NWB and maintain splint on LLE Kana Walter Nov 28, 2016 14:24
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
[2016-11-28] MEDS ORDERED: DO NOT ADM ANY ANTICOAGULANT DRUGS PRN (15:10)
[2016-11-28] MEDS: CALCIUM/VITAMIN D 250 MG/125 U TAB PO SCH (17:17)
[2016-11-28] MEDS: ATORVASTATIN 40 MG TAB PO SCH (20:03)
[2016-11-28] MEDS ORDERED: HEPARIN SODIUM - SQ 10,000 UNITS/ML VIAL SQ SCH (21:00)
[2016-11-28] MEDS: ACETAMINOPHEN/HYDROcodone 325 MG/7.5 MG TAB PO PRN (22:03)
[2016-11-29] VITALS (11 sets, daily range): BP systolic 103–171; BP diastolic 54–79; PULSE 67–123; RESP 16–20; TEMP 97.1–99.7; O2SAT 93–99
[2016-11-29] MEDS: LORazepam 0.5 MG TAB PO PRN (00:28)
[2016-11-29] MEDS ORDERED: NITROGLYCERIN 0.4 MG SL 25 TABS/BTL SL ONE (00:30)
[2016-11-29 01:00] LABS: AUTOMATED NEUTROPHIL # 5.2 TH/MM3 (1.8-7.7); BASOPHIL % 0.5 % (0.0-2.0); EOSINOPHIL # 0.1 TH/MM3 (0-0.4); EOSINOPHIL % 0.7 % (0.0-4.0); LYMPH % 26.4 % (9.0-44.0); LYMPHOCYTE # 2.2 TH/MM3 (1.0-4.8); MEAN CORPUSCULAR HEMOGLOBIN 29.8 PG (27.0-34.0); MEAN CORPUSCULAR HGB CONC 32.8 % (32.0-36.0); NEUT % 61.4 % (16.0-70.0); PLATELET COUNT 353 TH/MM3 (150-450); RED BLOOD COUNT 2.24 MIL/MM3 (4.00-5.30); RED CELL DISTRIBUTION WIDTH 15.2 % (11.6-17.2); WHITE BLOOD COUNT 8.4 TH/MM3 (4.0-11.0)
[2016-11-29 01:01] LABS: HEMO FLAGS DIFF FINAL
[2016-11-29 01:07] LABS: HEMATOCRIT 20.4 % (35.0-46.0)
[2016-11-29] MEDS ORDERED: ACETAMINOPHEN 325 MG TAB PO PRN (01:30)
[2016-11-29] MEDS ORDERED: FUROSEMIDE 20 MG/2 ML VIAL IV ONE (01:30)
[2016-11-29] MEDS ORDERED: SODIUM CHLOR 0.9% 250 ML INJ 250 ML IV ONE (01:30)
[2016-11-29] MEDS: diphenhydrAMINE HCL 25 MG CAP PO PRN (01:37)
[2016-11-29 01:40] LABS: ANION GAP 11 MEQ/L (5-15); BICARBONATE 16.9 MEQ/L (21.0-32.0); BLOOD UREA NITROGEN 35 MG/DL (7-18); CHLORIDE 111 MEQ/L (98-107); CREATINE KINASE 21 U/L (26-192); GLOMERULAR FILTRATION RATE 34 ML/MIN (>89); POTASSIUM 4.4 MEQ/L (3.5-5.1); SODIUM (NA) 139 MEQ/L (136-145)
[2016-11-29] MEDS: SODIUM CHLOR 0.9% 1000 ML INJ 1,000 ML IV SCH ×2 (05:19→17:20)
[2016-11-29 07:04] LABS: AUTOMATED NEUTROPHIL # 4.5 TH/MM3 (1.8-7.7); BASOPHIL % 0.6 % (0.0-2.0); EOSINOPHIL # 0.1 TH/MM3 (0-0.4); HEMATOCRIT 25.3 % (35.0-46.0); HEMO FLAGS DIFF FINAL; LYMPH % 25.9 % (9.0-44.0); MEAN CELL VOLUME 89.7 FL (80.0-100.0); MEAN CORPUSCULAR HEMOGLOBIN 29.5 PG (27.0-34.0); MEAN CORPUSCULAR HGB CONC 32.9 % (32.0-36.0); MONO % 12.4 % (0.0-8.0); NEUT % 60.1 % (16.0-70.0); PLATELET COUNT 334 TH/MM3 (150-450); RED BLOOD COUNT 2.82 MIL/MM3 (4.00-5.30); RED CELL DISTRIBUTION WIDTH 15.8 % (11.6-17.2); WHITE BLOOD COUNT 7.6 TH/MM3 (4.0-11.0)
[2016-11-29 07:09] LABS: ANION GAP 7 MEQ/L (5-15); AST (GOT) 16 U/L (15-37); BICARBONATE 19.9 MEQ/L (21.0-32.0); BLOOD UREA NITROGEN 35 MG/DL (7-18); CHLORIDE 112 MEQ/L (98-107); GLOMERULAR FILTRATION RATE 34 ML/MIN (>89); MAGNESIUM 1.7 MG/DL (1.5-2.5); POTASSIUM 4.3 MEQ/L (3.5-5.1); SODIUM (NA) 139 MEQ/L (136-145)
[2016-11-29 07:10] LABS: ALT (GPT) 14 U/L (10-53)
[2016-11-29 07:12] LABS: ALKALINE PHOSPHATASE 63 U/L (45-117); TOTAL BILIRUBIN ADULT 0.8 MG/DL (0.2-1.0)
[2016-11-29] MEDS: SODIUM CHLORIDE 0.9% FLUSH 10 ML FLUSH IV FLUSH SCH ×2 (09:00→21:00)
[2016-11-29] MEDS: FLUoxetine HCL 20 MG CAP PO SCH (10:27)
[2016-11-29] MEDS: PANTOPRAZOLE SOD 20 MG DELAYED RELEASE TAB PO SCH (10:27)
[2016-11-29] MEDS: MULTIVITAMINS/MINERALS THERAPEUTIC TAB PO SCH (10:28)
[2016-11-29] MEDS: FERROUS SULFATE 325 MG (65 MG ELEMENTAL IRON) TAB PO SCH ×2 (10:28→17:19)
[2016-11-29] MEDS: CALCIUM/VITAMIN D 250 MG/125 U TAB PO SCH ×3 (10:28→17:19)
[2016-11-29] MEDS: BUMETANIDE 1 MG TAB PO SCH (10:28)
[2016-11-29] MEDS: DOCUSATE SODIUM 50 MG/SENNA 8.6 MG TAB PO SCH ×2 (10:29→21:56)
[2016-11-29] MEDS: MEGESTROL ACETATE SUSP 400 MG/10 ML CUP PO SCH (10:29)
[2016-11-29] MEDS ORDERED: VANCOMYCIN 1,000 MG/NS 250 ML IV ONE ×2 (11:00)
[2016-11-29] MEDS: CEFEPIME INJ 1,000 MG in SODIUM CHLORIDE 0.9% INJ 100 ML IV SCH (12:02)
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
--- NOTE | 2016-11-29 13:39 | PD.ORT.PN ---
Subjective Subjective Remarks no new complaints about legs Objective Vitals Vital Signs Date Time Temp Pulse Resp B/P (MAP) Pulse Ox O2 Delivery O2 Flow Rate FiO2 11/29/16 12:00 97.1 103 16 145/67 (93) 93 11/29/16 08:35 94 21 11/29/16 08:00 97.3 93 16 142/67 (92) 95 11/29/16 05:26 99.0 88 18 127/59 95 11/29/16 04:00 98.9 11/29/16 02:51 99.2 103 18 128/57 94 11/29/16 02:38 20 11/29/16 02:34 97.6 117 18 169/79 96 11/29/16 02:00 18 11/29/16 00:31 99.7 123 20 171/79 (109) 94 11/28/16 20:00 98.0 80 20 100/52 (68) 95 11/28/16 20:00 77 11/28/16 19:02 96 Nasal Cannula 2.00 11/28/16 16:30 96.6 89 17 118/56 (76) 96 11/28/16 16:15 97.7 94 14 121/57 (78) 98 Nasal Cannula 2 11/28/16 16:00 96 14 139/58 (85) 98 Nasal Cannula 2 11/28/16 15:45 90 14 136/59 (84) 97 Nasal Cannula 2 11/28/16 15:30 88 14 128/56 (80) 96 Nasal Cannula 2 11/28/16 15:15 91 14 117/58 (77) 96 Nasal Cannula 3 11/28/16 15:07 97.7 100 14 122/56 (78) 94 Nasal Cannula 4 I/O 11/28/16 11/28/16 11/28/16 11/29/16 11/29/16 11/29/16 07:00 15:00 23:00 07:00 15:00 23:00 Intake Total 240 ml 445 ml 100 ml 400 ml Output Total 650 ml 850 ml Balance -410 ml 445 ml -750 ml 400 ml Intake Oral 240 ml 100 ml IV Total 445 ml Packed Cells 400 ml Output Urine Total 650 ml 850 ml # Voids 1 4 # Bowel Movements 0 0 Result Diagram: 11/29/1612 11/29/16 06 Imaging Last 24 hours Impressions Chest X-Ray 11/27/16 2061 Signed Impressions: Service Date/Time: November 17:17 - CONCLUSION: 1. Moderate-sized hiatal hernia with concomitant left lingular and left basilar atelectatic changes. 2. No acute infiltrate. Trevor Royal MD Objective Remarks LLE: dressings clean and dry. intact. vac in place. good seal RLE: dressings clean and dry. intact. vac in place. good seal fx boots at bedside, but not on Assessment & Plan Assessment and Plan 1) Left Ankle fx with degloving and skin necrosis 2) Left Clavicle Fx 3) Right Foot Fxs 4) Right Leg Traumatic wound with wound necrosis POD #1 -maintain vacs bilateral legs. -vac settings: 100mmHg, low, 3:1 bilateral vacs -consult plastics for definitive care of lower legs. -probable I&D next week -WBAT on RLE -NWB and maintain splint on LLE -Dr. Vera team with re-asses early next week Ayan Cuasey MD Nov 29, 2016 13:39
[2016-11-29] MEDS: ACETAMINOPHEN/HYDROcodone 325 MG/7.5 MG TAB PO PRN (14:59)
[2016-11-29] MEDS: HEPARIN SODIUM - SQ 10,000 UNITS/ML VIAL SQ SCH (15:04)
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
--- NOTE | 2016-11-29 16:29 | EKG ---
Date Performed: 11/29/2016 Time Performed: 00:38:44 PTAGE: 81 years EKG: Sinus tachycardia Lateral T wave changes are nonspecific Compared to prior tracing no signi ficant change Borderline ECG PREVIOUS TRACING : 10/19/2016 19.35 DOCTOR: Rafael Serrano Interpretating Date/Time 11/29/2016 16:29:07
[2016-11-29] MEDS: ATORVASTATIN 40 MG TAB PO SCH (21:56)
[2016-11-30] VITALS (8 sets, daily range): BP systolic 87–157; BP diastolic 50–71; PULSE 68–104; RESP 16–18; TEMP 96.4–99.8; O2SAT 95–99
[2016-11-30] MEDS: HEPARIN SODIUM - SQ 10,000 UNITS/ML VIAL SQ SCH ×2 (04:02→13:43)
[2016-11-30] MEDS: SODIUM CHLORIDE 0.9% FLUSH 10 ML FLUSH IV FLUSH SCH (09:00)
[2016-11-30] MEDS: MULTIVITAMINS/MINERALS THERAPEUTIC TAB PO SCH (09:54)
[2016-11-30] MEDS: ACETAMINOPHEN/HYDROcodone 325 MG/7.5 MG TAB PO PRN ×2 (09:55→19:27)
[2016-11-30] MEDS: CALCIUM/VITAMIN D 250 MG/125 U TAB PO SCH ×3 (09:55→17:50)
[2016-11-30] MEDS: PANTOPRAZOLE SOD 20 MG DELAYED RELEASE TAB PO SCH (09:55)
[2016-11-30] MEDS: FERROUS SULFATE 325 MG (65 MG ELEMENTAL IRON) TAB PO SCH ×2 (09:55→17:50)
[2016-11-30] MEDS: DOCUSATE SODIUM 50 MG/SENNA 8.6 MG TAB PO SCH ×2 (09:55→19:27)
[2016-11-30] MEDS: FLUoxetine HCL 20 MG CAP PO SCH (09:56)
[2016-11-30] MEDS: MEGESTROL ACETATE SUSP 400 MG/10 ML CUP PO SCH (09:56)
[2016-11-30] MEDS: MORPHINE SULFATE 4 MG/ML INJ IV PUSH PRN (10:07)
[2016-11-30] MEDS ORDERED: ACETAMINOPHEN/HYDROcodone 325 MG/7.5 MG TAB PO PRN (10:15)
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
[2016-11-30] MEDS: CEFEPIME INJ 1,000 MG in SODIUM CHLORIDE 0.9% INJ 100 ML IV SCH (13:43)
[2016-11-30] MEDS: SODIUM CHLOR 0.9% 1000 ML INJ 1,000 ML IV SCH (13:44)
[2016-11-30 16:55] LABS: HEMATOCRIT 22.3 % (35.0-46.0); MEAN CELL VOLUME 90.8 FL (80.0-100.0); MEAN CORPUSCULAR HEMOGLOBIN 28.7 PG (27.0-34.0); MEAN CORPUSCULAR HGB CONC 31.6 % (32.0-36.0); PLATELET COUNT 298 TH/MM3 (150-450); RED BLOOD COUNT 2.45 MIL/MM3 (4.00-5.30); RED CELL DISTRIBUTION WIDTH 16.2 % (11.6-17.2); REVIEW FLAG FINAL; WHITE BLOOD COUNT 5.2 TH/MM3 (4.0-11.0)
[2016-11-30 17:25] LABS: BICARBONATE 17.2 MEQ/L (21.0-32.0); POTASSIUM 3.9 MEQ/L (3.5-5.1)
[2016-11-30 17:47] LABS: CALCIUM-PROTEIN CORRECTED 8.8 MG/DL (8.5-10.1)
[2016-11-30] MEDS: ATORVASTATIN 40 MG TAB PO SCH (19:27)
[2016-12-01] VITALS (14 sets, daily range): BP systolic 116–157; BP diastolic 59–78; PULSE 73–108; RESP 16–18; TEMP 96.7–99.1; O2SAT 95–98
[2016-12-01] MEDS: diphenhydrAMINE HCL 25 MG CAP PO PRN (00:26)
[2016-12-01] MEDS: SODIUM CHLORIDE 0.9% FLUSH 10 ML FLUSH IV FLUSH SCH ×3 (00:26→20:36)
[2016-12-01] MEDS: HEPARIN SODIUM - SQ 10,000 UNITS/ML VIAL SQ SCH ×2 (04:47→14:10)
[2016-12-01] MEDS: ACETAMINOPHEN/HYDROcodone 325 MG/7.5 MG TAB PO PRN ×2 (04:48→14:07)
[2016-12-01] MEDS: SODIUM CHLOR 0.9% 1000 ML INJ 1,000 ML IV SCH ×2 (04:48→18:40)
[2016-12-01 06:50] LABS: AUTOMATED NEUTROPHIL # 3.6 TH/MM3 (1.8-7.7); BASOPHIL % 0.4 % (0.0-2.0); EOSINOPHIL # 0.1 TH/MM3 (0-0.4); EOSINOPHIL % 1.8 % (0.0-4.0); HEMATOCRIT 30.2 % (35.0-46.0); HEMO FLAGS DIFF FINAL; LYMPH % 36.4 % (9.0-44.0); LYMPHOCYTE # 2.6 TH/MM3 (1.0-4.8); MEAN CELL VOLUME 91.7 FL (80.0-100.0); MEAN CORPUSCULAR HEMOGLOBIN 30.4 PG (27.0-34.0); MEAN CORPUSCULAR HGB CONC 33.1 % (32.0-36.0); MONO % 10.7 % (0.0-8.0); NEUT % 50.7 % (16.0-70.0); PLATELET COUNT 307 TH/MM3 (150-450); RED BLOOD COUNT 3.29 MIL/MM3 (4.00-5.30); RED CELL DISTRIBUTION WIDTH 16.1 % (11.6-17.2); WHITE BLOOD COUNT 7.2 TH/MM3 (4.0-11.0)
--- NOTE | 2016-12-01 07:06 | PD.ORT.PN ---
Subjective Subjective Remarks POD 3 s/p I&D with vac application bilateral lower legs stable. pain controlled. no complaints Objective Vitals Vital Signs Date Time Temp Pulse Resp B/P (MAP) Pulse Ox O2 Delivery O2 Flow Rate FiO2 12/01/16 04:31 98.9 92 18 142/69 (93) 98 12/01/16 04:19 98.9 108 17 157/78 (104) 96 12/01/16 02:22 99.1 94 18 142/68 (92) 97 12/01/16 00:34 98.7 84 16 129/63 95 12/01/16 00:31 98.7 84 16 129/63 (85) 95 12/01/16 00:24 98.5 108 16 116/59 (78) 96 11/30/16 21:05 96.4 81 17 118/56 (76) 95 11/30/16 20:11 82 11/30/16 16:00 97.6 71 17 87/50 (62) 99 11/30/16 14:01 97 21 11/30/16 12:00 99.8 92 16 110/58 (75) 98 11/30/16 08:00 98.8 104 17 157/71 (99) 96 I/O 11/30/16 11/30/16 11/30/16 12/01/16 12/01/16 12/01/16 07:00 15:00 23:00 07:00 15:00 23:00 Intake Total 2250 ml 95 ml 600 ml 2060 ml Output Total 1000 ml 700 ml Balance 1250 ml 95 ml 600 ml 1360 ml Intake Oral 480 ml 600 ml 480 ml IV Total 1770 ml 95 ml 630 ml Packed Cells 900 ml Blood Product IV Normal Saline Flush 50 ml Output Urine Total 1000 ml 700 ml Drainage Total 0 ml 0 ml # Voids 3 # Bowel Movements 0 0 Result Diagram: 12/01/16 0609 11/30/16 1530 Imaging Last 24 hours Impressions Chest X-Ray 11/27/16 1645 Signed Impressions: Service Date/Time: November 17:17 - CONCLUSION: 1. Moderate-sized hiatal hernia with concomitant left lingular and left basilar atelectatic changes. 2. No acute infiltrate. Trevor Royal MD Objective Remarks LLE: dressings clean and dry. intact. vac in place. good seal, slpinted RLE: dressings clean and dry. intact. vac in place. good seal Both feet have BCR about the toes, no new swelling of the toes compared to yesterday, no definite signs of ischaemia. Assessment & Plan Assessment and Plan 1) Left Ankle fx with degloving and skin necrosis 2) Left Clavicle Fx 3) Right Foot Fxs 4) Right Leg Traumatic wound with wound necrosis POD #3 -maintain vacs bilateral legs. -vac settings: 100mmHg, low, 3:1 bilateral vacs -consult plastics for definitive care of lower legs. -probable I&D next week -WBAT on RLE -NWB and maintain splint on LLE -plan for vac change at bedside thursday. will need xeroform/ 2 large vac sponges and trac pads/ ioband Kana Walter Dec 01, 2016 07:06
[2016-12-01] MEDS: FERROUS SULFATE 325 MG (65 MG ELEMENTAL IRON) TAB PO SCH ×2 (08:31→18:25)
[2016-12-01] MEDS: DOCUSATE SODIUM 50 MG/SENNA 8.6 MG TAB PO SCH ×2 (08:32→20:37)
[2016-12-01] MEDS: PANTOPRAZOLE SOD 20 MG DELAYED RELEASE TAB PO SCH (08:32)
[2016-12-01] MEDS: MULTIVITAMINS/MINERALS THERAPEUTIC TAB PO SCH (08:32)
[2016-12-01] MEDS: FLUoxetine HCL 20 MG CAP PO SCH (08:32)
[2016-12-01] MEDS: MEGESTROL ACETATE SUSP 400 MG/10 ML CUP PO SCH (08:32)
[2016-12-01] MEDS: CALCIUM/VITAMIN D 250 MG/125 U TAB PO SCH ×3 (08:32→18:26)
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
[2016-12-01] MEDS ORDERED: VANCOMYCIN 1,000 MG/NS 250 ML IV ONE ×2 (12:00)
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
[2016-12-01] MEDS: AMOXICILLIN/CLAVULANATE K 500 MG TAB PO SCH ×2 (14:46→20:37)
[2016-12-01] MEDS: ATORVASTATIN 40 MG TAB PO SCH (20:37)
[2016-12-02] VITALS (9 sets, daily range): BP systolic 117–171; BP diastolic 56–89; PULSE 71–105; RESP 16–18; TEMP 97.9–98.9; O2SAT 94–100
[2016-12-02] MEDS: HEPARIN SODIUM - SQ 10,000 UNITS/ML VIAL SQ SCH ×2 (03:18→15:55)
[2016-12-02] MEDS: ACETAMINOPHEN/HYDROcodone 325 MG/7.5 MG TAB PO PRN ×2 (03:18→13:02)
[2016-12-02] MEDS: AMOXICILLIN/CLAVULANATE K 500 MG TAB PO SCH ×3 (05:09→21:40)
[2016-12-02] MEDS: SODIUM CHLOR 0.9% 1000 ML INJ 1,000 ML IV SCH ×2 (07:56→21:40)
[2016-12-02] MEDS: MEGESTROL ACETATE SUSP 400 MG/10 ML CUP PO SCH (07:59)
[2016-12-02 08:00] LABS: BICARBONATE 16.7 MEQ/L (21.0-32.0); POTASSIUM 3.9 MEQ/L (3.5-5.1)
[2016-12-02] MEDS: FLUoxetine HCL 20 MG CAP PO SCH (08:00)
[2016-12-02] MEDS: DOCUSATE SODIUM 50 MG/SENNA 8.6 MG TAB PO SCH ×2 (08:00→19:10)
[2016-12-02] MEDS: FERROUS SULFATE 325 MG (65 MG ELEMENTAL IRON) TAB PO SCH ×2 (08:00→15:55)
[2016-12-02] MEDS: MULTIVITAMINS/MINERALS THERAPEUTIC TAB PO SCH (08:00)
[2016-12-02] MEDS: PANTOPRAZOLE SOD 20 MG DELAYED RELEASE TAB PO SCH (08:00)
[2016-12-02] MEDS: SODIUM CHLORIDE 0.9% FLUSH 10 ML FLUSH IV FLUSH SCH ×2 (08:01→19:10)
[2016-12-02] MEDS: CALCIUM/VITAMIN D 250 MG/125 U TAB PO SCH ×3 (08:01→15:54)
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
[2016-12-02] MEDS: amLODIPine BESYLATE 5 MG TAB PO SCH (09:00)
[2016-12-02] MEDS ORDERED: PILL SPLITTER OTHER PRN (09:00)
[2016-12-02] MEDS: SILVER SULFADIAZINE 1% CR 400 GM JAR TOPICAL SCH (15:00)
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
[2016-12-02] MEDS: ATORVASTATIN 40 MG TAB PO SCH (19:12)
[2016-12-03 00:34] VITALS: BP 172/79; PULSE 101; RESP 17; TEMP 98.4; O2SAT 98
[2016-12-03] MEDS: HEPARIN SODIUM - SQ 10,000 UNITS/ML VIAL SQ SCH ×2 (03:00→15:00)
[2016-12-03 04:55] VITALS: BP 168/88; PULSE 109; RESP 18; TEMP 97.8; O2SAT 97
[2016-12-03] MEDS: AMOXICILLIN/CLAVULANATE K 500 MG TAB PO SCH ×3 (05:34→21:15)
[2016-12-03 08:00] VITALS: BP 184/88; PULSE 103; RESP 16; TEMP 98.4; O2SAT 97
[2016-12-03] MEDS: FLUoxetine HCL 20 MG CAP PO SCH (08:52)
[2016-12-03] MEDS: amLODIPine BESYLATE 5 MG TAB PO SCH (08:52)
[2016-12-03] MEDS: MULTIVITAMINS/MINERALS THERAPEUTIC TAB PO SCH (08:52)
[2016-12-03] MEDS: MEGESTROL ACETATE SUSP 400 MG/10 ML CUP PO SCH (08:52)
[2016-12-03] MEDS: PANTOPRAZOLE SOD 20 MG DELAYED RELEASE TAB PO SCH (08:53)
[2016-12-03] MEDS: CALCIUM/VITAMIN D 250 MG/125 U TAB PO SCH ×3 (08:53→16:25)
[2016-12-03] MEDS: SODIUM CHLORIDE 0.9% FLUSH 10 ML FLUSH IV FLUSH SCH ×3 (08:53→21:14)
[2016-12-03] MEDS: DOCUSATE SODIUM 50 MG/SENNA 8.6 MG TAB PO SCH ×2 (08:53→21:15)
[2016-12-03] MEDS: SILVER SULFADIAZINE 1% CR 400 GM JAR TOPICAL SCH (08:53)
[2016-12-03] MEDS: FERROUS SULFATE 325 MG (65 MG ELEMENTAL IRON) TAB PO SCH ×2 (08:53→16:25)
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
[2016-12-03 12:00] VITALS: BP 146/68; PULSE 80; RESP 18; TEMP 97.5; O2SAT 99
[2016-12-03 16:00] VITALS: BP 163/79; PULSE 105; RESP 17; TEMP 96.4; O2SAT 98
[2016-12-03] MEDS: LORazepam 0.5 MG TAB PO PRN (16:26)
[2016-12-03 20:00] VITALS: BP 180/89; PULSE 106; RESP 17; TEMP 97.9; O2SAT 96
[2016-12-03] MEDS: ATORVASTATIN 40 MG TAB PO SCH (21:15)
[2016-12-04 00:48] VITALS: BP 157/76; PULSE 100; RESP 16; TEMP 97.1; O2SAT 97
[2016-12-04 02:39] VITALS: PULSE 106
[2016-12-04] MEDS: HEPARIN SODIUM - SQ 10,000 UNITS/ML VIAL SQ SCH (03:24)
[2016-12-04 04:00] VITALS: BP 168/89; PULSE 98; RESP 17; TEMP 96.7; O2SAT 94
[2016-12-04] MEDS: AMOXICILLIN/CLAVULANATE K 500 MG TAB PO SCH (06:01)
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
[2016-12-04 08:00] VITALS: BP 180/70; PULSE 97; RESP 18; TEMP 95.9; O2SAT 98
[2016-12-04] MEDS ORDERED: AMLO5 PO (08:06)
[2016-12-04] MEDS ORDERED: AUGM500T7 PO (08:06)
[2016-12-04] MEDS ORDERED: HYDR-3580 PO (08:06)
[2016-12-04] MEDS ORDERED: CALC250 PO (08:06)
[2016-12-04] MEDS: PANTOPRAZOLE SOD 20 MG DELAYED RELEASE TAB PO SCH (08:25)
[2016-12-04] MEDS: FLUoxetine HCL 20 MG CAP PO SCH (08:25)
[2016-12-04] MEDS: DOCUSATE SODIUM 50 MG/SENNA 8.6 MG TAB PO SCH (08:25)
[2016-12-04] MEDS: SODIUM CHLORIDE 0.9% FLUSH 10 ML FLUSH IV FLUSH SCH (08:25)
[2016-12-04] MEDS: MULTIVITAMINS/MINERALS THERAPEUTIC TAB PO SCH (08:25)
[2016-12-04] MEDS: FERROUS SULFATE 325 MG (65 MG ELEMENTAL IRON) TAB PO SCH (08:25)
[2016-12-04] MEDS: MEGESTROL ACETATE SUSP 400 MG/10 ML CUP PO SCH (08:25)
[2016-12-04] MEDS: CALCIUM/VITAMIN D 250 MG/125 U TAB PO SCH (08:25)
[2016-12-04] MEDS: SILVER SULFADIAZINE 1% CR 400 GM JAR TOPICAL SCH (08:26)
[2016-12-04] MEDS ORDERED: amLODIPine BESYLATE 5 MG TAB PO SCH (09:00)
== END 2016-12-04 11:22 | DRG 856 ==
LOC: NEPE 16:26 → NEDA 19:05 → N07A 21:32
PROVIDERS: ADMIT Internal Medicine; ATTEND Internal Medicine
PROC: 0JBN0ZZ Excision of Right Lower Leg Subcutaneous Tissue and Fascia, Open Approach (ICD-10-PCS; 2016-11-28)
PROC: 0JBP0ZZ Excision of Left Lower Leg Subcutaneous Tissue and Fascia, Open Approach (ICD-10-PCS; 2016-11-28)
PROC: 0JBQ0ZZ Excision of Right Foot Subcutaneous Tissue and Fascia, Open Approach (ICD-10-PCS; 2016-11-28)
PROC: 2W1TX6Z Compression of Left Foot using Pressure Dressing (ICD-10-PCS; 2016-11-28)
PROC: 2W1MX6Z Compression of Left Lower Extremity using Pressure Dressing (ICD-10-PCS; 2016-11-28)
PROC: 2W1QX6Z Compression of Right Lower Leg using Pressure Dressing (ICD-10-PCS; 2016-11-28)
PROC: 0JBR0ZZ Excision of Left Foot Subcutaneous Tissue and Fascia, Open Approach (ICD-10-PCS; principal; 2016-11-28 13:19)
PROC: 30233N1 Transfusion of Nonautologous Red Blood Cells into Peripheral Vein, Percutaneous Approach (ICD-10-PCS; 2016-11-29)
DX: T81.4XXA Infection following a procedure, initial encounter (principal); A41.9 Sepsis, unspecified organism; E86.0 Dehydration; D64.9 Anemia, unspecified; E83.51 Hypocalcemia; N28.9 Disorder of kidney and ureter, unspecified; E78.5 Hyperlipidemia, unspecified; I10 Essential (primary) hypertension; F32.9 Major depressive disorder, single episode, unspecified; K21.9 Gastro-esophageal reflux disease without esophagitis
CPT/HCPCS: 36430; 71010; 80048; 80053; 80202; 81001; 82550; 83605; 83735; 84100; 84155; 84484; 85025; 85027; 86140; 86850; 86900; 86901; 86920; 87015; 87040; 87070; 87086; 87102; 87116; 87205; 87206; 93005; 96361; 96365; 96375; J0690; J0692; J1580; J1644; J1940; J2270; J2370; J2405; J2543; J2710; J3010; J3370; J7030; J7050; P9016